=== PATIENT | male | born 1945 | race Caucasian/White ===

== ENCOUNTER 2019-01-21 09:28 | Day surgery (SDC) | payer MEDICARE, OTHER ==
[2019-01-20 08:43] VITALS: BMI 32.1
--- NOTE | 2019-01-21 19:40 | OP ---
DATE OF PROCEDURE: 01/21/2019 PARCEL WRAPPER SURGEON: None. PROCEDURES PERFORMED: 1. Esophagogastroduodenoscopy with biopsies. 2. Colonoscopy, diagnostic. INDICATIONS: 1. Melena. 2. Acute blood loss anemia. 3. Hematemesis, single episode this morning. 4. The patient has a left lower extremity DVT and was recently started on Eliquis. His aspirin has been held, but Eliquis continued per the recommendations of his chief data officer. 5. The patient reports having had a normal colonoscopy 3 years ago. MEDICATIONS: See Anesthesia record. FINDINGS: After discussion of the risks, benefits, and alternatives of the procedure, informed consent was obtained and witnessed. Pre-endoscopic cardiopulmonary examination was satisfactory. Time-out was performed before sedation was achieved. Sedation was achieved with Anesthesia assistance in the endoscopy unit. A Pentax adult upper endoscope was placed into the oropharynx and passed through the cricopharyngeus under direct visualization. The esophageal mucosa appeared normal throughout with a normal-appearing Z-line. However, just beyond the Z-line at the GE junction, there was a mass lesion. This measures about 2 to 3 cm in diameter. It was friable, and there was some mild active oozing of blood from some mild ulcerated areas on this mass. There was no significant old blood or active bleeding in the stomach however. I obtained a couple of biopsies from this mass lesion. Increased oozing was minimal. The remainder of the gastric mucosa appeared normal. The endoscope was passed through the pylorus and into the first and second portions of the duodenum, which appeared normal. The upper endoscope was completely withdrawn, and the patient was repositioned. Digital rectal exam was performed, which was unremarkable. A Pentax adult colonoscope was inserted into the anus and passed forward to the cecum in the usual fashion. The cecal base was identified by the appendiceal orifice. It appears the patient has had an ileocecal anastomosis. The anastomotic area looks healthy without any friability. The endoscope was passed into the terminal ileum, which was examined to a distance of 5 cm and also appeared normal. The colonoscope was completely withdrawn in a gradual and circumferential manner with careful examination of the entire colonic mucosa. The quality of the prep was good. There was no evidence of any old blood or active bleeding in the colon. There were 2 small 5-mm sessile polyps visualized in the colon, one was at 70-cm from the anal verge and the other was at 25-cm from the anal verge. Due to the patient's being on Eliquis as well as significant upper endoscopy findings, I did not attempt polypectomy on these small polyps today. There was diverticulosis in the left side of the colon. Retroflexion of the rectum demonstrates no additional abnormalities. The colonoscope was completely withdrawn, and the patient was allowed to recover. The patient tolerated the procedure well. There were no immediate postprocedure complications. IMPRESSION: 1. GE junction mass with mild active oozing, measuring 2 to 3 cm in diameter. Biopsied for histology. 2. Otherwise normal esophagogastroduodenoscopy. 3. Small sessile colon polyps at 70-cm and 25-cm, not removed. 4. Left-sided colonic diverticulosis. 5. Healthy ileocolonic anastomosis at 90 cm. 6. Otherwise, normal colonoscopy. RECOMMENDATIONS: 1. Follow up pathology on the GE junction mass biopsies. 2. Continue with oral proton pump inhibitor twice daily. 3. We will arrange for a CT of the chest, abdomen, and pelvis with contrast for staging of likely malignancy. 4. Recheck CBC next week. 5. If the GE junction mass biopsies confirm malignancy, the patient will need referral to surgery as well as Oncology. Job ID: [id number]
== END 2019-01-21 13:05 | disposition home or self-care (01) ==
LOC: SDC 09:28
PROVIDERS: ATTEND Internal Medicine
PROC: 0DB48ZX Excision of Esophagogastric Junction, Via Natural or Artificial Opening Endoscopic, Diagnostic (ICD-10-PCS; principal; 2019-01-21)
PROC: 0DJD8ZZ Inspection of Lower Intestinal Tract, Via Natural or Artificial Opening Endoscopic (ICD-10-PCS; 2019-01-21)
DX: K57.31 Diverticulosis of large intestine without perforation or abscess with bleeding (principal); D62 Acute posthemorrhagic anemia; K63.5 Polyp of colon; C16.0 Malignant neoplasm of cardia; K92.0 Hematemesis; K22.8 Other specified diseases of esophagus; M19.90 Unspecified osteoarthritis, unspecified site; N18.9 Chronic kidney disease, unspecified; J98.4 Other disorders of lung; I50.9 Heart failure, unspecified; Z79.01 Long term (current) use of anticoagulants; Z79.82 Long term (current) use of aspirin; Z87.891 Personal history of nicotine dependence; Z88.1 Allergy status to other antibiotic agents; Z88.8 Allergy status to other drugs, medicaments and biological substances; Z95.0 Presence of cardiac pacemaker
CPT/HCPCS: 88305; 88313

== ENCOUNTER 2019-01-25 13:18 | Outpatient (CLI) | payer MEDICARE, OTHER ==
--- NOTE | 2019-01-25 15:25 | CT ---
CT chest noncontrast CT abdomen and pelvis noncontrast HISTORY: Cancer of the gastroesophageal junction. COMPARISON: 12/14/2013. FINDINGS: Lungs are hyperinflated with scattered emphysematous changes. No focal mass. No pleural flu id or pneumothorax. Prominent calcification within the arterial structures, including the coronary arteries. Renal insufficiency precluded IV contrast administration. This limits evaluation of the soft tissues. No bulky mediastinal adenopathy is apparent. Oral contrast was administered. No evidence of bowel obstruction. Focal area of soft tissue lesion at the GE junction is 3.6 x 3.3 cm diameters on the axial images and likely accounts for the historically stated neoplasm. Hyperdense stones within the dependent portion of the gallbladder lumen. Prominent lobulation of urin casimiro bladder that contains gas and small amount of gas within the left renal collecting system are stable. Right kidney is surgically absent. Postoperative changes of the pelvis. IMPRESSION: No evidence of metastatic disease. Soft tissue density mass at the GE junction consistent with the support restated neoplasm. Renal insufficiency precluded IV contrast administration, limiting evaluation of the soft tissues. Status post right nephrectomy. Postoperative changes of the pelvis appear stable. Cholelithiasis. Emphysema. Atherosclerosis.
== END 2019-01-25 13:19 | disposition home or self-care (01) ==
LOC: BICCT 13:18
PROVIDERS: ATTEND Internal Medicine
DX: C16.0 Malignant neoplasm of cardia (principal); N28.9 Disorder of kidney and ureter, unspecified; Z98.890 Other specified postprocedural states; K80.20 Calculus of gallbladder without cholecystitis without obstruction; I70.90 Unspecified atherosclerosis; J43.9 Emphysema, unspecified
CPT/HCPCS: 71250; 74177

== ENCOUNTER 2019-02-13 18:07 | Inpatient (IN) | payer MEDICARE, OTHER ==
--- NOTE | 2019-02-13 18:52 | RAD ---
ONE VIEW CHEST: 02/13/19 HISTORY: Dyspnea. Difficulty breathing. COMPARISON: None. FINDINGS: Left sided transvenous pacemaker with lead position over the right atrium and right ventricle. There is atherosclerosis of the aorta. Normal cardiac silhouette. The pulmonary vessels and hilum are vane l. Costophrenic angles are clear. Emphysematous changes predominantly in the upper lobes. No pneumoth orax or osseous abnormalities. IMPRESSION: 1. Atherosclerosis. 2. No acute cardiopulmonary process. 3. Emphysema predominantly involving both upper lobes. POS: PPP
[2019-02-13 19:09] LABS: #Eosinphils 0.1 thou/uL (0.0-0.7); #Lymphocytes 0.6 thou/uL (1.20-3.40); #Monocytes 0.6 thou/uL (0.11-0.59); #Neutrophils 10.3 thou/uL (1.40-6.50); %Basophils 0.1 % (0.0-1.0); %Lymphocytes 4.9 % (21.0-51.0); %Monocytes 5.4 % (0.0-10.0); %Neutrophils 88.6 % (42.0-75.0); Hemoglobin 6.5 g/dL (14.0-18.0); Mean Corpuscular HGB CONC 33.2 g/dL (32.0-36.0); Mean Corpuscular Hemoglobin 33.8 pg (27.0-31.0); Mean Platelet Volume 7.9 fL (7.4-10.4); Platelet Count 204 thou/uL (130-400); RBC Distribution Width 15.9 % (11.5-14.5); Red Blood Cell (RBC) Count 1.93 mill/uL (4.70-6.10); White Blood Cell (WBC) Count 11.6 thou/uL (4.8-10.8)
[2019-02-13 19:29] LABS: ALT (SGPT) 28 U/L (8-55); AST (SGOT) 19 U/L (5-34); Albumin 3.2 g/dL (3.4-4.8); Alkaline Phosphatase 52 U/L (40-150); Anion Gap 13 mmol/L (10-20); BUN (Urea Nitrogen) 73 mg/dL (8.4-25.7); Bilirubin, Total 0.4 mg/dL (0.2-1.2); CK (CPK) 11 U/L (30-200); Calc. Creatinine Clearance 0 mL/min (70-130); Calcium 8.4 mg/dL (7.8-10.44); Carbon Dioxide 17 mmol/L (23-31); Chloride 117 mmol/L (98-107); Estimated GFR-MDRD 22; Globulin 2.6 g/dL (2.4-3.5); Glucose 138 mg/dL (83-110); Lipase 64 U/L (8-78); Protein, Total 5.8 g/dL (5.8-8.1); Sodium 143 mmol/L (136-145)
[2019-02-13 20:35] LABS: Bilirubin Negative (Negative); Blood, Urine Negative (Negative); Clarity CLOUDY (Clear); Glucose, Urine (Dipstick) Negative (Negative); Leukocyte Negative (Negative); Nitrite Negative (Negative); Protein, Urine (Dipstick) Trace mg/dL (Neg-Trace); Urobilinogen 0.2 mg/dL (0.2-1.0)
[2019-02-13 20:48] LABS: INR-International Normal Ratio 1.6; PTT 28.9 SEC (22.9-36.1)
[2019-02-13 20:49] LABS: D-Dimer Test 0.34 *mcg/mL (0.27-0.43)
[2019-02-13] MEDS ORDERED: Pantoprazole 40 MG VIAL ONE (20:53)
[2019-02-13] MEDS ORDERED: Pantoprazole 80 MG, Admixture Fee 1 EACH in Sodium Chloride 0.9% 100 ML IVPB SCH ×2 (21:00→21:15)
[2019-02-13] MEDS ORDERED: Diabetic Tussin 200 MG/10 ML UDCUP PO PRN (21:11)
[2019-02-13] MEDS ORDERED: Benzonatate 100 MG CAP PO PRN (21:11)
[2019-02-13] MEDS ORDERED: Loratadine 10 MG TAB PO PRN (21:11)
[2019-02-13] MEDS ORDERED: cloNIDine 0.1 MG TAB PO PRN (21:11)
[2019-02-13] MEDS ORDERED: hydrALAZINE 20 MG/ML VIAL SLOW IVP PRN (21:11)
[2019-02-13] MEDS ORDERED: Sodium Chloride 0.65% Nasal 44 ML BOT EA NARE PRN (21:11)
[2019-02-13] MEDS ORDERED: Ondansetron PF 4 MG/2 ML Vial IVP PRN (21:11)
[2019-02-13] MEDS ORDERED: Artificial Tear Sol 15 ML BOT EA EYE PRN (21:11)
[2019-02-13] MEDS ORDERED: Furosemide 20 MG/2 ML VIAL SLOW IVP SCH (21:45)
--- NOTE | 2019-02-13 22:49 | HP ---
CHIEF COMPLAINT: Shortness of breath and generalized weakness. PRIMARY CARE PHYSICIAN: Ellis Espinal MD PRIMARY SALES TEAM RECRUITER: Lopez Scott MD. PRIMARY PAN GREASER: Dr. Brody. HISTORY OF PRESENTING ILLNESS: Mr. De La Rosa is a pleasant 73-year-old male with past medical history of chronic kidney disease due to right nephrectomy and history of bladder cancer, status post neobladder formation; history of chronic systolic congestive heart failure with EF of 30%, status post pacemaker defibrillator and recent diagnosis of DVT, on chronic anticoagulation with Eliquis, who presented to the emergency room with the above-mentioned complaint. History is mainly obtained by the patient himself and the electronic medical records have been reviewed. Mr. 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 He has been seen by Dr. Hankins and started on radiation treatment over at [facility] in [place]. He is scheduled to start chemotherapy day after tomorrow by Dr. Pandya. He was having melena and was referred to [facility] and underwent EGD and colonoscopy on 01/21/2019. This is how his GE junction tumor was diagnosed. It was found out that the oozing at the tumor mass was not amenable to cauterization. Of important to note is that the patient was recently diagnosed with DVT about 3 weeks ago and was started on Eliquis. After he was treated for melena after he his EGD, it was decided that he will continue his Eliquis given high risk of DVT and PE and he was taken off his aspirin by his primary cosmetologist apprentice, Dr. Scott. He was admitted to [facility] earlier this week for radiation treatment. He continues to have melena and required transfusion 1 unit packed RBC x2 over at [facility]. He was discharged and continued on Eliquis. Now, he comes back to the ER because he is having severe generalized weakness and started to develop shortness of breath. He continues to have melena and describes it as a mucousy tardy-looking fluid without any stools. He denies any blood in his urine. He denies any chest pain, orthopnea, or PND. He has chronic swelling of his legs, which is not any worse than before. In the ER room, he was found to have a hemoglobin of 6.5, which was 11.8 in our system on 01/14/2019. His coagulation panel was rather unimpressive and within normal limits. Cardiac enzymes and urinalysis were unremarkable. Stool testing was done in the ER which was positive for fecal occult blood. Two units of packed RBC was ordered as well as Protonix drip. He is otherwise hemodynamically stable and is being admitted to Oncology floor for acute drop in hemoglobin and resultant shortness of breath due to severe anemia. PAST MEDICAL HISTORY: 1. History of bladder cancer, status post bladder resection and ileal conduit. 2. History of chronic kidney disease due to right nephrectomy. 3. History of dilated cardiomyopathy with EF of 30%, status post pacemaker and defibrillator placement. 4. Acute DVT, started on Eliquis about 3 weeks ago. 5. Chronic lung disease. 6. Chronic systolic congestive heart failure. 7. Osteoarthritis. PAST SURGICAL HISTORY: 1. Defibrillator placement insertion in 2007. 2. Right nephrectomy. 3. Right-sided stoma. 4. Bladder removal. 5. Hernia repair of abdominal wall. 6. Prostatectomy. 7. Colonoscopy in 2015 and 2019 with EGD in 2019, three weeks ago. SOCIAL HISTORY: No history of drug, tobacco, or alcohol abuse. He is and retired. FAMILY HISTORY: No significant family history of any GI illness, like colon cancer, Crohn's disease, ulcerative colitis, or IBD. No history of coronary artery disease runs in his family. ALLERGIES: INCLUDE BACTRIM, CODEINE, ERYTHROMYCIN, LATEX, LEVOFLOXACIN, NEOMYCIN, NEOSPORIN, PENICILLIN, PFIZERPEN, PHENERGAN, AND SULFONAMIDE. CURRENT HOME MEDICATION: As listed in the ER records, 1. Carvedilol 6.25 mg p.o. b.i.d. 2. Eliquis 5 mg p.o. b.i.d. 3. Folic acid 400 mcg daily. 4. Lasix 20 mg two tabs in the morning. 5. Potassium chloride 10 mEq daily. 6. Advair Diskus once daily. 7. Lovaza 1 g two tablets once a day. 8. Zyrtec p.r.n. 9. Amiodarone 200 mg daily. 10. Multivitamin daily. 11. Aspirin was taken off recently. 12. Protonix 40 mg daily. 13. Simvastatin 20 mg daily. These medications further need to be confirmed. CODE STATUS: Full code, discussed with the patient. REVIEW OF SYSTEMS: A 14-point review of system is done. It is negative, except for those mentioned in the history and physical. PHYSICAL EXAMINATION: VITAL SIGNS: Upon presentation, blood pressure 125/59, pulse of 77, respirations 20, temperature 97.8, and saturating 98% on room air. GENERAL EXAMINATION: No acute distress. Awake, alert, and oriented x3 and nontoxic appearing. HEENT: Mucous membrane is slightly pale, otherwise moist. Conjunctivae; pallor is noticed without any scleral icterus. Head is normocephalic and atraumatic. Pupils are equal and reactive to light and accommodation. Extraocular movement intact. NECK: Supple without any lymphadenopathy, JVD, or bruit. CHEST: Clear to auscultation without any wheezing, rales, or rhonchi. Rate rhythm is regular without any murmurs, rubs, or gallops. ABDOMEN: Soft, nontender, and nondistended with positive bowel sounds. EXTREMITIES: Free of any cyanosis or clubbing. He has +2 pitting edema in his right lower extremity and +1 pitting edema on left lower extremity. GENITOURINARY: He has a urinary diversion to his right lower abdomen. NEUROLOGICAL EXAMINATION: Nonfocal. SKIN: Free of any rashes or bruises. Feels warm and dry to touch. LABORATORY DATA: His CBC shows WBCs 11.6 with 88% neutrophils, hemoglobin 6.5, and platelet count of 204. PT, PTT, INR, and D-dimer are within normal limits. Serum chemistry showed chloride 117, bicarb 17, BUN 73, creatinine 2.87, and blood sugar 138. Troponin is less than 0.010. Lipase normal. Urinalysis unremarkable. Chest x-ray by my review has no evidence of pleural effusion, edema, or infiltrate. IMPRESSION AND PLAN: 1. Acute blood loss anemia. The patient will be transfused 2 units of packed RBC with one dose of Lasix in between. We will check H and H after the 2 units transfusion and again every 6 hours or so. We will keep him n.p.o. after midnight and consult Gastroenterology in the morning. Patient may need further endoscopy though he tells me that the first time it was found out that his oozing tumor was not amenable to cauterization. He will be started on proton pump drip for now. He is otherwise hemodynamically stable. We will admit him to Oncology floor. We will hold his Eliquis for now. I had a long discussion with him with regard to that and he is agreeable for it for now. 2. Dyspnea. This is secondary to acute blood loss anemia. The patient does have history of chronic systolic congestive heart failure, but does not appear to be in any fluid overload for now. Cardiac enzymes were also within normal limits. Acute coronary syndrome is not suspected. He has no signs or symptoms to suggest a pulmonary embolism either. We will give him Lasix in between the blood transfusion and avoid any further fluid resuscitation. 3. Leukocytosis, unclear etiology, most likely reactive. Patient was recently treated over at [facility] for urinary tract infection as well. 4. History of cardiac arrhythmia. I am not sure what kind of arrhythmia it was, but he reports ablation x2 and is on amiodarone. We will continue his amiodarone for now to prevent arrhythmias due to ongoing illness. Hold his Eliquis for now. 5. Recent deep venous thrombosis. Patient is presenting with acute gastrointestinal bleed and the risk of bleeding is higher at this time than the risk of clotting. I have discussed this with the patient and we will hold the dose of the Eliquis tonight. He did take the dose this morning. I did bring up the discussion of IVC filter taking him off the Eliquis, but the patient is very reluctant to even discuss it. He would rather discuss it with his cosmetologist apprentice. I have encouraged him to do same sooner than later. Further anticoagulation as per GI recommendations. We will provide him with SCDs for now and early ambulation. 6. Gastroesophageal adenocarcinoma. The patient had a CT scan of the chest, abdomen, and pelvis on 01/25/2019, which did not show any metastasis. He will be continued on radiation therapy as per his radiation oncologist, Dr. Hankins and chemotherapy as per his oncologist, Dr. Pandya. We will consult Oncology if he stays here until Friday since he is supposed to be starting his chemotherapy on Friday. 7. History of chronic kidney disease. He is status post right-sided nephrectomy, likely due to bladder cancer as well as prostatectomy. We will avoid any nephrotoxic medications. He is currently at his baseline creatinine. We will check in the morning as well. We will request Dr. Brody to follow along if his creatinine worsens. 8. History of dilated cardiomyopathy with ejection fraction of 30%. We will restart his home medications as soon as possible, including carvedilol and Lasix. Continue amiodarone for now. 9. Dyslipidemia. Continue statin and Lovaza once he is cleared to take oral medications by Gastroenterology. 10. History of bladder cancer, status post right nephrectomy and prostatectomy with ileal conduit. Currently, his urinalysis does not show any evidence of infection. Stoma care will be provided. 11. History of chronic lung disease. Unsure what kind of lung disease he has, chronic obstructive pulmonary disease versus asthma versus reactive airways disease. Currently, he is asymptomatic and stable. We will use nebulizers p.r.n. while he is in the hospital. 12. Deep venous thrombosis and gastrointestinal prophylaxis. As above, proton pump inhibitor drip and SCDs. Avoid any pharmacological deep venous thrombosis prophylaxis given active gastrointestinal bleed. DISPOSITION: Mr. De La Rosa is currently being admitted to the hospital with acute GI bleed and acute blood loss anemia leading to dyspnea. Estimated length of stay at this time is at least 2 to 3 midnights. Further management will depend upon his clinical course. Job ID: [id number]
[2019-02-14 00:15] VITALS: BMI 30.4
[2019-02-14 05:19] LABS: #Eosinphils 0.1 thou/uL (0.0-0.7); #Lymphocytes 0.6 thou/uL (1.20-3.40); #Monocytes 0.4 thou/uL (0.11-0.59); #Neutrophils 5.3 thou/uL (1.40-6.50); %Basophils 0.3 % (0.0-1.0); %Eosinophils 1.4 % (0.0-10.0); %Lymphocytes 8.9 % (21.0-51.0); %Monocytes 6.1 % (0.0-10.0); %Neutrophils 83.2 % (42.0-75.0); Mean Corpuscular HGB CONC 33.7 g/dL (32.0-36.0); Mean Corpuscular Hemoglobin 32.5 pg (27.0-31.0); Mean Corpuscular Volume 96.6 fL (78.0-98.0); Mean Platelet Volume 8.7 fL (7.4-10.4); Platelet Count 116 thou/uL (130-400); RBC Distribution Width 16.8 % (11.5-14.5); Red Blood Cell (RBC) Count 3.06 mill/uL (4.70-6.10); White Blood Cell (WBC) Count 6.3 thou/uL (4.8-10.8)
[2019-02-14 05:49] LABS: Anion Gap 13 mmol/L (10-20); BUN (Urea Nitrogen) 72 mg/dL (8.4-25.7); Calc. Creatinine Clearance 31 mL/min (70-130); Calcium 7.9 mg/dL (7.8-10.44); Carbon Dioxide 18 mmol/L (23-31); Chloride 119 mmol/L (98-107); Estimated GFR-MDRD 23; Glucose 103 mg/dL (83-110); Potassium 3.6 mmol/L (3.5-5.1); Sodium 146 mmol/L (136-145)
[2019-02-14] MEDS: Amiodarone 200 MG TAB PO SCH (09:56)
[2019-02-14] MEDS ORDERED: Carvedilol 6.25 MG TAB PO SCH (10:30)
[2019-02-14] MEDS ORDERED: Calcitriol 0.25 MCG CAP PO SCH (10:45)
--- NOTE | 2019-02-14 10:50 | PDOC.PN ---
- Subjective Encounter Start Date: 02/14/19 (f/u GI bleed) Encounter Start Time: 10:48 Subjective: Pt without complaints today, denies any shortness of breath. -: denies any n/v. Reports dark tarry stools - Objective Vital Signs & Weight: Vital Signs (12 hours) Temp Pulse Resp BP Pulse Ox 02/14/19 08:00 98 02/14/19 07:40 97.7 F 70 18 147/65 H 98 02/14/19 05:04 98.5 F 70 16 127/59 L 02/14/19 00:33 97.6 F 80 16 134/60 97 Weight Weight 206 lb 9 oz I&O: 02/13/19 02/14/19 02/15/19 06:59 06:59 06:59 Intake Total 1150 Output Total 1200 625 Balance -50 -625 Result Diagrams: 02/14/19 05:06 02/14/19 05:06 Phys Exam - Physical Examination Constitutional: NAD Respiratory: no wheezing, no rales, no rhonchi, clear to auscultation bilateral Cardiovascular: RRR, no significant murmur Gastrointestinal: soft, non-tender, no distention, positive bowel sounds RLE edema - pt reports chronic Neurological: non-focal, moves all 4 limbs Psychiatric: normal affect Dx/Plan (1) GI bleed Code(s): K92.2 - GASTROINTESTINAL HEMORRHAGE, UNSPECIFIED Status: Acute (2) Adenocarcinoma Code(s): C80.1 - MALIGNANT (PRIMARY) NEOPLASM, UNSPECIFIED Status: Acute (3) DVT (deep venous thrombosis) Code(s): I82.409 - ACUTE EMBOLISM AND THOMBOS UNSP DEEP VN UNSP LOWER EXTREMITY Status: Acute (4) Systolic heart failure Code(s): I50.20 - UNSPECIFIED SYSTOLIC (CONGESTIVE) HEART FAILURE Status: Chronic Qualifiers: Heart failure chronicity: chronic Qualified Code(s): I50.22 - Chronic systolic (congestive) heart failure (5) Chronic kidney disease Code(s): N18.9 - CHRONIC KIDNEY DISEASE, UNSPECIFIED Status: Chronic Qualifiers: Chronic kidney disease stage: stage 3 (moderate) Qualified Code(s): N18.3 - Chronic kidney disease, stage 3 (moderate) (6) Chronic lung disease Code(s): J98.4 - OTHER DISORDERS OF LUNG Status: Chronic - Plan * Pt with complicated picture of adenocarcinoma that is bleeding and not amenable to cautery, on eliquis for DVT * Appreciate GI consult - endoscopy is not warranted. Need to address eliquis with regards to dosing and when to re-initiate * Consult Neprhology for CKD - review meds/monitor * Consult Oncology for adenocarcinoma, bleeding and Eliquis * Recheck CBC in AM along with BMP * resume many home meds - reconcilled * pt recently had UTI and hospitalization - Estefani/ANAHI contacted the med and pt was discharged with augmentin 875/125 - will continue this here. * * RLE edema chronic * * Pt not a candidate for scd's due to known clot. Full anticoagulation on hold. * gi prophy - received IV protonix, will continue oral protonix bid * * pt at high risk in current condition * reviewed plan of care with patient/, no questions or further needs at end of eval
[2019-02-14] MEDS ORDERED: Amoxicillin/Potassium Clav 875 MG TAB PO SCH (11:00)
[2019-02-14] MEDS ORDERED: Furosemide 40 MG TAB PO SCH (11:30)
--- NOTE | 2019-02-14 12:20 | CON ---
DATE OF CONSULTATION: 02/14/2019 CHIEF COMPLAINT: Weakness and black stools. HISTORY OF PRESENT ILLNESS: Mr. De La Rosa is a 73-year-old man with recently diagnosed esophageal cancer, who started radiation therapy last week. He was just admitted to the [facility] on 02/04/2019 with GI bleed. 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 He was diagnosed with a left leg deep vein thrombosis back around December 27. He was originally started on Coumadin and has since been changed to Eliquis after his recent admission on February 04. Ultimately, even though he has had intermittent black stools, it was felt that he needed to continue anticoagulation and start treatments for his distal esophageal cancer. He received radiation on and Friday of last week. On Friday, he developed multiple black sticky stools 4 to 6 times through the course of the day. On Friday, yesterday he had around 4 black stools. He became progressively weaker such that he had to walk with a walker. He has had no nausea or vomiting. He has had some vague abdominal discomfort that improves with eating ice cream, but no true significant pain or heartburn or dysphagia. His weight has been stable overall over the last 6 months. He did put on some fluid, but was diuresed at the previous hospitalization. He is scheduled to receive his first chemotherapy and again radiation tomorrow. He has been on Eliquis for the DVT. He received 2 units of transfusion last week per his report. 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 Bladder cancer, status post surgical resection. Myocardial infarction with PTCA back in the ; cardiac ablation. AICD and pacemaker placement. COPD, hypertension, hyperlipidemia, DVT diagnosed in December of 2018. He had also had a DVT several years ago. He has chronic renal insufficiency. He has a single kidney and prior bladder surgery. PAST SURGICAL HISTORY: Cystectomy with ileal pouch nephrectomy on the right. Pilonidal cyst. AICD with pacemaker ablation. FAMILY HISTORY: His father had bladder cancer. SOCIAL HISTORY: No alcohol, tobacco, or drugs. He is a former smoker. ALLERGIES: SULFA, PHENERGAN, ERYTHROMYCIN, LEVOFLOXACIN, NEOSPORIN, PENICILLIN. MEDICATIONS: Prior to admission, 1. Augmentin. 2. Nasacort. 3. Simvastatin. 4. Vitamin C. 5. Vitamin B6. 6. Pantoprazole 40 mg twice daily. 7. Potassium. 8. [place]-3. 9. Multiple vitamins. 10. Furosemide. 11. Advair. 12. Vitamin B12. 13. Zyrtec. 14. Carvedilol. 15. Calcitriol. 16. Digestive probiotic. 17. Amiodarone. 18. Eliquis 5 mg twice daily. REVIEW OF SYSTEMS: Negative x10 systems reviewed, except as stated in the history of present illness. PHYSICAL EXAMINATION: VITAL SIGNS: Temperature 97.7, pulse 70, blood pressure 147/65. GENERAL: He is in no acute distress. He is alert and oriented x3. HEENT: Eyes have no scleral icterus. Oropharynx is clear without lesions. No cervical or supraclavicular lymphadenopathy. LUNGS: Clear to auscultation bilaterally. HEART: Regular rate and rhythm without murmur. ABDOMEN: Soft, nontender, and nondistended. Bowel sounds are present. EXTREMITIES: No lower extremity edema. NEUROLOGIC: Cranial nerves are grossly intact. LABORATORY DATA: White blood cell count is 6.3, hemoglobin is 10.5 today after 2 units of transfusion. Hemoglobin on presentation to the ER yesterday was 6.5. Platelets 116. INR 1.6. Creatinine 2.78, bilirubin 0.4, AST 19, ALT 28, alkaline phosphatase 52, albumin 3.2, lipase 64. IMPRESSION: 1. Acute on chronic gastrointestinal bleeding, most likely from the adenocarcinoma at the gastroesophageal junction. He is status post radiation for his first two treatments last week. He has been passing intermittent black stools over the last 3 weeks; however, he had increased black stool output over the last couple of days and developed symptomatic anemia with that. Endoscopy is unlikely to be helpful at this time and the primary issue now will be considering adjustment of the anticoagulation and continuation of acid suppression and transfusing as needed. 2. 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 3. Deep vein thrombosis diagnosed in December of 2018. He has been on Eliquis 5 mg twice daily. Given his multiple comorbidities and chronic renal insufficiency with a baseline creatinine of 2.78 and a solitary kidney. He might be able to be adequately managed with a lower dose of the Eliquis. He maybe toxic with the Eliquis given the elevated INR on presentation; however, we cannot really measure this. The options at this point include continuing the Eliquis at 5 mg twice daily with transfusion as needed versus trying to reduce the dose of the Eliquis to 2.5 mg twice daily based on his renal function and bleeding. Third option would be IVC filter. Ultimately, I will defer recommendations regarding dosing of the Eliquis to Dr. Pandya and Dr. Scott. 4. Chronic renal insufficiency. RECOMMENDATIONS: 1. Hold Eliquis for now. Transfuse as necessary. His hemoglobin might not have been truly as low was reflected on the initial blood draw given that after 2 units, his hemoglobin has improved to 10. 2. Follow up with Dr. Pandya tomorrow. Decision regarding anticoagulation as stated above. 3. Proton pump inhibitor twice daily. 4. I will advance his diet given that I do not plan endoscopic intervention at this time. Job ID: [id number]
--- NOTE | 2019-02-14 12:39 | CON ---
DATE OF CONSULTATION: HISTORY OF PRESENT ILLNESS: Mr. De La Rosa is a 73-year-old white male, who was admitted for generalized malaise. He was noted to be symptomatically anemic. Of interest, this patient was recently admitted at the [facility]. He was followed up by the Renal Service at that time. Renal function has been stable. We are being consulted for further management of his chronic renal failure. Please note, this patient had a recent diagnosis of gastric carcinoma. He has already received [address] Hankins as an outpatient. This was given after his discharge. He received this and Friday. The patient is feeling better. He was given 2 units of packed RBC. In addition, the patient's Eliquis has been placed on hold. This was given for his DVT. At that time, it was felt DVT was not ready to get an IVC filter placed. REVIEW OF SYSTEMS: Positive for generalized malaise. No abdominal pain. No shortness of breath. No nausea. No vomiting. No diarrhea. No constipation. No productive cough. Denies any overt hematochezia or melena. No appetite. Energy level is fair. MEDICATIONS: The patient is currently on the following medication, 1. Amiodarone 200 mg tablet daily. 2. Augmentin 875 mg p.o. b.i.d. 3. Atorvastatin 10 mg tablet at bedtime. 4. Calcitriol 0.25 mcg daily. 5. Eliquis on hold. 6. Carvedilol 6.25 mg p.o. b.i.d. 7. Clonidine 0.1 mg q.4 p.r.n. 8. Furosemide 40 mg daily. 9. Mometasone oral inhaler as directed. 10. KCl 20 mEq q.a.m. 11. Furosemide 40 mg tablet once a day. PAST MEDICAL HISTORY: 1. Recent diagnosis of DVT. 2. Recent diagnosis of gastric carcinoma. 3. Chronic renal failure. 4. History of cardiomyopathy, EF of 30%. 5. Chronic lung disease. 6. Status post CHF. 7. DJD. 8. Bladder cancer in remission. PAST SURGICAL HISTORY: Status post bladder resection with ileal conduit, status post cystoscopy, status post right nephrectomy, status post prostatectomy status post colonoscopy, status post upper GI endoscopy, status post hernia repair of abdominal wall, status post cystectomy, status post AICD placement. SOCIAL HISTORY: The patient is . Lives around the [place] area. No IV drug abuse. No alcohol. No smoking. Status post blood transfusion. FAMILY HISTORY: No family history of ESRD. ALLERGIES: INCLUDES THE FOLLOWING BACTRIM, CODEINE, ERYTHROMYCIN, LEVAQUIN, NEOMYCIN, PENICILLIN. FAMILY HISTORY: No family history of ESRD. TRAUMA: None. IMMUNIZATION: Up-to-date. HOSPITALIZATION: Please see past medical history. PHYSICAL EXAMINATION: VITAL SIGNS: Blood pressure is 147/65, heart rate 72, respiratory rate 18, temperature 97.7, and pulse ox 98%. GENERAL: Awake, alert, comfortable, not in distress. SKIN: Adequate turgor. HEENT: Pinkish conjunctivae. Anicteric sclerae. NECK: No neck mass. No carotid bruits. No JVD. CHEST: No deformities. LUNGS: Decreased breath sounds. HEART: Normal sinus rhythm. No murmur. No gallops. No rubs. ABDOMEN: Globular, soft, nontender. No masses. EXTREMITIES: Trace edema. NEUROLOGICAL: Awake, oriented to 3 spheres. Moving all extremities. No tremors/asterixis. No ataxia. LABORATORY DATA: Laboratories of 02/14/2019, white count 6.2, hemoglobin 10. Sodium 146, potassium 3.6, chloride 119, carbon dioxide 18, BUN 72, creatinine 2.7, glucose 103, calcium 7.9. February 13, 2019, creatinine 2.87, BUN is 83. IMAGING STUDIES: Chest x-ray of February 13, 2019, shows no acute cardiopulmonary process. Emphysema in both lungs. ASSESSMENT AND PLAN: 1. Chronic renal failure, relatively stable renal function. If renal function will further worsen or not improve significantly in the next 24 to 48 hours, consider holding off the Lasix and potassium supplementation with this patient. Continue to optimize hemodynamics. 2. Anemia-the patient was symptomatic and received 2 units of packed RBC. He is feeling much better. His hemoglobin has much improved. 3. Gastric carcinoma-currently on radiation therapy. Eventually, the patient will need to have chemotherapy. This will depend on his renal dysfunction. Overall, agree with current management. We will recheck basic metabolic profile and CBC in a.m. Addendum: We will adjust Augmentin based on the renal function. Job ID: [id number]
[2019-02-14] MEDS: Carvedilol 6.25 MG TAB PO SCH (18:06)
--- NOTE | 2019-02-14 18:35 | CON ---
DATE OF CONSULTATION: REASON FOR CONSULTATION: EG junction adenocarcinoma. HISTORY OF PRESENT ILLNESS: Mr. De La Rosa is a pleasant 73-year-old gentleman with a past medical history of transitional cell carcinoma of the bladder, who was diagnosed with EG junction adenocarcinoma on January 21, 2019. He has a T3 N0 M0 cancer. He was started on radiation with Dr. Hankins this past . On Friday, he began to felt poorly. By Friday, he was short of breath, had abdominal cramping and dark tarry stool. He presented to the emergency room for evaluation. He was noted to have a hemoglobin of 6.5. He had a positive guaiac stool. He was admitted for GI bleed, transfused 2 units of packed RBCs with excellent response. We were asked to see the patient regarding his treatment. PAST MEDICAL HISTORY: 1. Newly diagnosed adenocarcinoma of the GE junction. 2. 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 3. Coronary artery disease. 4. Lower extremity DVT. PAST SURGICAL HISTORY: 1. Cystoprostatectomy. 2. Nephrostomy. 3. Right nephrectomy. 4. Pacemaker placement. 5. Rectal fistula repair. 6. Cardiac ablation. 7. Recent EGD. ALLERGIES: TO ERYTHROMYCIN, LEVAQUIN, NEOSPORIN, PENICILLIN, PHENERGAN, AND SULFA. HOME MEDICATIONS: Amiodarone, Eliquis, vitamin C, calcitriol, Coreg, vitamin B12, Advair, folic acid, furosemide, multivitamin, Lovaza, Protonix, potassium, vitamin B6, simvastatin. FAMILY HISTORY: Father had bladder cancer. SOCIAL HISTORY: , lives with his spouse. Former smoker, discontinued in 1992. No alcohol or illicit drug use. REVIEW OF SYSTEMS: A 10-point review of systems is negative except for noted in HPI. PHYSICAL EXAMINATION: VITAL SIGNS: Temperature is 97.7, pulse is 70, respiratory rate 18, BP is 147/65. He is 98% on room air. GENERAL: Well-developed, well-nourished male, in no acute distress. HEENT: Normocephalic, atraumatic. Pupils are equal and reactive to light. NECK: Supple. CV: Regular rate and rhythm. LUNGS: Clear. ABDOMEN: Soft and nontender. Bowel sounds are positive. EXTREMITIES: No clubbing, cyanosis, or edema. SKIN: No rash. HEMATOLOGIC: No petechiae or purpura. NEUROLOGIC: Nonfocal. PSYCH: Alert and oriented. PERTINENT LABS AND X-RAYS: Current WBCs are 6.3, hemoglobin 10, hematocrit 29.5, platelet count 116,000, 83% neutrophils, 9% lymphocytes. PT is 19, INR is 1.6, and PTT is 28.9. Sodium 146, potassium 3.6, chloride 119, CO2 is 18, BUN is 72, creatinine 2.78, calcium is 7.9, total bilirubin is 0.4, AST is 19, ALT is 28, alkaline phosphatase is 52. Creatine kinase is 11. Troponin is negative. Serum total protein 5.8, albumin 3.2, globulin 2.6, lipase 64. Chest x-ray showed no acute findings. ASSESSMENT: 1. Newly diagnosed gastroesophageal junction adenocarcinoma. 2. Gastrointestinal bleed. 3. Recent deep venous thrombosis, started on Eliquis. DISCUSSION: The patient's GI bleed is likely from his esophageal-gastro tumor. He has completed 2 doses of radiation and is due for chemotherapy this Friday. He has been transfused with good response and feels well with no shortness of breath or weakness. I am sure his Eliquis is contributing to his bleeding. He will discuss with Cardiology whether he can reduce the dose from 5 mg to 2.5 mg. It is currently being held. We will recheck a CBC in the morning and if it remains stable, he can be discharged home to follow up with Dr. Hankins for radiation tomorrow. We will likely postpone his scheduled chemotherapy from tomorrow until Friday or Friday of this week. I will coordinate that in the morning. Thank you for the consult. Job ID: [id number]
[2019-02-14] MEDS: Mometasone/Formoterol 120 PUFF INHALER INH SCH (20:01)
[2019-02-14] MEDS: Amoxicillin/Potassium Clav 875 MG TAB PO SCH (20:48)
[2019-02-14] MEDS: Atorvastatin Calcium 10 MG TAB PO SCH (20:48)
[2019-02-14] MEDS: Calcitriol 0.25 MCG CAP PO SCH (20:51)
[2019-02-15] MEDS: Mometasone/Formoterol 120 PUFF INHALER INH SCH ×2 (06:27→20:15)
[2019-02-15 06:39] LABS: Anion Gap 13 mmol/L (10-20); BUN (Urea Nitrogen) 64 mg/dL (8.4-25.7); Calc. Creatinine Clearance 32 mL/min (70-130); Calcium 7.8 mg/dL (7.8-10.44); Carbon Dioxide 17 mmol/L (23-31); Chloride 117 mmol/L (98-107); Estimated GFR-MDRD 23; Glucose 101 mg/dL (83-110); Hemoglobin 6.8 g/dL (14.0-18.0); Mean Corpuscular HGB CONC 33.3 g/dL (32.0-36.0); Mean Corpuscular Hemoglobin 32.3 pg (27.0-31.0); Mean Corpuscular Volume 96.9 fL (78.0-98.0); Mean Platelet Volume 8.1 fL (7.4-10.4); Platelet Count 139 thou/uL (130-400); Potassium 3.2 mmol/L (3.5-5.1); RBC Distribution Width 17.5 % (11.5-14.5); Sodium 144 mmol/L (136-145); White Blood Cell (WBC) Count 7.7 thou/uL (4.8-10.8)
[2019-02-15 06:40] LABS: #Eosinphils 0.1 thou/uL (0.0-0.7); #Lymphocytes 0.6 thou/uL (1.20-3.40); #Monocytes 0.4 thou/uL (0.11-0.59); #Neutrophils 6.6 thou/uL (1.40-6.50); %Eosinophils 1.7 % (0.0-10.0); %Lymphocytes 7.5 % (21.0-51.0); %Monocytes 5.3 % (0.0-10.0); %Neutrophils 85.5 % (42.0-75.0)
--- NOTE | 2019-02-15 07:43 | PDOC.PN ---
- Subjective Encounter Start Date: 02/15/19 (f/u anemia) Encounter Start Time: 07:40 Subjective: Pt denies any complaints this morning. Denies any pain. Is due -: for radiation treatment today. - Objective Vital Signs & Weight: Vital Signs (12 hours) Temp Pulse Resp BP Pulse Ox 02/15/19 00:00 97.7 F 78 18 127/72 96 02/14/19 20:01 72 18 95 02/14/19 20:00 98 Weight Weight 206 lb 9 oz I&O: 02/14/19 02/15/19 02/16/19 06:59 06:59 06:59 Intake Total 1150 1100 Output Total 1200 2125 Balance -50 -1025 Result Diagrams: 02/15/19 06:05 02/15/19 06:05 Phys Exam - Physical Examination Constitutional: NAD Respiratory: no wheezing, no rales, no rhonchi, clear to auscultation bilateral Cardiovascular: RRR, no significant murmur Gastrointestinal: soft, non-tender, no distention, positive bowel sounds RLE edema unchanged - 1+ Neurological: non-focal Psychiatric: normal affect Dx/Plan (1) GI bleed Code(s): K92.2 - GASTROINTESTINAL HEMORRHAGE, UNSPECIFIED Status: Acute (2) Adenocarcinoma Code(s): C80.1 - MALIGNANT (PRIMARY) NEOPLASM, UNSPECIFIED Status: Acute (3) DVT (deep venous thrombosis) Code(s): I82.409 - ACUTE EMBOLISM AND THOMBOS UNSP DEEP VN UNSP LOWER EXTREMITY Status: Acute (4) Systolic heart failure Code(s): I50.20 - UNSPECIFIED SYSTOLIC (CONGESTIVE) HEART FAILURE Status: Chronic Qualifiers: Heart failure chronicity: chronic Qualified Code(s): I50.22 - Chronic systolic (congestive) heart failure (5) Chronic kidney disease Code(s): N18.9 - CHRONIC KIDNEY DISEASE, UNSPECIFIED Status: Chronic Qualifiers: Chronic kidney disease stage: stage 3 (moderate) Qualified Code(s): N18.3 - Chronic kidney disease, stage 3 (moderate) (6) Chronic lung disease Code(s): J98.4 - OTHER DISORDERS OF LUNG Status: Chronic - Plan * * Pt with complicated picture of adenocarcinoma that is bleeding and not amenable to cautery, on eliquis for DVT * Appreciate GI consult - endoscopy is not warranted. Need to address eliquis with regards to dosing and when to re-initiate * Appreciate Neprhology for CKD - monitor renal function * Appreciate Oncology recommendations - I'm uncertain if patient is a candidate for radiation today given the drop * Hb dropped to 6.8 this morning - transfuse 2 units of PRBC, 20 mg IV lasix after each unit * replace potassium - increase to 40 mEq BID for now given 2 doses of IV lasix today * * pt recently had UTI/bacteremia and hospitalization - Estefani/ANAHI contacted the med and pt was discharged with augmentin 875/125 - will continue this here - will need to determine duration of antibiotics through patient's pharmacy. [facility] in [place] * * RLE edema chronic * * Pt not a candidate for scd's due to known clot. Full anticoagulation on hold. * gi prophy - oral protonix bid * * pt at high risk in current condition * reviewed plan of care with patient/, no questions or further needs at end of eval.
[2019-02-15] MEDS ORDERED: Furosemide 20 MG/2 ML VIAL IVP SCH ×2 (07:45)
[2019-02-15] MEDS ORDERED: Potassium Chloride 20 MEQ TAB PO SCH (08:00)
[2019-02-15] MEDS: Amoxicillin/Potassium Clav 875 MG TAB PO SCH ×2 (08:49→20:10)
[2019-02-15] MEDS: Amiodarone 200 MG TAB PO SCH (08:49)
[2019-02-15] MEDS: Potassium Chloride 20 MEQ TAB PO SCH ×2 (08:49→17:51)
[2019-02-15] MEDS: Carvedilol 6.25 MG TAB PO SCH ×2 (08:50→17:51)
[2019-02-15] MEDS: Fluticasone Propionate Nasal Spray 16 gm Bottle NASAL SCH (08:51)
[2019-02-15] MEDS: Loratadine 10 MG TAB PO SCH (08:51)
[2019-02-15] MEDS ORDERED: Furosemide 40 MG TAB PO SCH (09:00)
[2019-02-15] MEDS ORDERED: POTASSIUM CHLORIDE PO SCH (09:00)
--- NOTE | 2019-02-15 10:06 | PRG ---
DATE OF SERVICE: 02/15/2019 SUBJECTIVE: Mr. De La Rosa is a 73-year-old white male, who was admitted for generalized malaise. He was noted to be symptomatic. He was admitted for symptomatic anemia. We are consulted for his chronic renal failure. Creatinine is stable at the most recent value of 2.75. When he came in, it was at 2.87. No other complaints. He is currently undergoing radiation therapy for his recent diagnosis of gastric carcinoma. No complaints of chest pain or shortness of breath. OBJECTIVE: VITAL SIGNS: Blood pressure 129/58, heart rate 72, respiratory rate 18, temperature 98.1, and pulse ox 95%. GENERAL: The patient is awake, supine, and comfortable, not in distress. SKIN: Adequate turgor. HEENT: Pale conjunctivae. Anicteric sclerae. NECK: No neck mass. No carotid bruits. No JVD. CHEST: No deformities. LUNGS: Clear breath sounds. No wheezing. No crackles. HEART: Normal sinus rhythm. No murmurs. No gallops. No rubs. ABDOMEN: Globular and soft. EXTREMITIES: No edema. MEDICATIONS: Medications of February 15, 2019, was reviewed. LABORATORY DATA: Laboratories of February 15, 2019; sodium 144, potassium 3.2, chloride 107, carbon dioxide 17, BUN 64, creatinine 2.75, glucose 101, and calcium 7.8. Hemoglobin 6.8. ASSESSMENT AND PLAN: 1. Anemia - we will transfuse 2 units of packed red blood cells after radiation therapy. 2. Gastric carcinoma - the patient is undergoing radiation therapy. 3. Acute kidney injury/chronic renal failure. Stable renal function. Creatinine of 2.7 is near baseline. No indication for any dialytic intervention. Continue to optimize hemodynamics. Agree with p.r.n. blood transfusion. 4. We will recheck basic metabolic and CBC in a.m. Job ID: [id number]
[2019-02-15] MEDS ORDERED: Dexamethasone 10 MG/ML VIAL SLOW IVP SCH (14:00)
[2019-02-15] MEDS ORDERED: PACLitaxel 100 MG in Sodium Chloride 0.9% 250 ML 250 ML IVPB SCH (14:00)
[2019-02-15] MEDS ORDERED: Ondansetron PF 4 MG/2 ML Vial IVP SCH (14:00)
[2019-02-15] MEDS ORDERED: SODIUM CHLORIDE 0.9% IVPB SCH (14:15)
[2019-02-15] MEDS ORDERED: CARBOPLATIN IVPB SCH (14:15)
[2019-02-15] MEDS: Acetaminophen 325 MG TAB PO PRN (15:57)
[2019-02-15] MEDS ORDERED: Ondansetron HCl/PF 10 MG in Sodium Chloride 0.9% 50 ML IVPB SCH (17:30)
[2019-02-15] MEDS ORDERED: Dexamethasone 10 MG in Sodium Chloride 0.9% 50 ML IVPB SCH (17:30)
--- NOTE | 2019-02-15 17:53 | PRG ---
DATE OF SERVICE: 02/15/2019 SUBJECTIVE: Mr. De La Rosa has not had any bowel movement so far today, though he feels he will probably have one in the next couple of hours. He has remained hemodynamically stable. His blood count did decline again from 10 to 6.8 yesterday and he is receiving two more units of RBC transfusion. He underwent another round of radiation today and is going to be getting his 1st round of chemotherapy this evening. OBJECTIVE: VITAL SIGNS: Temperature 97.9, blood pressure 132/59, pulse 72, 97% oxygen saturation on room air. GENERAL: No acute distress. HEART: Regular rate and rhythm. LUNGS: Clear to auscultation bilaterally. ABDOMEN: Soft and nontender to palpation. EXTREMITIES: No peripheral edema. LABORATORY STUDIES: Hemoglobin 6.8, WBC 7.7, platelets 139. INR 1.6. Sodium 144, potassium 3.2, BUN 64, creatinine 2.75 all stable. ASSESSMENT AND PLAN: 1. Adenocarcinoma of the gastroesophageal junction, recently diagnosed, now starting on radiation and chemotherapy. 2. Acute on chronic gastrointestinal bleeding, from the adenocarcinoma of the gastroesophageal junction. 3. Deep vein thrombosis diagnosed in December 2018, on chronic Eliquis. 4. Chronic renal insufficiency with solitary kidney. No evidence of overt bleeding today, though note the repeat significant hemoglobin decline. I agree with transfusion today. I discussed with the patient that unfortunately he is going to be at risk for continued or recurrent bleeding from this GE junction adenocarcinoma during treatment. There is really nothing we can do about this endoscopically. He should stay on a twice daily PPI. Otherwise, I agree with Dr. Durbin's recommendation to consider reduced dose of Eliquis such as 2.5 mg twice daily, particularly given his poor renal function. I would defer that decision to Dr. Pandya and Dr. Scott however. No further recommendations from a GI perspective. Continue with regular diet. Please call anytime with questions or concerns. Job ID: [id number]
[2019-02-15] MEDS: Calcitriol 0.25 MCG CAP PO SCH (20:10)
[2019-02-15] MEDS: Atorvastatin Calcium 10 MG TAB PO SCH (20:10)
[2019-02-16 04:48] LABS: #Lymphocytes 0.3 thou/uL (1.20-3.40); #Monocytes 0.1 thou/uL (0.11-0.59); #Neutrophils 8.7 thou/uL (1.40-6.50); %Eosinophils 0.3 % (0.0-10.0); %Lymphocytes 3.8 % (21.0-51.0); %Monocytes 0.9 % (0.0-10.0); Hemoglobin 8.7 g/dL (14.0-18.0); Mean Corpuscular HGB CONC 33.2 g/dL (32.0-36.0); Mean Corpuscular Volume 96.4 fL (78.0-98.0); Mean Platelet Volume 8.7 fL (7.4-10.4); Platelet Count 146 thou/uL (130-400); RBC Distribution Width 16.6 % (11.5-14.5); Red Blood Cell (RBC) Count 2.72 mill/uL (4.70-6.10); White Blood Cell (WBC) Count 9.1 thou/uL (4.8-10.8)
[2019-02-16 05:05] LABS: Anion Gap 12 mmol/L (10-20); BUN (Urea Nitrogen) 54 mg/dL (8.4-25.7); Calc. Creatinine Clearance 35 mL/min (70-130); Calcium 8.2 mg/dL (7.8-10.44); Carbon Dioxide 19 mmol/L (23-31); Chloride 117 mmol/L (98-107); Estimated GFR-MDRD 25; Glucose 166 mg/dL (83-110); Potassium 4.4 mmol/L (3.5-5.1); Sodium 144 mmol/L (136-145)
[2019-02-16] MEDS: Mometasone/Formoterol 120 PUFF INHALER INH SCH ×2 (06:23→18:55)
[2019-02-16] MEDS: Loratadine 10 MG TAB PO SCH (08:30)
[2019-02-16] MEDS: Amiodarone 200 MG TAB PO SCH (08:30)
[2019-02-16] MEDS: Potassium Chloride 20 MEQ TAB PO SCH (08:30)
[2019-02-16] MEDS: Carvedilol 6.25 MG TAB PO SCH ×2 (08:30→16:58)
[2019-02-16] MEDS: Amoxicillin/Potassium Clav 875 MG TAB PO SCH ×2 (08:30→21:00)
[2019-02-16] MEDS: Fluticasone Propionate Nasal Spray 16 gm Bottle NASAL SCH (08:31)
--- NOTE | 2019-02-16 09:34 | PRG ---
DATE OF SERVICE: 02/16/2019 SERVICE: Renal Medicine. SUBJECTIVE: Mr. De La Rosa is a 73-year-old white male with known history of acute kidney injury on top of his chronic renal failure. He had a superimposed hemodynamically-mediated renal dysfunction. Hemodynamics is being optimized. Renal function is stabilizing. He also had recent diagnosis of gastric carcinoma. He has received radiation therapy as well as chemotherapy. He also received 2 units of packed RBC yesterday. He is feeling better this morning. He denies any chest pain or shortness of breath. OBJECTIVE: VITAL SIGNS: Blood pressure is 119/59, heart rate 70, respiratory rate 16, temperature 97.6, and pulse ox 93%. GENERAL: Noted to be awake, supine, comfortable, not in distress. SKIN: Adequate turgor. HEENT: Slightly pale conjunctivae. Anicteric sclerae. NECK: No neck mass. No carotid bruits. No JVD. CHEST: No deformities. LUNGS: Clear breath sounds. HEART: Normal sinus rhythm. No murmur. No gallops. No rubs. ABDOMEN: Globular, soft, and nontender. No masses. EXTREMITIES: No edema. No deformities. MEDICATIONS: Medications of February 16, 2019, was reviewed. LABORATORY DATA: Laboratories of February 16, 2019; white count 9.1, hemoglobin 8.7, and hematocrit 26.2. Sodium 144, potassium 4.4, chloride 117, carbon dioxide 19, BUN 54, creatinine 2.52, GFR 25 mL/minute, glucose 166, and calcium 8.2. ASSESSMENT AND PLAN: 1. Acute kidney injury on top of his chronic renal failure, superimposed prerenal azotemia, improving with optimization of his hemodynamics. The patient has received a blood transfusion. Continue current management. There is no indication for any dialytic intervention. 2. Gastric carcinoma - the patient undergoing radiation therapy. Oncology is following. 3. The patient has also received Taxol yesterday. 4. Anemia. Continue supportive care, p.r.n. blood transfusion. Recheck basic metabolic panel and CBC in a.m. Job ID: [id number]
--- NOTE | 2019-02-16 12:48 | PDOC.PN ---
- Subjective Encounter Start Date: 02/16/19 (f/u GI bleed) Encounter Start Time: 12:46 Subjective: Pt without complaints today, is s/p radiation. Stools remain dark -: and once daily. Denies any pain. - Objective Vital Signs & Weight: Vital Signs (12 hours) Temp Pulse Resp BP BP Pulse Ox 02/16/19 08:30 133/62 02/16/19 08:00 97.4 F L 72 18 133/62 99 02/16/19 04:38 97.6 F 70 16 119/59 L 93 L Weight Weight 206 lb 5.643 oz I&O: 02/15/19 02/16/19 02/17/19 06:59 06:59 06:59 Intake Total 1100 1550 1300 Output Total 2125 1500 1300 Balance -1025 50 0 Result Diagrams: 02/16/19 04:18 02/16/19 04:18 Phys Exam - Physical Examination Constitutional: NAD Respiratory: no wheezing, no rales, no rhonchi, clear to auscultation bilateral Cardiovascular: RRR, no significant murmur Gastrointestinal: soft, non-tender, no distention, positive bowel sounds unchanged - 1+ edema RLE Neurological: non-focal Psychiatric: normal affect Dx/Plan (1) GI bleed Code(s): K92.2 - GASTROINTESTINAL HEMORRHAGE, UNSPECIFIED Status: Acute (2) Adenocarcinoma Code(s): C80.1 - MALIGNANT (PRIMARY) NEOPLASM, UNSPECIFIED Status: Acute (3) DVT (deep venous thrombosis) Code(s): I82.409 - ACUTE EMBOLISM AND THOMBOS UNSP DEEP VN UNSP LOWER EXTREMITY Status: Acute (4) Systolic heart failure Code(s): I50.20 - UNSPECIFIED SYSTOLIC (CONGESTIVE) HEART FAILURE Status: Chronic Qualifiers: Heart failure chronicity: chronic Qualified Code(s): I50.22 - Chronic systolic (congestive) heart failure (5) Chronic kidney disease Code(s): N18.9 - CHRONIC KIDNEY DISEASE, UNSPECIFIED Status: Chronic Qualifiers: Chronic kidney disease stage: stage 3 (moderate) Qualified Code(s): N18.3 - Chronic kidney disease, stage 3 (moderate) (6) Chronic lung disease Code(s): J98.4 - OTHER DISORDERS OF LUNG Status: Chronic - Plan * * Pt with complicated picture of adenocarcinoma that is bleeding and not amenable to cautery, on eliquis for DVT prior to admission * Appreciate GI consult - endoscopy is not warranted. Need to address eliquis with regards to dosing and when to re-initiate * Appreciate Neprhology for CKD - monitor renal function * Appreciate Oncology recommendations - pt has received radiation yesterday/ today and chemo initiated yesterday * Hb up to 8.7 this morning - hold further transfusion * * Resume home lasix alternating 20 mg and 40 mg daily. d/c bid potassium - resume tomorrow based on potassium level. Today it is 4.4 * * pt recently had UTI/bacteremia and hospitalization - Estefani/RN contacted the med and pt was discharged with augmentin 875/125 -to continue through February 21 * * RLE edema chronic * * Pt not a candidate for scd's due to known clot. Full anticoagulation on hold. * gi prophy - oral protonix bid * * pt at high risk in current condition * reviewed plan of care with patient/, no questions or further needs at end of eval * discharge planning - clearance from Nephrology and Oncology
[2019-02-16] MEDS ORDERED: Furosemide 20 MG TAB PO SCH (13:00)
--- NOTE | 2019-02-16 14:08 | PRG ---
DATE OF SERVICE: 02/16/2019 SUBJECTIVE: Mr. De La Rosa had a single dark bowel movement yesterday, none so far today. He has remained hemodynamically stable. He got started on chemotherapy yesterday. Hemoglobin came up to 8.7 with 2 units RBC transfusion yesterday. He is otherwise feeling pretty good. No abdominal pain or nausea. He ate a good lunch. PHYSICAL EXAMINATION: VITAL SIGNS: Temperature 97.4, blood pressure 133/62, pulse 72, and 99% oxygen saturation on room air. GENERAL: No acute distress. HEART: Regular rate and rhythm. LUNGS: Clear to auscultation bilaterally. ABDOMEN: Soft, nontender to palpation. EXTREMITIES: No peripheral edema. LABORATORY DATA: Hemoglobin 8.7, WBC 9.1, and platelets 146. Sodium 144, potassium 4.4, BUN 54, and creatinine 2.52. ASSESSMENT/PLAN: 1. 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 2. Acute on chronic gastrointestinal bleeding from the adenocarcinoma of the gastroesophageal junction. 3. Deep venous thrombosis diagnosed in December 2018, on Eliquis. 4. Chronic renal insufficiency with solitary kidney. Hemoglobin came up nicely with transfusion yesterday. Agree with plan to trend H and H tomorrow. If stable, no contraindication to hospital discharge from a GI perspective. I again discussed with the patient that he is going to be at risk for recurrent bleeding from this GE junction adenocarcinoma during treatment, and there is really nothing we can do about this endoscopically. He should stay on twice daily PPI. If feasible from a cardiovascular perspective, consider reducing his dose of Eliquis perhaps to 2.5 mg twice daily, though I would still defer that decision to Dr. Scott and Dr. Pandya. No further recommendations from a GI perspective. Please call anytime with questions or concerns. Job ID: [id number]
[2019-02-16] MEDS: Atorvastatin Calcium 10 MG TAB PO SCH (21:01)
[2019-02-16] MEDS: Calcitriol 0.25 MCG CAP PO SCH (21:01)
[2019-02-16] MEDS: Acetaminophen 325 MG TAB PO PRN (22:47)
[2019-02-17 04:15] LABS: #Lymphocytes 0.2 thou/uL (1.20-3.40); #Monocytes 0.2 thou/uL (0.11-0.59); #Neutrophils 8.3 thou/uL (1.40-6.50); %Eosinophils 0.1 % (0.0-10.0); %Monocytes 2.7 % (0.0-10.0); %Neutrophils 95.2 % (42.0-75.0); Hemoglobin 8.3 g/dL (14.0-18.0); Mean Corpuscular HGB CONC 32.9 g/dL (32.0-36.0); Mean Corpuscular Hemoglobin 32.2 pg (27.0-31.0); Mean Corpuscular Volume 97.8 fL (78.0-98.0); Mean Platelet Volume 8.7 fL (7.4-10.4); Platelet Count 144 thou/uL (130-400); RBC Distribution Width 17.3 % (11.5-14.5); Red Blood Cell (RBC) Count 2.59 mill/uL (4.70-6.10); White Blood Cell (WBC) Count 8.7 thou/uL (4.8-10.8)
[2019-02-17 04:37] LABS: Anion Gap 12 mmol/L (10-20); BUN (Urea Nitrogen) 53 mg/dL (8.4-25.7); Calc. Creatinine Clearance 36 mL/min (70-130); Calcium 7.9 mg/dL (7.8-10.44); Carbon Dioxide 17 mmol/L (23-31); Chloride 116 mmol/L (98-107); Estimated GFR-MDRD 27; Glucose 127 mg/dL (83-110); Potassium 4.3 mmol/L (3.5-5.1); Sodium 141 mmol/L (136-145)
[2019-02-17 07:12] VITALS: TEMP 97.7
[2019-02-17] MEDS: Mometasone/Formoterol 120 PUFF INHALER INH SCH (08:18)
[2019-02-17] MEDS: Amoxicillin/Potassium Clav 875 MG TAB PO SCH (08:30)
[2019-02-17] MEDS: Carvedilol 6.25 MG TAB PO SCH (08:30)
[2019-02-17] MEDS: Amiodarone 200 MG TAB PO SCH (08:30)
[2019-02-17] MEDS: Loratadine 10 MG TAB PO SCH (08:31)
[2019-02-17 08:32] VITALS: BP 133/62
[2019-02-17] MEDS: Fluticasone Propionate Nasal Spray 16 gm Bottle NASAL SCH (08:39)
--- NOTE | 2019-02-17 08:56 | PRG ---
DATE OF SERVICE: SUBJECTIVE: Mr. De La Rosa is a 73-year-old white male, who was seen by the Renal Service for his acute kidney injury on top of his chronic renal failure. He had a superimposed hemodynamically-mediated renal dysfunction. He was initially admitted due to symptomatic anemia. He also had recent diagnosis of gastric carcinoma. He is undergoing chemotherapy as well as radiation. His renal function is much improved. He is feeling better. He has received 2 units of packed RBC. He voices no new complaints. OBJECTIVE: VITAL SIGNS: Blood pressure is noted at 133/63, heart rate 72, respiratory rate 18, temperature 97.7, and pulse ox 94%. GENERAL: Noted to be awake, alert, comfortable, not in distress. SKIN: Adequate turgor. HEENT: He has pinkish conjunctivae. Anicteric sclerae. NECK: No neck mass. No carotid bruits. No JVD. CHEST: No deformities. LUNGS: Clear breath sounds. No wheezing. No crackles. HEART: Normal sinus rhythm. No murmur. No gallops or rubs. ABDOMEN: Globular, soft, and nontender. No masses. EXTREMITIES: No edema. No deformities. MEDICATIONS: Medications of February 15, 2019, were reviewed. LABORATORY DATA: Laboratories of February 17, 2019, white count 8.7, hemoglobin 8.3. Sodium 141, potassium 4.3, chloride 106, carbon dioxide 17, BUN 53, creatinine 2.4, GFR 27 mL/min, and calcium 7.9. ASSESSMENT AND PLAN: 1. Acute kidney injury on top of his chronic renal failure, superimposed prerenal azotemia, much improved with volume repletion and optimization of his hemodynamics. He has received a total of 4 units of packed RBC during this hospitalization. 2. Gastric carcinoma, on chemotherapy and radiation therapy. 3. Symptomatic anemia, on p.r.n. blood transfusion. 4. Agree with plan discharge. We will follow this patient up at the [facility]. Job ID: [id number]
[2019-02-17] MEDS ORDERED: Furosemide 40 MG TAB PO SCH (09:00)
--- NOTE | 2019-02-17 11:56 | DIS ---
DATE OF ADMISSION: 02/14/2019 DATE OF DISCHARGE: 02/17/2019 CONSULTANTS: 1. Nephrology, Dr. Brody. 2. GI, Dr. Patricia. 3. Oncology, Dr. Pandya. 4. Nurse Practitioner, Migdalia Betts. PROCEDURES PERFORMED: 1. Radiation therapy. 2. Chemotherapy initiated on February 16. 3. Transfusion of a total of 4 units of packed red blood. MEDICATIONS: Reconciled at discharge. Discontinued medications: Eliquis is discontinued for now, to be discussed with both Dr. Pandya and Dr. Scott in the outpatient setting. Medications to continue; 1. Amiodarone 200 mg daily. 2. Augmentin 1 tablet each day twice daily. This will be through the second dose on February 21. 3. Vitamin C 500 mg daily. 4. Probiotic daily. 5. Calcitriol 0.25 mcg in the evening. 6. Carvedilol 6.25 mg b.i.d. 7. Cetirizine 10 mg daily. 8. Vitamin B12 of 250 mcg daily. 9. Advair 1 inhalation daily. 10. Folic acid 0.4 mg daily. 11. Furosemide 40 mg. The patient alternates 40 and 20 mg daily. 12. Multivitamin daily. 13. Lovaza one capsule daily of the 1 g. 14. Pantoprazole 40 mg b.i.d. 15. Potassium chloride 10 mEq 2 tablets daily. 16. Simvastatin 20 mg at bedtime. 17. Nasacort 1 spray each nostril daily. 18. Vitamin B6 two tablets daily. FINAL DIAGNOSES: 1. Acute symptomatic anemia secondary to acute blood loss from a bleeding gastroesophageal junction tumor. 2. Secondary to a gastroesophageal junction adenocarcinoma, now status post one round of chemotherapy and radiation therapy. 3. Left lower extremity deep venous thrombosis, was on full-dose anticoagulation , which is now on hold. 4. Chronic kidney disease, stage 4. SECONDARY DIAGNOSES: 1. Recent urinary tract infection and reported bacteremia. 2. Chronic systolic congestive heart failure. 3. Osteoarthritis. 4. Chronic lung disease. 5. History of dilated cardiomyopathy with ejection fraction of 30%. 6. History of bladder cancer. HISTORY OF PRESENT ILLNESS: Mr. De La Rosa is a 73-year-old male with the above medical problems, who was having melena and referred to the outpatient clinic for further evaluation. He was diagnosed with a GE junctional tumor and found to be oozing mass that was not amenable to cauterization. He was initiated on radiation therapy, continued to have melena, was transfused over at [facility] and discharged. He returns to the emergency room with a complaint of severe generalized weakness and shortness of breath with persistent melena. He was found to have a hemoglobin on admission of 6.5 and was admitted for transfusion and further evaluation. HOSPITAL COURSE: 1. Anemia. The patient has been transfused a total of 4 units of packed red blood cells and his hemoglobin has increased to 8.3 on day of discharge, it was 8.7 yesterday. He continues to have melena, but states that it has slowed down. His Eliquis has been held from the time of admission and will continue to be held until followup with both Dr. Pandya in the outpatient setting and Dr. Scott his supervisor hydrochloric area. 2. Chronic kidney disease. This has been stable and slightly improved during this admission. His creatinine has ranged from 2.4 to 2.87, and is 2.[address] on [address] of discharge[address] Dr. Brody has been following here. The patient has been diuresed with IV Lasix and tolerated that well with blood transfusions. Otherwise, he has been kept on his usual oral Lasix dose. 3. History of bacteremia and urinary tract infection. The patient is kept on Augmentin that he was discharged from the outside hospital with a stop date of February 21. 4. GE junction adenocarcinoma. The patient was started on chemotherapy by Oncology here, and has participated and has received radiation therapy. He will follow up with a blood count in 2 days at the [facility] as well as with an appointment with Dr. Pandya on Friday and continue radiation therapy as scheduled. The patient is overall feeling well and does meet criteria for discharge to home. PHYSICAL EXAMINATION: VITAL SIGNS: Blood pressure 133/63, temperature 97.7, pulse 72, respirations 18 , sats 94% on room air. GENERAL: Awake, alert, responsive, in no apparent distress. Able to speak in full sentences. LUNGS: Clear to auscultation bilateral. No audible wheezing, rhonchi, or rales. HEART: Normal S1 and S2. Regular rate and rhythm. No significant murmur. ABDOMEN: Soft with present bowel sounds. EXTREMITIES: He has had chronic right lower extremity edema unchanged and no edema of the left lower extremity. SANDRA FINDING AND TEST RESULTS: CBC today ; WBC 8.7, hemoglobin 6.3, hematocrit 25.3, and platelets 144. On admission, hemoglobin was 6.5, following 2 units of blood, it was up to 10, the following day, it was down to 6.8. Yesterday after an additional 2 units, his hemoglobin was 8.7 and today it is at 8.3. INR 1.6 on admission. D-dimer 0.34. Renal panel today; sodium 141, potassium 4.3, chloride 116, bicarbonate 17, BUN 53, creatinine 2.4, and glucose 127 with a calcium of 7.9. T-bili 0.4, AST 19, ALT 28, alkaline phosphatase 52, total protein 5.8, and albumin 3.2. Urinalysis was normal. Stool occult blood was positive. Chest x-ray on 02/13 shows atherosclerosis, no acute cardiopulmonary process, emphysema predominantly involving both upper lobes. DIET: Fiber restricted. ACTIVITY: As tolerated. FOLLOWUP: 1. Follow up at the Cancer Center in 2 days for repeat blood count, and on February [address] Pandya at 1:15 p.m. 2. Follow up with Dr. Hankins as scheduled for radiation therapy. 3. Follow up with Dr. Scott to further discuss the Eliquis and dosing. 4. Follow up with Dr. Brody for ongoing monitoring of the kidneys. CODE STATUS: Full. DISCHARGE DISPOSITION: To home. Reviewed with the patient this hospitalization, the importance of followup and to seek care precautions. No questions or further needs at the end of evaluation. TIME SPENT: Total time coordinating discharge is 35 minutes. Job ID: [id number] MTDD
[2019-02-18] MEDS ORDERED: Furosemide 20 MG TAB PO SCH (09:00)
== END 2019-02-17 10:30 | disposition home or self-care (01) | DRG 375 ==
LOC: ERS 18:07 → ONC 02-14
PROVIDERS: ADMIT Family Medicine; ATTEND Family Medicine
PROC: 3E03305 Introduction of Other Antineoplastic into Peripheral Vein, Percutaneous Approach (ICD-10-PCS; principal; 2019-02-14)
PROC: 30233N1 Transfusion of Nonautologous Red Blood Cells into Peripheral Vein, Percutaneous Approach (ICD-10-PCS; 2019-02-14)
DX: C78.89 Secondary malignant neoplasm of other digestive organs (principal); I13.0 Hypertensive heart and chronic kidney disease with heart failure and stage 1 through stage 4 chronic kidney disease, or unspecified chronic kidney disease; I50.22 Chronic systolic (congestive) heart failure; D62 Acute posthemorrhagic anemia; I42.0 Dilated cardiomyopathy; K92.2 Gastrointestinal hemorrhage, unspecified; N17.9 Acute kidney failure, unspecified; N18.4 Chronic kidney disease, stage 4 (severe); D72.829 Elevated white blood cell count, unspecified; D63.0 Anemia in neoplastic disease; M19.90 Unspecified osteoarthritis, unspecified site; J98.4 Other disorders of lung; Z95.0 Presence of cardiac pacemaker; Z86.718 Personal history of other venous thrombosis and embolism; Z79.01 Long term (current) use of anticoagulants; Z85.51 Personal history of malignant neoplasm of bladder; Z88.0 Allergy status to penicillin; Z88.1 Allergy status to other antibiotic agents; Z88.2 Allergy status to sulfonamides; Z91.040 Latex allergy status; Z79.82 Long term (current) use of aspirin; Z79.899 Other long term (current) drug therapy; Z95.810 Presence of automatic (implantable) cardiac defibrillator
CPT/HCPCS: 36415; 36430; 71045; 77336; 77385; 77386; 77417; 80048; 80053; 81003; 82274; 82550; 83690; 84484; 85025; 85379; 85610; 85730; 86850; 86900; 86901; 93005; 94760; 96365; 96376; C9113; J1100; J1940; J2405; J3490; J7050; J9045; J9267; P9016

== ENCOUNTER 2019-02-26 10:35 | Outpatient (CLI) | payer MEDICARE, OTHER ==
[2019-02-26 13:17] LABS: #Eosinphils 0.1 thou/uL (0.0-0.7); #Lymphocytes 0.1 thou/uL (1.20-3.40); #Monocytes 0.1 thou/uL (0.11-0.59); #Neutrophils 2.5 thou/uL (1.40-6.50); %Basophils 0.5 % (0.0-1.0); %Eosinophils 3.8 % (0.0-10.0); %Lymphocytes 3.3 % (21.0-51.0); %Monocytes 3.4 % (0.0-10.0); %Neutrophils 88.9 % (42.0-75.0); Hemoglobin 8.9 g/dL (14.0-18.0); Mean Corpuscular HGB CONC 32.1 g/dL (32.0-36.0); Mean Corpuscular Hemoglobin 32.2 pg (27.0-31.0); Mean Platelet Volume 8.3 fL (7.4-10.4); Platelet Count 121 thou/uL (130-400); RBC Distribution Width 16.9 % (11.5-14.5); Red Blood Cell (RBC) Count 2.76 mill/uL (4.70-6.10); White Blood Cell (WBC) Count 2.8 thou/uL (4.8-10.8)
[2019-02-26 13:33] LABS: Anion Gap 12 mmol/L (10-20); BUN (Urea Nitrogen) 34 mg/dL (8.4-25.7); Calc. Creatinine Clearance 0 mL/min (70-130); Calcium 8.4 mg/dL (7.8-10.44); Carbon Dioxide 18 mmol/L (23-31); Chloride 119 mmol/L (98-107); Estimated GFR-MDRD 25; Glucose 136 mg/dL (83-110); Potassium 4.4 mmol/L (3.5-5.1); Sodium 145 mmol/L (136-145)
--- NOTE | 2019-03-01 16:57 | EKG ---
Test Reason : Blood Pressure : / mmHG Vent. Rate : 070 BPM Atrial Rate : 070 BPM P-R Int : 220 ms QRS Dur : 158 ms QT Int : 440 ms P-R-T Axes : 000 016 -33 degrees QTc Int : 475 ms Electronic atrial pacemaker Left bundle branch block Abnormal ECG Confirmed by GEORGE LLOYD ([id number]) on 03/01/2019 4:57:04 PM Referred By: STEMI Confirmed By:GEORGE LLOYD
== END 2019-02-26 10:36 | disposition home or self-care (01) ==
LOC: LABBT 10:35
PROVIDERS: ATTEND Specialist
DX: Z01.818 Encounter for other preprocedural examination (principal); C15.9 Malignant neoplasm of esophagus, unspecified
CPT/HCPCS: 80048; 85025; 93005; 93010

== ENCOUNTER 2019-03-01 08:17 | Day surgery (SDC) | payer MEDICARE, OTHER ==
[2019-02-26 12:22] VITALS: BMI 31.6
[2019-03-01] MEDS ORDERED: Ketorolac Tromethamine 30 MG/ML VIAL ONE (09:02)
[2019-03-01] MEDS ORDERED: Bupivacaine/Epinephrine 0.25% 30 ML VIAL ONE (10:24)
[2019-03-01] MEDS ORDERED: Lidocaine 1% (PF) 30 ML VIAL ONE (10:24)
[2019-03-01] MEDS ORDERED: Fentanyl 100 MCG/2 ML VIAL ONE (10:45)
[2019-03-01] MEDS ORDERED: Midazolam HCl 2 mg/2 ml Vial ONE (10:45)
--- NOTE | 2019-03-01 13:14 | RAD ---
CHEST 1 VIEW: HISTORY: MediPort placement. COMPARISON: A 02/13/2019 study. FINDINGS: Heart size is enlarged with a pacemaker. Severe emphysematous lung changes are seen. Right-sided Me diPort catheter has been placed. I do not see any definite signs of a pneumothorax. IMPRESSION: No evidence of pneumothorax post pacemaker placement. POS: [facility]
[2019-03-01] MEDS ORDERED: PROPOFOL 200 MG/20 ML VIAL ONE (16:13)
[2019-03-01] MEDS ORDERED: PHENYLEPHRINE-NS 100 MCG/ML 10 ML SYRINGE ONE (16:13)
--- NOTE | 2019-03-02 01:23 | OP ---
DATE OF PROCEDURE: 03/01/2019 PREOPERATIVE DIAGNOSIS: Distal esophageal cancer. POSTOPERATIVE DIAGNOSIS: Distal esophageal cancer. OPERATION PERFORMED: Placement of right subclavian standard-sized power compatible MediPort. ANESTHESIA: Total intravenous anesthesia with local using 0.25% Marcaine with epinephrine. INDICATIONS FOR PROCEDURE: The patient is a 73-year-old white male. He presents with a recent diagnosis of distal esophageal cancer. He has had a previous right chest wall MediPort from a previous malignancy. He also has a defibrillator placed in his left upper chest. He is taken to the operating room at this time for placement of a new MediPort for chemotherapy administration. Plan is for him to receive chemotherapy later today. DESCRIPTION OF OPERATION: Informed consent was obtained. The patient was taken to the operating room where total intravenous anesthesia was obtained with the patient in supine position. Right periclavicular area was prepped with ChloraPrep and draped in sterile fashion. Local anesthetic was infiltrated and a large-gauge needle was passed under the clavicle in the subclavian vein. Guidewire was passed through the needle and fluoroscopically confirmed to enter the superior vena cava. Additional local anesthetic was infiltrated and transverse incision was created based on needle insertion site. A subcutaneous pocket was dissected inferiorly. Introducer dilator was passed over the guidewire under fluoroscopic guidance. The guidewire and dilator were removed, and the catheter was passed through the introducer. The tip of the catheter was positioned at the atriocaval junction and the catheter was trimmed to the appropriate length and secured to the locking hub of the MediPort. The port was then placed in the subcutaneous pocket where it was secured to the pectoral fascia with 2 interrupted sutures of 3-0 Prolene. The incision was then closed in layers with 3-0 and 4-0 Monocryl. Additional local anesthetic was infiltrated. The port was cannulated with a Taveras needle and it aspirated blood freely and was flushed with heparinized saline. Dermabond was placed externally on the skin incision. There were no complications. Blood loss was negligible. The patient tolerated the procedure well and was taken to recovery room in stable condition. FINDINGS: I chose a standard-size power compatible MediPort and placed this uneventfully in the right subclavian location. There was some minor scar tissue in the subcutaneous tissue that was of no problem during the procedure. Upon completion of the procedure, the port was accessed and flushed, and the access needle was left in place. It was covered with a sterile occlusive dressing. The patient tolerated the procedure well and was to go to the Cancer Center to receive chemotherapy following his recuperation. Job ID: [id number]
== END 2019-03-01 13:22 | disposition home or self-care (01) ==
LOC: SDC 08:17
PROVIDERS: ATTEND Specialist
PROC: 05H533Z Insertion of Infusion Device into Right Subclavian Vein, Percutaneous Approach (ICD-10-PCS; principal; 2019-03-01)
DX: C15.5 Malignant neoplasm of lower third of esophagus (principal); I25.10 Atherosclerotic heart disease of native coronary artery without angina pectoris; D64.9 Anemia, unspecified; Z87.891 Personal history of nicotine dependence; Z91.048 Other nonmedicinal substance allergy status; Z88.1 Allergy status to other antibiotic agents; Z91.040 Latex allergy status; Z88.2 Allergy status to sulfonamides; Z88.0 Allergy status to penicillin; Z88.8 Allergy status to other drugs, medicaments and biological substances; Z79.82 Long term (current) use of aspirin; Z79.01 Long term (current) use of anticoagulants; Z79.51 Long term (current) use of inhaled steroids; Z79.899 Other long term (current) drug therapy
CPT/HCPCS: 71045; 77386; C1788; J0131; J0690; J1642; J1885; J2001; J2250; J2704; J3010

== ENCOUNTER 2019-03-08 16:28 | Day surgery (SDC) | payer MEDICARE, OTHER ==
[2019-03-08] MEDS ORDERED: Acetaminophen 500 MG TAB PO SCH (16:45)
[2019-03-08] MEDS ORDERED: diphenhydrAMINE 25 MG CAP PO SCH (17:00)
[2019-03-08] MEDS ORDERED: Simvastatin 20 MG TAB PO SCH (21:00)
[2019-03-08] MEDS ORDERED: Calcitriol 0.25 MCG CAP PO SCH (21:00)
[2019-03-08] MEDS: Carvedilol 6.25 MG TAB PO SCH (21:28)
[2019-03-09 00:59] LABS: Hemoglobin 8.4 g/dL (14.0-18.0); Mean Corpuscular HGB CONC 32.9 g/dL (32.0-36.0); Mean Corpuscular Hemoglobin 31.6 pg (27.0-31.0); Mean Corpuscular Volume 96.1 fL (78.0-98.0); RBC Distribution Width 16.9 % (11.5-14.5); Red Blood Cell (RBC) Count 2.64 mill/uL (4.70-6.10); White Blood Cell (WBC) Count 1.8 thou/uL (4.8-10.8)
[2019-03-09 01:13] LABS: #Lymphocytes 0.1 thou/uL (1.20-3.40); #Monocytes 0.1 thou/uL (0.11-0.59); #Neutrophils 1.7 thou/uL (1.40-6.50); %Eosinophils 0.2 % (0.0-10.0); %Lymphocytes 7.3 % (21.0-51.0); %Monocytes 2.9 % (0.0-10.0); %Neutrophils 89.6 % (42.0-75.0); Mean Platelet Volume 9.1 fL (7.4-10.4); Platelet Count 54 thou/uL (130-400); Platelet Morphology Comment Appears Decreased
[2019-03-09] MEDS ORDERED: Mometasone/Formoterol 120 PUFF INHALER INH SCH (07:00)
[2019-03-09] MEDS ORDERED: Potassium Chloride 10 MEQ TAB PO SCH ×2 (08:00→09:00)
[2019-03-09 08:23] VITALS: BP 117/57; TEMP 97.9
[2019-03-09] MEDS: Carvedilol 6.25 MG TAB PO SCH (08:26)
[2019-03-09] MEDS ORDERED: Amiodarone 200 MG TAB PO SCH (09:00)
[2019-03-09] MEDS ORDERED: Multivit, Therapeutic 1 TAB PO SCH (09:00)
[2019-03-09] MEDS ORDERED: Ascorbic Acid 500 mg Chewable Tablet PO SCH (09:00)
[2019-03-09] MEDS ORDERED: Furosemide 40 MG TAB PO SCH (09:00)
== END 2019-03-09 10:17 | disposition home or self-care (01) ==
LOC: ONC/OP 16:28 → ONC 16:29 → ONC/OP 03-09 10:17
PROVIDERS: ATTEND Internal Medicine Hematology & Oncology
PROC: 30233N1 Transfusion of Nonautologous Red Blood Cells into Peripheral Vein, Percutaneous Approach (ICD-10-PCS; principal; 2019-03-08)
DX: D64.9 Anemia, unspecified (principal); D69.6 Thrombocytopenia, unspecified; Z91.048 Other nonmedicinal substance allergy status; Z88.1 Allergy status to other antibiotic agents; Z88.0 Allergy status to penicillin; Z88.5 Allergy status to narcotic agent; Z88.2 Allergy status to sulfonamides; Z91.040 Latex allergy status; Z88.8 Allergy status to other drugs, medicaments and biological substances
CPT/HCPCS: 36430; 86850; 86900; 86901; P9016; Q0163

== ENCOUNTER 2019-03-13 02:01 | Inpatient (IN) | payer MEDICARE, OTHER ==
[2019-03-13] MEDS ORDERED: Piperacillin/Tazobactam 3.375 GM in Sodium Chloride 0.9% 100 ML IVPB SCH (06:00)
[2019-03-13] MEDS ORDERED: Ondansetron ODT 4 MG TAB SL PRN (06:10)
[2019-03-13] MEDS ORDERED: Ondansetron PF 4 MG/2 ML Vial IVP PRN ×2 (06:10→09:36)
[2019-03-13 08:21] VITALS: BMI 29.2
[2019-03-13] MEDS ORDERED: Ondansetron ODT 4 MG TAB PO PRN (09:36)
[2019-03-13] MEDS ORDERED: cloNIDine 0.1 MG TAB PO PRN (09:36)
[2019-03-13] MEDS ORDERED: hydrALAZINE 20 MG/ML VIAL SLOW IVP PRN (09:36)
[2019-03-13 10:05] LABS: #Lymphocytes 0.1 thou/uL (1.20-3.40); #Monocytes 0.1 thou/uL (0.11-0.59); #Neutrophils 0.9 thou/uL (1.40-6.50); %Eosinophils 0.8 % (0.0-10.0); %Lymphocytes 6.8 % (21.0-51.0); %Neutrophils 85.3 % (42.0-75.0); Hemoglobin 8.2 g/dL (14.0-18.0); Mean Corpuscular HGB CONC 35.1 g/dL (32.0-36.0); Mean Corpuscular Hemoglobin 33.5 pg (27.0-31.0); Mean Corpuscular Volume 95.5 fL (78.0-98.0); Mean Platelet Volume 9.2 fL (7.4-10.4); Platelet Count 38 thou/uL (130-400); RBC Distribution Width 17.1 % (11.5-14.5); Red Blood Cell (RBC) Count 2.44 mill/uL (4.70-6.10)
[2019-03-13 10:20] LABS: Anion Gap 12 mmol/L (10-20); BUN (Urea Nitrogen) 34 mg/dL (8.4-25.7); Calc. Creatinine Clearance 31 mL/min (70-130); Calcium 8.7 mg/dL (7.8-10.44); Carbon Dioxide 20 mmol/L (23-31); Chloride 112 mmol/L (98-107); Estimated GFR-MDRD 24; Glucose 113 mg/dL (83-110); Potassium 4.9 mmol/L (3.5-5.1); Sodium 139 mmol/L (136-145)
--- NOTE | 2019-03-13 11:19 | HP ---
PRIMARY CARE PHYSICIAN: Ellis Espinal MD. ONCOLOGIST: Marcelino Pandya MD UROLOGIST: Glen Garcia MD. CHIEF COMPLAINT: Fever last night. HISTORY OF PRESENT ILLNESS: Mr. De La Rosa is a 73-year-old gentleman, who has a history of bladder cancer and he is status post bladder resection with an ileal conduit. He also has a history of chronic systolic heart failure. He was in his usual state of health until yesterday when he started having some fever. He also says he has been coughing and spitting up some green yellow mucus. He attributes this, however, to some dysphagia that he has when he has as a result of his radiation treatment. He is undergoing chemotherapy and radiation for the bladder cancer and his last chemotherapy was last Friday. Last radiation treatment was yesterday. He says after having the temperature, he came to the ER and was found to be pancytopenic and also had urine suggestive of urinary tract infection and he is being admitted. He has an ileal conduit and has to do self-catheterization. He says that he did see Dr. Garcia a couple of days ago. At that time, the urine appeared somewhat cloudy and he admits that it was sent off for culture. The patient also notes some dysphagia, he attributes to his cancer, and says that he has lost 10 to 14 pounds. He denies any coughing up any blood or hematemesis, and denies any blood in the stool and other than the urine being cloudy the other day, the urine color has been overall essentially clear. No blood in it. REVIEW OF SYSTEMS: CONSTITUTIONAL: He has subjective fever, but no chills. No night sweats. He has had about 10 to 15-pound weight loss. HEENT: No headaches. No dizziness. No visual changes. No sore throat. No rhinorrhea. No neck pain. No adenopathy. CARDIOVASCULAR: He denies any chest pain. No shortness of breath. No PND. No orthopnea. GASTROINTESTINAL: No abdominal pain. No nausea. No vomiting. No change in bowels. GENITOURINARY: As the history of present illness. MUSCULOSKELETAL: He admits to chronic swelling in the right leg, he says ever since he has had his surgery for his bladder. No calf tenderness. No joint problems. NEUROLOGIC: There has been no focal weakness. No numbness. No seizures. PSYCHIATRIC: No symptoms of anxiety or depression. SKIN AND INTEGUMENT: No skin changes. No rash. PAST MEDICAL HISTORY: Significant for bladder cancer, chronic systolic heart failure, osteoarthritis, chronic lung disease, chronic kidney disease stage 4, and history of DVT of the left leg, but he is no longer on Eliquis due to GI bleed. PAST SURGICAL HISTORY: He has had a defibrillator placed. He is status post bladder resection and ileal conduit, right nephrectomy, right-sided stoma, bladder removal. ALLERGIES: BACTRIM, CODEINE, ERYTHROMYCIN, LATEX, LEVAQUIN, AND NEOMYCIN. FAMILY HISTORY: Significant for brother and father, who had coronary artery disease, but no history of GI malignancy. SOCIAL HISTORY: He is a full code. He is . 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 He is a former smoker, he quit in 1992. Denies any alcohol use. MEDICATIONS: Include, 1. Amiodarone 200 mg daily. 2. Vitamin C 500 mg daily. 3. Calcitriol 0.25 mcg daily. 4. Carvedilol 6.25 mg twice daily. 5. Zyrtec 10 mg daily. 6. Lasix 40 mg daily. 7. Potassium chloride 20 mEq daily. 8. Simvastatin 20 mg at bedtime. PHYSICAL EXAMINATION: GENERAL: He is alert and oriented. He appears to be in no acute distress. VITAL SIGNS: Blood pressure is 114/60, heart rate is 71, respiratory rate of 18, temperature is 98.6, and O2 saturation is 94% on room air. HEENT: Pupils are equal, round, and reactive to light. Extraocular muscles are intact. Sclerae anicteric. Throat, there is no erythema, no exudates. NECK: No adenopathy. No bruits. LUNGS: Clear to auscultation. There is no wheezing, no rales, no rhonchi. CARDIOVASCULAR: He has a normal S1 and S2. There is no S3 or S4. No murmurs, clicks, or rubs. ABDOMEN: Obese. It is soft. It is nontender and nondistended. Positive for bowel sounds. No rebound. No guarding. No organomegaly. EXTREMITIES: There is no calf tenderness. No joint effusions. NEUROLOGIC: Muscle strength is 5/5 in both his upper and lower extremities. SKIN AND INTEGUMENT: No significant skin changes. No rash. The right lower extremity does have 2+ pitting edema. LABORATORY RESULTS: Done yesterday, the white blood cell count is 1.1, hemoglobin is 8.6, hematocrit is 24.9, and platelet count is 47. INR is 1.1. Sodium is 139, potassium is 5.3, chloride is 112, CO2 is 16, BUN of 35, creatinine 2.65, glucose is 116. Urinalysis showed it is cloudy, yellow, positive nitrites, and leukocyte esterase is greater than 50. ASSESSMENT: This is a 73-year-old gentleman, who presents to the emergency room with a urinary tract infection, who is also pancytopenic and febrile. This is in the setting of previous bladder surgery and instrumentation. 1. Neutropenic fever due to a complicated urinary tract infection. We will continue Zosyn for a gram-negative coverage as this is the most likely type of organism present. Await urine culture results. We will hold off on any IV fluids given his history of congestive heart failure and consult his urologist for further recommendations. 2. Neutropenia in the setting of pancytopenia, likely due to chemotherapy. Dr. Loyola has been consulted. We will see if he is a candidate for any bone marrow stimulation for his white blood cell count. 3. Chronic systolic heart failure. We will continue his usual home medications, and clinically, he appears to be compensated. 4. He will be placed on deep vein thrombosis and gastrointestinal prophylaxis. Job ID: [id number]
--- NOTE | 2019-03-13 11:29 | CON ---
DATE OF CONSULTATION: REASON FOR CONSULTATION: Febrile neutropenia. HISTORY OF PRESENT ILLNESS: A 73-year-old male with EG junction adenocarcinoma, currently on chemotherapy and radiation started February 15, and last radiation done yesterday and last chemotherapy on Friday, 03/08, with carboplatin and Taxol, and white blood cell count at that point was 2.8 and is currently 1.1. The patient was evaluated by Dr. Hankins on and was found to have cloudy urine, so he went over to Dr. Garcia's office and had a urinalysis done, which was not conclusive for UTI and so was sent for culture. Last night, the patient was noted to have a fever of 101.4 at home, and so he went to the [facility] for evaluation. At the [facility], his white blood cells were 1.1, platelets 47, and he was mildly hyperkalemic with a potassium of 5.3, and so he was transferred to [facility] for admission. The patient has been started on Zosyn and since fever last night, has been afebrile, though he did receive 2 Tylenol's at that time. Chest x-ray reportedly showed no pneumonia at the [facility]. The patient denies any nausea, vomiting, diarrhea, or chills. REVIEW OF SYSTEMS: Ten-point review of systems negative, except as per HPI. PAST MEDICAL HISTORY: Bladder cancer, esophageal cancer, atrial fibrillation, pacemaker placed in 2007. PAST SURGICAL HISTORY: Cystoprostatectomy in 1999, nephrostomy tube in 2000, right nephrectomy in 2003, pacemaker/defibrillator in 2007, cardiac ablation in 2011 and 2012. SOCIAL HISTORY: Former smoker and a social alcohol drinker, and currently retired, not working. ALLERGIES: ERYTHROMYCIN, LEVAQUIN, NEOSPORIN, PENICILLINS, PHENERGAN, AND SULFA ANTIBIOTICS. CURRENT MEDICATIONS: Reviewed by me. PHYSICAL EXAMINATION: VITAL SIGNS: Temperature 98.6, pulse 71, respirations 18, saturating 94% on room air, blood pressure 114/60. GENERAL: The patient is lying in bed, in no acute distress. HEENT: Normocephalic and atraumatic. NECK: Supple. LUNGS: Clear to auscultation without wheezes, rales, or rhonchi. CARDIOVASCULAR: Regular rhythm. Regular S1, S2. No murmurs, rubs, or gallops are noted. ABDOMEN: Soft, nondistended, and nontender. There is no suprapubic tenderness. The patient does have an artificial bladder. EXTREMITIES: There is no edema. SKIN: No rashes or ecchymoses. NEUROLOGIC: Cranial nerves 2 through 12 are grossly intact and otherwise nonfocal. PSYCHIATRIC: The patient is awake, alert, and oriented x3. LABORATORY DATA: White blood cells are 1.8 on March 09, currently 1.1 at the [facility]. Hemoglobin was 8.4 on March 09 and platelets 54. At the [facility], his platelet count was 47. Urinalysis culture is currently pending. 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 The patient's last chemotherapy dose was on Friday and last radiation on Friday. The patient's current white blood cell count is 1.1, and had fever up to 101.4 last night. No further febrile episodes. We will continue Zosyn at this time and follow up urine cultures. Would not start Neupogen at this time as he is on radiation and this combination can cause profound thrombocytopenia. The patient is currently stable, and hopefully, his white blood cells will trend up over the next 48 hours if he remains afebrile and go home on oral antibiotics at that time. Job ID: [id number]
[2019-03-13] MEDS ORDERED: Amiodarone 200 MG TAB PO SCH (12:45)
[2019-03-13] MEDS ORDERED: Carvedilol 6.25 MG TAB PO SCH (12:45)
--- NOTE | 2019-03-13 13:57 | CON ---
DATE OF CONSULTATION: 03/13/2019 CHIEF COMPLAINT: Fever, lethargy, and weakness. REASON FOR CONSULTATION: Urinary tract infection, complicated. HISTORY OF PRESENT ILLNESS: Mr. De La Rosa is a 73-year-old man with a significant prior urologic history of advanced bladder cancer requiring cystoprostatectomy with [place] pouch urinary diversion. He has also had a right nephrectomy. Recently, he noted cloudy urine and increased mucus in his urine. He does self catheterization 4 to 6 times per day. A urine culture was sent by Dr. Garcia, who is his current urologist. Urine culture has grown Klebsiella. He presented to the [facility] complaining of fever, weakness, and lethargy. He is noted to be neutropenic as he is currently receiving chemotherapy for a gastric cancer. He was transferred to [facility] in [place] for further treatment. His urologic history is significant for advanced bladder cancer, status post cystoprostatectomy in January 2000. He received chemotherapy, but then noticed to have a recurrence and received chemotherapy again a year later. Again, recurrence was noted and eventually required right nephrectomy in 2003. More recently, he has been diagnosed with a gastric tumor. This diagnosis was made when he was undergoing workup for anemia and endoscopy demonstrated a gastric tumor. He is currently receiving chemo and radiation therapy for his gastric tumor. He has chronic renal insufficiency and current renal function is baseline. PAST MEDICAL HISTORY: Congestive heart failure, atrial fibrillation, gastric cancer recently diagnosed, hyperlipidemia, hypertension, and bladder cancer. PAST SURGICAL HISTORY: Cystoprostatectomy with [place] pouch urinary diversion in 01/2000, right nephrectomy in 2003, cardiac ablation, and pacemaker placement. SOCIAL HISTORY: Lives with his . He is a nonsmoker. Denies alcohol use. HOME MEDICATIONS: Please see chart, but chronic medications at home include; 1. Carvedilol. 2. Lasix. 3. Advair Diskus. 4. Amiodarone. 5. Pantoprazole. 6. Simvastatin. ALLERGIES: HE HAS A LONG LIST OF ALLERGIES TO ERYTHROMYCIN, BACTRIM, LEVAQUIN, NEOMYCIN, PENICILLIN, POLYMYXIN B, SULFA, TRIMETHOPRIM, AND CODEINE. REVIEW OF SYSTEMS: GENERAL: He feels fatigued and somewhat weak. HEENT: Denies any nasal bleeding. CARDIOVASCULAR: Denies chest pain or palpitations. RESPIRATORY: Denies shortness of breath or wheezing. GASTROINTESTINAL: Recently diagnosed gastric tumor. GENITOURINARY: Please see history of present illness. NEUROLOGIC: No symptoms of stroke. PHYSICAL EXAMINATION: HEENT: Normocephalic and atraumatic. NECK: Supple without masses. CHEST: Clear to auscultation. CARDIOVASCULAR: Regular rhythm. ABDOMEN: Soft and nontender. No palpable masses. Liver and spleen, not palpable. No abdominal tenderness noted. No peritoneal signs. Catheterizable stoma site appears normal. EXTREMITIES: No edema. LABORATORY DATA: White count 1, hemoglobin 8.2, and hematocrit 23.3. Chemistry, creatinine 2.67. Microbiology, urine culture on 03/11/2019, Klebsiella, sensitive to all antibiotics tested. IMPRESSION: Mr. Evert De La Rosa is a patient followed by Dr. Glen Garcia with a significant prior urologic history of advanced bladder cancer requiring cystoprostatectomy with [place] pouch urinary diversion and then, right nephrectomy several years later. He has been stable in that regard and does quite well other than occasional urinary tract infections. He has recently been diagnosed with gastric cancer and is currently receiving chemo and radiation therapy for that. He has been diagnosed with urinary tract infection, he is neutropenic. UROLOGIC RECOMMENDATIONS: 1. Continue intermittent catheterization. This should be performed by the patient or his if possible, if they are not available for some reason, then nursing staff has been instructed. 2. Antibiotic therapy to be based on culture. He is currently receiving Zosyn. 3. Kidney function is stable and at baseline. 4. The patient and/or may irrigate pouch as needed. Please provide supplies requested by them. 5. No further urologic intervention required at this time. Job ID: [id number]
[2019-03-13] MEDS: Piperacillin/Tazobactam 2.25 GM in Sodium Chloride 0.9% 100 ML IVPB SCH ×2 (14:34→21:51)
[2019-03-13] MEDS: Heparin 5,000 UNITS/ML VIAL SC SCH ×2 (14:38→22:03)
[2019-03-13] MEDS ORDERED: Calcitriol 0.25 MCG CAP PO SCH (21:00)
[2019-03-14] MEDS: Piperacillin/Tazobactam 2.25 GM in Sodium Chloride 0.9% 100 ML IVPB SCH ×3 (05:49→21:19)
[2019-03-14 07:13] LABS: #Lymphocytes 0.1 thou/uL (1.20-3.40); #Monocytes 0.1 thou/uL (0.11-0.59); #Neutrophils 0.9 thou/uL (1.40-6.50); %Basophils 0.2 % (0.0-1.0); %Eosinophils 1.2 % (0.0-10.0); %Lymphocytes 7.9 % (21.0-51.0); %Monocytes 10.4 % (0.0-10.0); %Neutrophils 80.2 % (42.0-75.0); Hemoglobin 7.9 g/dL (14.0-18.0); Mean Corpuscular HGB CONC 35.6 g/dL (32.0-36.0); Mean Corpuscular Hemoglobin 34.4 pg (27.0-31.0); Mean Corpuscular Volume 96.5 fL (78.0-98.0); Mean Platelet Volume 9.4 fL (7.4-10.4); Platelet Count 43 thou/uL (130-400); RBC Distribution Width 17.1 % (11.5-14.5); White Blood Cell (WBC) Count 1.1 thou/uL (4.8-10.8)
[2019-03-14 07:24] LABS: Anion Gap 10 mmol/L (10-20); BUN (Urea Nitrogen) 33 mg/dL (8.4-25.7); Calc. Creatinine Clearance 35 mL/min (70-130); Calcium 8.3 mg/dL (7.8-10.44); Carbon Dioxide 18 mmol/L (23-31); Chloride 116 mmol/L (98-107); Estimated GFR-MDRD 27; Glucose 96 mg/dL (83-110); Potassium 4.1 mmol/L (3.5-5.1); Sodium 140 mmol/L (136-145)
[2019-03-14] MEDS ORDERED: Oxymetazoline HCl 0.05% ( 15 ML ) NASAL PRN (09:45)
--- NOTE | 2019-03-14 09:47 | PDOC.HOSPP ---
- Subjective Subjective: Mr. De La Rosa was seen today in follow-up of Neutropenic fever. He is concerned about a little nose bleed he had, and otherwise he is about at his baseline. - Objective Vital Signs & Weight: Vital Signs (12 hours) Temp Pulse Resp BP Pulse Ox 03/14/19 07:49 98.2 F 75 16 119/63 94 L 03/14/19 04:09 98.3 F 83 18 105/62 96 03/14/19 00:11 98.1 F 78 18 102/62 94 L Weight Weight 198 lb I&O: 03/13/19 03/14/19 03/15/19 06:59 06:59 06:59 Intake Total 500 Output Total 1301 Balance -801 Result Diagrams: 03/14/19 06:32 03/14/19 06:32 ROS - Review of Systems All systems: All other ROS were reviewed and found negative. - Medication Medications: Active Medications Generic Name Dose Route Start Last Admin Trade Name Freq PRN Reason Stop Dose Admin Calcitriol 0.25 mcg 03/13/19 21:00 03/13/19 21:51 Rocaltrol PO 0.25 mcg HS ANGÉLICA Administration Piperacillin Sod/Tazobactam 100 mls @ 200 mls/hr 03/13/19 14:00 03/14/19 05: 49 Sod 2.25 gm/ Sodium Chloride IVPB 100 mls Q8HR ANGÉLICA Administration Pantoprazole Sodium 40 mg 03/14/19 09:00 03/14/19 09:18 Protonix PO 40 mg DAILY ANGÉLICA Administration - Exam Eye: PERRL Heart: RRR, no murmur, no gallops, no rubs Respiratory: CTAB, no wheezes, no rales, no ronchi, normal chest expansion Gastrointestinal: soft, non-tender, non-distended, normal bowel sounds Extremities: 2+ LE edema (+ edema of the right lower extremity, no erythema, no calf tenderness) Neurological: CN's grossly intact, normal sensation to touch, no weakness, no focal deficits, no new deficit Hosp A/P (1) Neutropenic fever Code(s): D70.9 - NEUTROPENIA, UNSPECIFIED; R50.81 - FEVER PRESENTING WITH CONDITIONS CLASSIFIED ELSEWHERE Status: Acute (2) Complicated UTI (urinary tract infection) Code(s): N39.0 - URINARY TRACT INFECTION, SITE NOT SPECIFIED Status: Acute (3) Bladder cancer Status: Chronic (4) Chronic systolic heart failure Code(s): I50.22 - CHRONIC SYSTOLIC (CONGESTIVE) HEART FAILURE Status: Chronic (5) Chronic kidney disease, stage 4 (severe) Code(s): N18.4 - CHRONIC KIDNEY DISEASE, STAGE 4 (SEVERE) Status: Chronic - Plan * Neutropenic fever due to complicated UTI- urine culture from the 25th is growing Klebsiella as well as Pseudomonas. Both are sensitive to Zosyn as well as Cipro. Will continue Zosyn for now ( due to the Pseudomonas) * His WBC count is about the same, awaiting recovery * Pancytopenia- likely due to Chemotherapy * Chronic systolic heart failure- compensated * CKD- stage 4 stable * Mild epistaxis- likely related to the thrombocytopenia, and nasal congestion - will add Ismael
[2019-03-14] MEDS ORDERED: Carvedilol 6.25 MG TAB PO SCH (11:00)
[2019-03-14] MEDS ORDERED: Amiodarone 200 MG TAB PO SCH (11:00)
[2019-03-14] MEDS ORDERED: Ascorbic Acid 500 mg Chewable Tablet PO SCH (11:00)
[2019-03-14] MEDS: Carvedilol 6.25 MG TAB PO SCH (21:19)
[2019-03-14] MEDS: Calcitriol 0.25 MCG CAP PO SCH (21:19)
[2019-03-14] MEDS: Atorvastatin Calcium 10 MG TAB PO SCH (21:20)
[2019-03-14] MEDS: Acetaminophen 325 MG TAB PO PRN (22:43)
[2019-03-15] MEDS: Piperacillin/Tazobactam 2.25 GM in Sodium Chloride 0.9% 100 ML IVPB SCH ×3 (05:51→21:00)
--- NOTE | 2019-03-15 07:57 | PDOC.HOSPP ---
- Subjective Subjective: Mr. De La Rosa was seen today in follow-up of Neutropenic fever. He does not have any complaints today. He denies any epistaxis. - Objective Vital Signs & Weight: Vital Signs (12 hours) Temp Pulse Resp BP BP Pulse Ox 03/15/19 04:00 98.1 F 71 16 108/54 L 95 03/15/19 00:00 98.6 F 80 16 104/53 L 97 03/14/19 21:19 119/56 L 03/14/19 20:05 97.8 F 72 18 119/56 L 99 Weight Weight 198 lb I&O: 03/14/19 03/15/19 03/16/19 06:59 06:59 06:59 Intake Total 500 Output Total 1301 Balance -801 Result Diagrams: 03/14/19 06:32 03/14/19 06:32 ROS - Review of Systems All systems: All other ROS were reviewed and found negative. - Medication Medications: Active Medications Generic Name Dose Route Start Last Admin Trade Name Freq PRN Reason Stop Dose Admin Acetaminophen 650 mg 03/13/19 09:36 03/14/19 22:43 Tylenol PO 650 mg Q4H PRN Administration Headache/Fever/Mild Pain (1-3) Atorvastatin Calcium 10 mg 03/14/19 21:00 03/14/19 21:20 Lipitor PO 10 mg HS ANGÉLICA Administration Calcitriol 0.25 mcg 03/14/19 21:00 03/14/19 21:19 Rocaltrol PO 0.25 mcg QPM ANGÉLICA Administration Carvedilol 6.25 mg 03/14/19 21:00 03/14/19 21:19 Coreg PO 6.25 mg BID ANGÉLICA Administration Piperacillin Sod/Tazobactam 100 mls @ 200 mls/hr 03/13/19 14:00 03/15/19 05: 51 Sod 2.25 gm/ Sodium Chloride IVPB 100 mls Q8HR ANGÉLICA Administration Pantoprazole Sodium 40 mg 03/14/19 09:00 03/14/19 09:18 Protonix PO 40 mg DAILY ANGÉLICA Administration - Exam Eye: PERRL, anicteric sclera Heart: RRR, no murmur, no gallops, no rubs Respiratory: CTAB, no wheezes, no rales, no ronchi, normal chest expansion Gastrointestinal: soft, non-tender, non-distended, normal bowel sounds, no palpable masses Extremities: no cyanosis, 2+ LE edema (+ edema in the right lower extremity) Neurological: no new deficit Hosp A/P (1) Neutropenic fever Code(s): D70.9 - NEUTROPENIA, UNSPECIFIED; R50.81 - FEVER PRESENTING WITH CONDITIONS CLASSIFIED ELSEWHERE Status: Acute (2) Complicated UTI (urinary tract infection) Code(s): N39.0 - URINARY TRACT INFECTION, SITE NOT SPECIFIED Status: Acute (3) Bladder cancer Status: Chronic (4) Chronic systolic heart failure Code(s): I50.22 - CHRONIC SYSTOLIC (CONGESTIVE) HEART FAILURE Status: Chronic (5) Chronic kidney disease, stage 4 (severe) Code(s): N18.4 - CHRONIC KIDNEY DISEASE, STAGE 4 (SEVERE) Status: Chronic - Plan * Neutropenic fever due to complicated UTI- will continue Zosyn * CBC is pending * Bladder cancer- patient is scheduled to have radiation today and chemotherapy soon- will defer to Oncology * CKD- stable * Chronic systolic heart failure- compensated
[2019-03-15 08:01] LABS: #Lymphocytes 0.1 thou/uL (1.20-3.40); #Monocytes 0.1 thou/uL (0.11-0.59); %Basophils 0.5 % (0.0-1.0); %Eosinophils 2.3 % (0.0-10.0); %Lymphocytes 9.8 % (21.0-51.0); %Monocytes 11.1 % (0.0-10.0); %Neutrophils 76.3 % (42.0-75.0); Hemoglobin 8.4 g/dL (14.0-18.0); Mean Corpuscular HGB CONC 34.5 g/dL (32.0-36.0); Mean Corpuscular Hemoglobin 32.9 pg (27.0-31.0); Mean Corpuscular Volume 95.4 fL (78.0-98.0); Platelet Count 49 thou/uL (130-400); RBC Distribution Width 17.6 % (11.5-14.5); Red Blood Cell (RBC) Count 2.56 mill/uL (4.70-6.10); White Blood Cell (WBC) Count 1.3 thou/uL (4.8-10.8)
[2019-03-15] MEDS: Ascorbic Acid 500 mg Chewable Tablet PO SCH (08:24)
[2019-03-15] MEDS: Carvedilol 6.25 MG TAB PO SCH ×2 (08:25→21:00)
[2019-03-15] MEDS: Amiodarone 200 MG TAB PO SCH (08:25)
[2019-03-15] MEDS ORDERED: Ascorbic Acid 500 mg Chewable Tablet PO SCH (09:00)
[2019-03-15] MEDS ORDERED: Furosemide 40 MG TAB PO SCH (14:45)
--- NOTE | 2019-03-15 17:26 | PRG ---
DATE OF SERVICE: 03/15/2019 SUBJECTIVE: Evert is a 73-year-old white male, who is a patient of mine, who was seen on March 15, 2019. He was admitted with febrile neutropenic infection and grew out a Klebsiella greater than 100,000 in his urine and Pseudomonas 25,000 to 50,000 in his urine. The Klebsiella was resistant only to nitrofurantoin. The Pseudomonas was checked and was found to be pansensitive, although was not checked against Bactrim. He has been afebrile and feeling well for the last 24 to 36 hours. He has been in and out cathing through his [place] pouch without difficulty, and he and the reports that the mucus amount has been steadily diminishing. He has had stable vital signs and has been afebrile. He is currently still on Zosyn, which does cover both organisms. His white count is 1.3, this morning his hemoglobin is 8.4, his creatinine is 2.4. He does have a history of renal insufficiency and this is about baseline for him. He is not complaining of any flank pain or abdominal pain. He had a little bit of left hip discomfort a day or two ago, but that has resolved. He has poor appetite, but this probably has more to do with his gastric cancer in the chemo and radiation. He is going to be seeing Dr. Pandya later today and I think to make a decision about his next round of chemotherapy. In terms of what antibiotic he can go home on, he could probably go home on something like Omnicef which would most likely cover both of these organisms, to be an oral antibiotic that he could use. His other option would be Cipro, which would also cover both of these. He does have, I guess, an allergy actually to Levaquin which could transfer an allergy as to Cipro, so perhaps the Omnicef would be the better drug for him to go home on. In any event, I will pick him up as he routinely follows up with me in my office. Job ID: [id number]
[2019-03-15] MEDS: Atorvastatin Calcium 10 MG TAB PO SCH (21:00)
[2019-03-15] MEDS: Calcitriol 0.25 MCG CAP PO SCH (21:00)
[2019-03-16] MEDS: Piperacillin/Tazobactam 2.25 GM in Sodium Chloride 0.9% 100 ML IVPB SCH ×2 (05:46→13:23)
[2019-03-16] MEDS: Ascorbic Acid 500 mg Chewable Tablet PO SCH (08:14)
[2019-03-16] MEDS: Carvedilol 6.25 MG TAB PO SCH (08:14)
[2019-03-16] MEDS: Amiodarone 200 MG TAB PO SCH (08:15)
[2019-03-16] MEDS ORDERED: Furosemide 40 MG TAB PO SCH (09:00)
[2019-03-16 10:44] LABS: Anion Gap 13 mmol/L (10-20); BUN (Urea Nitrogen) 24 mg/dL (8.4-25.7); Calc. Creatinine Clearance 36 mL/min (70-130); Calcium 8.3 mg/dL (7.8-10.44); Carbon Dioxide 19 mmol/L (23-31); Chloride 112 mmol/L (98-107); Estimated GFR-MDRD 27; Glucose 135 mg/dL (83-110); Potassium 3.8 mmol/L (3.5-5.1); Sodium 140 mmol/L (136-145)
[2019-03-16 10:55] LABS: Anisocytosis SLIGHT = 6-15 cells (100X) (0-5/hpf); Band 3 % (5-11); Eosinophils 1 % (0-10); Hemoglobin 7.9 g/dL (14.0-18.0); Lymphocytes 8 % (21-51); MDiff Complete? YES; Macrocytosis SLIGHT = 6-15 cells (100X) (0-5/hpf); Mean Corpuscular HGB CONC 34.6 g/dL (32.0-36.0); Mean Corpuscular Hemoglobin 33.8 pg (27.0-31.0); Mean Corpuscular Volume 97.7 fL (78.0-98.0); Mean Platelet Volume 9.1 fL (7.4-10.4); Monocytes 14 % (0-10); Neutrophil 74 % (42-75); Platelet Count 55 thou/uL (130-400); Platelet Morphology Comment Appears Decreased; RBC Distribution Width 17.6 % (11.5-14.5); Red Blood Cell (RBC) Count 2.35 mill/uL (4.70-6.10); White Blood Cell (WBC) Count 1.3 thou/uL (4.8-10.8)
[2019-03-16 13:28] VITALS: BP 130/61; TEMP 98.4
[2019-03-16] MEDS: Acetaminophen 325 MG TAB PO PRN (14:07)
--- NOTE | 2019-03-16 14:50 | PDOC.HOSPP ---
- Subjective Subjective: Mr. De La Rosa was seen today in follow-up of Neutropenic fever. He does not hav e any complaints today. - Objective Vital Signs & Weight: Vital Signs (12 hours) Temp Pulse Resp BP BP Pulse Ox 03/16/19 12:00 98.4 F 71 16 130/61 97 03/16/19 08:15 97.6 F 83 18 132/64 97 03/16/19 08:14 132/64 03/16/19 08:00 97 Weight Admit Weight 198 lb Weight 198 lb I&O: 03/15/19 03/16/19 03/17/19 06:59 06:59 06:59 Intake Total 1210 Output Total 2350 Balance -1140 Result Diagrams: 03/16/19 10:14 03/16/19 10:14 ROS - Review of Systems All systems: All other ROS were reviewed and found negative. - Medication Medications: Active Medications Generic Name Dose Route Start Last Admin Trade Name Freq PRN Reason Stop Dose Admin Acetaminophen 650 mg 03/13/19 09:36 03/16/19 14:07 Tylenol PO 650 mg Q4H PRN Administration Headache/Fever/Mild Pain (1-3) Amiodarone HCl 200 mg 03/15/19 09:00 03/16/19 08:15 Cordarone PO 200 mg DAILY ANGÉLICA Administration Ascorbic Acid 500 mg 03/15/19 09:00 03/16/19 08:14 Vitamin C PO 500 mg DAILY ANGÉLICA Administration Atorvastatin Calcium 10 mg 03/14/19 21:00 03/15/19 21:00 Lipitor PO 10 mg HS ANGÉLICA Administration Calcitriol 0.25 mcg 03/14/19 21:00 03/15/19 21:00 Rocaltrol PO 0.25 mcg QPM ANGÉLICA Administration Carvedilol 6.25 mg 03/14/19 21:00 03/16/19 08:14 Coreg PO 6.25 mg BID ANGÉLICA Administration Furosemide 40 mg 03/16/19 09:00 03/16/19 08:14 Lasix PO 40 mg QAM ANGÉLICA Administration Piperacillin Sod/Tazobactam 100 mls @ 200 mls/hr 03/13/19 14:00 03/16/19 13: 23 Sod 2.25 gm/ Sodium Chloride IVPB 100 mls Q8HR ANGÉLICA Administration Pantoprazole Sodium 40 mg 03/14/19 09:00 03/16/19 08:14 Protonix PO 40 mg DAILY ANGÉLICA Administration - Exam Eye: PERRL, anicteric sclera Heart: RRR, no murmur, no gallops, no rubs, normal peripheral pulses Respiratory: CTAB, no wheezes, no rales, no ronchi, normal chest expansion Gastrointestinal: soft, non-tender, non-distended, normal bowel sounds Extremities: 1+ LE edema (Edema in the right lower extremity,) Hosp A/P (1) Neutropenic fever Code(s): D70.9 - NEUTROPENIA, UNSPECIFIED; R50.81 - FEVER PRESENTING WITH CONDITIONS CLASSIFIED ELSEWHERE Status: Acute (2) Complicated UTI (urinary tract infection) Code(s): N39.0 - URINARY TRACT INFECTION, SITE NOT SPECIFIED Status: Acute (3) Bladder cancer Status: Chronic (4) Chronic systolic heart failure Code(s): I50.22 - CHRONIC SYSTOLIC (CONGESTIVE) HEART FAILURE Status: Chronic (5) Chronic kidney disease, stage 4 (severe) Code(s): N18.4 - CHRONIC KIDNEY DISEASE, STAGE 4 (SEVERE) Status: Chronic - Plan * Neutropenic fever-Improved * He has been cleared for discharge
--- NOTE | 2019-03-16 15:53 | DIS ---
DATE OF ADMISSION: 03/13/2019 DATE OF DISCHARGE: 03/16/2019 PRIMARY CARE PHYSICIAN: Ellis Espinal MD. DISCHARGE DISPOSITION: Home. PRIMARY DISCHARGE DIAGNOSES: 1. Complicated urinary tract infection with neutropenic fever. 2. History of bladder cancer. 3. Chronic systolic heart failure. 4. Osteoarthritis. 5. Chronic kidney disease, stage 4. 6. History of previous deep venous thrombosis. DISCHARGE MEDICATIONS: 1. Keflex 500 mg twice daily. 2. Simvastatin 20 mg at bedtime. 3. Potassium chloride 20 mEq daily. 4. Furosemide 40 mg daily. 5. Zyrtec 10 mg daily. 6. Carvedilol 6.25 mg twice a day. 7. Calcitriol 0.25 mcg p.o. q.p.m. 8. Vitamin C 500 mg daily. 9. Amiodarone 200 mg a day. CODE STATUS: Full code. ALLERGIES: TO ADHESIVE, BACITRACIN, CODEINE, PENICILLIN, SULFA, ERYTHROMYCIN, SULFAMETHIZOLE, PROMETHAZINE, POLYMYXIN B, LATEX, AND PFIZERPEN. HOSPITAL COURSE: Mr. De La Rosa is a pleasant 73-year-old gentleman, who was admitted to the hospital after he suffered a high fever at home. He was evaluated in the ER and found to have a neutropenic fever. He was also found to have a urinary tract infection and the neutropenic fever is thought to be secondary to this. He has a history of having surgery for bladder cancer and has had an [place] pouch and an ileal conduit with chronic in and out catheterizations. This is likely predisposed him to the infection. He was seen by his urologist, Dr. Garcia as well as Oncology during his hospital stay. Once he was clinically improved as well as his white count improving, he was stabilized and able to be discharged home in good condition and to follow up with Dr. Pandya as instructed and also with his primary care doctor, Dr. Espinal, in 1 to 2 weeks. Job ID: [id number]
--- NOTE | 2019-03-17 05:39 | PQF ---
[employer] Crystal [employer] Winform Viewer SUSAN PONCE TONI MD [id number] [facility] B- [id number] CLINICAL DOCUMENTATION CLARIFICATION FORM: POST DISCHARGE Addendum to original discharge summary date: ____ Late entry note date: __ DATE: 03/17/19 ATTN: Marquis Baird Please exercise your independent, professional judgment in responding to the clarification form. Clinical indicators are provided on the bottom of this form for your review Can you please specify if the patient chronic in and out catheterization was the cause of UTI? Please check appropriate box(s): [ X ] UTI is a complication of patient chronic in and out catheterization [ ] UTI is not complication of chronic in and out catheterization [ ] Other diagnosis please specify: [ ] Unable to determine CLINICAL INDICATORS: H and P 03/13 pg.1 - urine suggestive of urinary tract infection and he is being admitted H and P 03/13 pg.1- He has an ileal conduit and has to do self catheterization. H and P 03/13 pg.2- Laboratory: Urinalysis showed it is cloudy, yellow, positive nitrates, and leukocyte esterase is greater than 50. H and P 03/13 pg.2- Neutropenic fever due to a complicated urinary tract infection DS 03/16 pg.1 -2- He has a history of having surgery for bladder cancer and has had an [place] pouch and an ileal conduit with chronic in and out catheterizations. This is likely predisposed him to infection. RISK FACTORS: History of bladder cancer- H and P pg.1 S/p Bladder resection and ileal conduit-H and P pg.1 Chronic kidney disease stage 4- H and P pg.2 Self catheterization-H and P 03/13 pg. TREATMENT: IV Fluids- OCT 22 Piperacillin (Zosyn)3.375gm IV- OCT 22 Urinalysis- H and P pg.1 [employer] Winform Viewer (This form is maintained as a part of the permanent medical record) 2014 [employer]. All Rights Reserved Lonnie [email or web address] [not provided] MTDD
--- NOTE | 2019-03-17 06:07 | PQF ---
[employer] Manager Crystal Reports Winform Viewer SUSAN PONCE TONI MD [id number] [facility] B- [id number] CLINICAL DOCUMENTATION CLARIFICATION FORM: POST DISCHARGE Addendum to original discharge summary date: ____ Late entry note date: __ DATE: 03-16-19 ATTN: Marquis Baird Please exercise your independent, professional judgment in responding to the clarification form. Clinical indicators are provided on the bottom of this form for your review Can you please specify whether Drug induced pancytopenia is ruled in or ruled out during this encounter? Please check appropriate box(s) to clarify if the following diagnosis has been ruled in or ruled out: Pancytopenia due to chemotherapy [ X ] Other diagnosis please specify ____Pancytopenia due to chemotherapy _ [ ] Unable to determine For continuity of documentation, please document condition throughout progress notes and discharge summary. Thank You. CLINICAL INDICATORS: H and P 03/13 pg.1- 73 years old gentleman, who has history of bladder cancer ans he is status post bladder resection with ileal conduit H and P 03/13 pg.1- He is undergoing chemotherapy and radiation for the bladder cancer and his last chemotherapy was last Friday. H and P 03/13 pg.3- Neutropenia in a setting of pancytopenia, likely due to chemotherapy. Consult 03/[address] Loyola- The patient current white blood cells count is 1.1 , and had fever up to 101.4 last night. Hospitalist PN 03/14 pg.3- pancytopenia-likely due to chemotherapy Hospitalist PN 03/14 pg.3- Mild epistaxis-likely related to thrombocytopenia DS 03/16 pg.1- Complicated UTI with neutropenic fever RISK FACTORS: Neutropenic Fever- H and P 03/13 pg.3 Abnormal Blood chemistry- Laboratory 03/13 Bladder cancer-- H and P 03/13 pg.1 Recent Chemotherapy and radiation therapy- H and P pg.1 TREATMENTS: IV Fluids- MAR 03/13 Oncology Consult- 03/13 Dr. Loyola (This form is maintained as a part of the permanent medical record) 2014 [employer]. All Rights Reserved Lonnie [email or web address] [not provided] MTDD
== END 2019-03-16 15:53 | disposition home or self-care (01) | DRG 698 ==
LOC: ERS 02:01 → SURG B 06:14 → ONC 03-14 17:25
PROVIDERS: ADMIT Internal Medicine; ATTEND Internal Medicine
DX: T83.511A Infection and inflammatory reaction due to indwelling urethral catheter, initial encounter (principal); D61.810 Antineoplastic chemotherapy induced pancytopenia; I50.22 Chronic systolic (congestive) heart failure; C78.89 Secondary malignant neoplasm of other digestive organs; N18.4 Chronic kidney disease, stage 4 (severe); I13.0 Hypertensive heart and chronic kidney disease with heart failure and stage 1 through stage 4 chronic kidney disease, or unspecified chronic kidney disease; N39.0 Urinary tract infection, site not specified; Y84.6 Urinary catheterization as the cause of abnormal reaction of the patient, or of later complication, without mention of misadventure at the time of the procedure; R50.81 Fever presenting with conditions classified elsewhere; E03.9 Hypothyroidism, unspecified; C67.9 Malignant neoplasm of bladder, unspecified; I48.91 Unspecified atrial fibrillation; B96.1 Klebsiella pneumoniae [K. pneumoniae] as the cause of diseases classified elsewhere; B96.5 Pseudomonas (aeruginosa) (mallei) (pseudomallei) as the cause of diseases classified elsewhere; Z16.24 Resistance to multiple antibiotics; M19.90 Unspecified osteoarthritis, unspecified site; K21.9 Gastro-esophageal reflux disease without esophagitis; E78.5 Hyperlipidemia, unspecified; J44.9 Chronic obstructive pulmonary disease, unspecified; R04.0 Epistaxis; Z88.1 Allergy status to other antibiotic agents; Z91.040 Latex allergy status; Z87.891 Personal history of nicotine dependence; Z79.899 Other long term (current) drug therapy; Z95.0 Presence of cardiac pacemaker; Z88.2 Allergy status to sulfonamides; T45.1X5A Adverse effect of antineoplastic and immunosuppressive drugs, initial encounter
CPT/HCPCS: 36415; 77336; 77386; 77417; 80048; 85025; 87086; 99284; J1642; J1644; J2543; J3490

== ENCOUNTER 2019-04-26 08:13 | Day surgery (SDC) | payer MEDICARE, OTHER ==
[2019-04-23 10:27] VITALS: BMI 29.8
--- NOTE | 2019-04-26 10:38 | OP ---
DATE OF PROCEDURE: 04/26/2019 REPEAT CHIEF SURGEON: None. PROCEDURE PERFORMED: Esophagogastroduodenoscopy with esophageal dilation over guidewire. INDICATIONS: 1. Adenocarcinoma of the GE junction, currently undergoing radiation and chemotherapy. 2. Dysphagia. MEDICATIONS: See Anesthesia record. FINDINGS: After discussion of the risks, benefits, and alternatives of the procedure, informed consent was obtained and witnessed. Pre-endoscopic cardiopulmonary examination was satisfactory. Time-out was performed before sedation was achieved. Sedation was achieved with Anesthesia assistance in the endoscopy unit. A Pentax adult upper endoscope was placed into the oropharynx and passed through the cricopharyngeus under direct visualization. The proximal and mid esophageal mucosa appeared normal. In the distal esophagus just above the GE junction, there was fibrosis and circumferential scarring consistent with benign stricture. This was likely from recent radiation. Just beyond this area past the GE junction, there was a small mass representing his known adenocarcinoma just beyond the GE junction. This was not ulcerated or bleeding. It was similar in appearance to his prior exam. The endoscope was passed into the stomach. Forward and retroflexed views of the entire gastric mucosa were obtained, which otherwise appeared unremarkable. The endoscope was advanced through the pylorus into the first and second portions of the duodenum, which appeared normal. At this point, a spring tipped Savary guidewire was advanced into the gastric lumen with the tip in the gastric antrum. The endoscope was removed leaving the guidewire in place. I performed serial dilations with Savary dilators over the guidewire first to 15 mm and then the 16 mm with mild and then moderate resistance. At this point, the dilator was completely withdrawn. The endoscope was passed back down to the GE junction. Good mucosal disruption was visualized at the distal esophageal stricture. There was minimal blood loss. The upper endoscope was completely withdrawn and the procedure was completed. The patient tolerated the procedure well. There were no immediate postprocedure complications. IMPRESSION: 1. 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 2. 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 Dilated serially to 15 mm and then 16 mm with good mucosal disruption. RECOMMENDATIONS: 1. The patient can resume his Eliquis tomorrow. 2. Increase Protonix to 40 mg twice daily dosing. 3. Follow up with Dr. Pandya and Dr. Hankins as previously planned. 4. Follow up in GI Clinic in about a month. If dysphagia symptoms are recurrent, esophageal dilation could be repeated. Job ID: [id number]
[2019-04-26] MEDS ORDERED: PROPOFOL 200 MG/20 ML VIAL ONE (14:49)
[2019-04-26] MEDS ORDERED: Lidocaine 1% PF 5 ML VIAL ONE (14:49)
== END 2019-04-26 11:34 | disposition home or self-care (01) ==
LOC: SDC 08:13
PROVIDERS: ATTEND Internal Medicine
PROC: 0D748ZZ Dilation of Esophagogastric Junction, Via Natural or Artificial Opening Endoscopic (ICD-10-PCS; principal; 2019-04-26)
DX: C16.0 Malignant neoplasm of cardia (principal); K22.2 Esophageal obstruction; M19.90 Unspecified osteoarthritis, unspecified site; I25.2 Old myocardial infarction; I50.9 Heart failure, unspecified; N18.9 Chronic kidney disease, unspecified; D50.0 Iron deficiency anemia secondary to blood loss (chronic); Z86.718 Personal history of other venous thrombosis and embolism; Z87.891 Personal history of nicotine dependence; Z79.01 Long term (current) use of anticoagulants; Z79.899 Other long term (current) drug therapy; Z88.0 Allergy status to penicillin; Z88.1 Allergy status to other antibiotic agents; Z88.2 Allergy status to sulfonamides; Z88.5 Allergy status to narcotic agent; Z88.8 Allergy status to other drugs, medicaments and biological substances; Z91.040 Latex allergy status; Z95.810 Presence of automatic (implantable) cardiac defibrillator; Z90.5 Acquired absence of kidney

== ENCOUNTER 2019-05-13 08:31 | Outpatient (CLI) | payer MEDICARE, OTHER ==
--- NOTE | 2019-05-13 15:12 | PET ---
EXAM: PET CT skull to mid thigh COMPARISON: CT chest abdomen pelvis 01/25/2019 HISTORY: Malignant neoplasm of the lower third of the esophagus; history of bladder cancer TECHNIQUE: A PET/CT was performed from the skull to the mid thigh after administration of 12.6 millic uries of F-18 FDG. Evaluation was performed on a [employer] workstation. FINDINGS: NECK: No areas of hypermetabolic activity CHEST: No areas of hypermetabolic activity. No hypermetabolic activity is seen at the gastroesophagea l junction. ABDOMEN/PELVIS: No areas of hypermetabolic activity SKELETON: No areas of hypermetabolic activity CT images used for attenuation correction show emphysematous changes in the lungs. The patient has a pacemaker with its leads in the right atrium and ventricle. The patient has an ileal conduit and hypermetabolic activity along the right pelvic sidewall represents urine within the patient's neoblad tomi. The right kidney has been removed. Atherosclerotic calcifications are seen in the aorta. There is a right-sided Mediport with its tip in the superior vena cava. IMPRESSION: No evidence of residual disease
== END 2019-05-13 08:32 | disposition home or self-care (01) ==
LOC: PET 08:31
PROVIDERS: ATTEND Internal Medicine Hematology & Oncology
DX: C15.5 Malignant neoplasm of lower third of esophagus (principal); C67.9 Malignant neoplasm of bladder, unspecified
CPT/HCPCS: 78815; A9552

== ENCOUNTER 2019-06-16 09:58 | Day surgery (SDC) | payer MEDICARE, OTHER ==
--- NOTE | 2019-06-16 12:56 | OP ---
DATE OF PROCEDURE: 06/16/2019 SERVICE STATION EQUIPMENT MECHANIC SURGEON: None. PROCEDURE PERFORMED: Esophagogastroduodenoscopy with biopsies. INDICATION: History of adenocarcinoma of the GE junction, diagnosed in January 2019 with biopsies. The patient is now status post chemotherapy and radiation. He is status post dilation of a radiation stricture to the distal esophagus on 04/26/2019. Today's exam is for reassessment of his GE junction mass and rebiopsy. MEDICATIONS: See Anesthesia record. FINDINGS: After discussion of the risks, benefits, and alternatives of the procedure, informed consent was obtained and witnessed. Pre-endoscopic cardiopulmonary examination was satisfactory. Time-out was performed before sedation was achieved. Sedation was achieved with Anesthesia assistance in the endoscopy unit. A Pentax adult upper endoscope was placed into the oropharynx and passed through the cricopharyngeus under direct visualization. The proximal and mid esophageal mucosa appeared normal. In the distal esophagus, there is circumferential, but mild radiation fibrosis as seen previously. The endoscope was easily advanced beyond this area to the GE junction. Forward and retroflexed views of the GE junction were obtained. There is a small subcentimeter nodule at the GE junction. This is much decreased in size from his initial evaluation in January, and actually appears far less prominent than it did on repeat examination in April. Multiple biopsies were obtained from this small nodular area for histology. The remainder of the stomach appeared normal. The endoscope was advanced through the pylorus and into the first and second portions of the duodenum, which also appeared normal. The upper endoscope was then completely withdrawn, and the patient allowed to recover. The patient tolerated the procedure well. There were no immediate postprocedure complications. IMPRESSION: 1. Small residual nodule at the GE junction, less than 1 cm in diameter. Biopsied for histology. 2. Mild fibrosis in the distal esophagus. 3. Otherwise normal esophagogastroduodenoscopy. RECOMMENDATIONS: 1. Follow up pathology on the GE junction nodule biopsies. 2. Follow up with Dr. Pandya. 3. Can resume Eliquis tomorrow. 4. Further EGD surveillance per Oncology recommendations. We remain available to assist in any way possible. Job ID: [id number]
== END 2019-06-16 13:20 | disposition home or self-care (01) ==
LOC: SDC 09:58
PROVIDERS: ATTEND Internal Medicine
PROC: 0DB48ZX Excision of Esophagogastric Junction, Via Natural or Artificial Opening Endoscopic, Diagnostic (ICD-10-PCS; principal; 2019-06-16)
DX: C16.0 Malignant neoplasm of cardia (principal); K29.00 Acute gastritis without bleeding; K29.50 Unspecified chronic gastritis without bleeding; K22.8 Other specified diseases of esophagus; E78.5 Hyperlipidemia, unspecified; I10 Essential (primary) hypertension; I25.2 Old myocardial infarction; M19.90 Unspecified osteoarthritis, unspecified site; J44.9 Chronic obstructive pulmonary disease, unspecified; Z79.01 Long term (current) use of anticoagulants; Z79.899 Other long term (current) drug therapy; Z88.0 Allergy status to penicillin; Z88.1 Allergy status to other antibiotic agents; Z88.2 Allergy status to sulfonamides; Z88.5 Allergy status to narcotic agent; Z91.040 Latex allergy status
CPT/HCPCS: 88305; 88312; 88313

== ENCOUNTER 2019-12-24 06:34 | Outpatient (CLI) | payer MEDICARE, OTHER ==
[2019-12-24 18:22] LABS: SARS-CoV-2 MS2 Positive; SARS-CoV-2 N Gene Negative; SARS-CoV-2 S Gene Negative; SARS-CoV-2 orf1ab Negative
== END 2019-12-24 06:35 | disposition home or self-care (01) ==
LOC: LABBT 06:34
PROVIDERS: ATTEND Internal Medicine
DX: Z01.812 Encounter for preprocedural laboratory examination (principal); Z11.59 Encounter for screening for other viral diseases
CPT/HCPCS: 87635; U0003

== ENCOUNTER 2020-01-07 09:31 | Outpatient (CLI) | payer MEDICARE, OTHER ==
--- NOTE | 2020-01-07 12:31 | PET ---
Nuclear medicine FDG PET/CT: (Positron emission tomography and computed tomography) DATE: 01/07/2020 HISTORY: 74-year-old male with esophageal cancer and bladder cancer. C 67.8 and C 15.5 COMPARISON: 05/13/2019 TECHNIQUE: IV injection of F-18 fluorodeoxyglucose (FDG) dose: 12.5 mCi. PET scan and attenuation correction CT performed from skull base to proximal thighs. FINDINGS: SUV (standard uptake values) numbers given are maximum SUVs. QCLR used. Attenuation correction CT images currently demonstrate diffusely high attenuation of the liver parenc hyma, 95 Hounsfield units, higher than that of previous study which showed 73 Hounsfield units. Again noted are the several small partially calcified gallstones on the order of 1 cm and smaller, hester rrounded by hazy high density material which could represent sludge in the lumen of the gallbladder. No pericholecystic edema. Absent right kidney. Surgical clips in the right renal bed. The ileal pouch neobladder within the pel avery cavity has much more fluid and is more distended on the current CT compared to the previous. Very high FDG uptake in the contents of this pouch, 11.0 SUV, is expected for normal urine. Such high uptake causes artifact blooms outside of the pouch into adjacent regions, decreasing the sensitivity for the detection of neoplastic tumor activity within the pelvic cavity. Diverging ostomy is again noted in the right lower quadrant. Again noted are the multiple surgical clips within the pelvic cavity, including along iliac chains. Again noted are the severe bilateral upper lobe centrilobular emphysematous changes. Pulmonary scar i n the left upper lobe is again noted. Again noted are the severe diffuse groundglass densities throughout the mid and lower lung zones bilaterally. These have actually become worse. Again noted is the large hydrocele in the right scrotal sac. At its posterior aspect there is a soft tissue density structure with SUV of 4.3, similar to prior study. This probably represents the displaced right testicle. No hydrocele is identified in the left scrotal sac No suspicious FDG avid lesion is identified in the esophagus,, mediastinum, or maury. At the thoracic inlet, located slightly posterior and lateral to the right lobe of the thyroid gland, posterior to the right internal jugular vein, abutting the right lateral edge of the right common carotid artery, and approximately 2 cm anterolateral to the T1-T2 junction of the upper thoracic spin e, there is a 0.9 x 1.4 cm lymph node. It was previously 0.8 x 0.5 cm, inconspicuous, and previously not FDG avid. Its current SUV is 2.5, borderline elevated. No suspicious hypermetabolic activity in the rest of the neck, chest, or abdomen. IMPRESSION: 1.) Mild interval growth of a lymph node in the right cervicothoracic junction which has become borde rline hypermetabolic. This is somewhat suspicious for metastatic lymph node. Because of its deep location, this is not amenable to percutaneous biopsy. 2) Diffusely high CT attenuation of the liver. One possibility is hemachromatosis. 3.) Cholelithiasis and probable gallbladder sludge. 4.) severe centrilobular emphysema. 5.) Moderate to severe diffuse groundglass densities throughout the mid and lower lung zones bilatera lly, worse than before. Nonspecific. 6) Large right scrotal hydrocele. 7) status post right nephrectomy, cystectomy, will urine and diverging reconstructive surgery with il eal pouch, and status post iliac chain lymph node dissection.
== END 2020-01-07 09:32 | disposition home or self-care (01) ==
LOC: PET 09:31
PROVIDERS: ATTEND Internal Medicine Hematology & Oncology
DX: C15.5 Malignant neoplasm of lower third of esophagus (principal); C67.8 Malignant neoplasm of overlapping sites of bladder; J43.2 Centrilobular emphysema; K80.20 Calculus of gallbladder without cholecystitis without obstruction
CPT/HCPCS: 78815; A9552

== ENCOUNTER 2020-04-26 14:14 | Outpatient (CLI) | payer MEDICARE, OTHER ==
--- NOTE | 2020-04-26 14:45 | ULT ---
EXAM: Right lower extremity venous Doppler US HISTORY: Right lower extremity edema and pain FINDINGS: Grayscale, color-flow, Doppler evaluation, spectral analysis of the right lower extremity venous stru ctures is performed with 2-D imaging. The right common femoral, superficial femoral, popliteal, posterior tibial, proximal greater saphenous and profunda femoral veins are imaged. There is normal luminal compressibility, flow, and augmentation the visualized deep venous structures of the right lower extremity. IMPRESSION: No evidence of a deep vein thrombosis in the right lower extremity.
== END 2020-04-26 14:15 | disposition home or self-care (01) ==
LOC: BICULT 14:14
PROVIDERS: ATTEND Internal Medicine Nephrology
DX: R22.42 Localized swelling, mass and lump, left lower limb (principal); N18.4 Chronic kidney disease, stage 4 (severe)

== ENCOUNTER 2020-05-16 21:22 | Inpatient (IN) | payer MEDICARE, OTHER ==
[2020-05-16 23:56] LABS: SARS-CoV-2 NAA Rapid Test Not Detected (NotDetected)
[2020-05-17] MEDS ORDERED: Acetaminophen 650 MG Suppository PR PRN (00:07)
[2020-05-17] MEDS ORDERED: Acetaminophen 325 MG TAB PO PRN (00:07)
--- NOTE | 2020-05-17 00:36 | PDOC.HHP ---
Hospitalist HPI - History of Present Illness Fever and hypoxia History of Present Illness: Patient states he has had shortness of breath for several months and has not had any worsening in recent days. He is chronically breathless but able to remain somewhat active at home. He states the reason for seeing his primary care physician today was due to a fever he developed this week and recurred again today. While he was in clinic he was noted to be hypoxic in the 60s which prompted his transfer to the ED. He denies any cough or hemoptysis. States he has a history of DVTs for which he is on Eliquis but has never been diagnosed with a PE. Denies any chest pain. He has known GE junction adenocarcinoma and is under the care of Dr. Pandya. He completed chemoradiation therapy in 05/2019 and has been off treatment since then. He apparently has been undergoing serial endoscopies and told he has microscopic disease on biopsies taken from last EGD done in 12/2019. He states there are plans to discuss his case with radiation oncology to see if any further radiation treatments could be done. He had a PET scan done 01/07/2020 that showed mild interval growth of a right cervicothoracic junction lymph node with mild FDG uptake concerning for possible metastasis. Also noted at that time were moderate to severe groundglass densities through out mid and lower lung zones bilaterally, worse than prior imaging. ED COURSE: He had an EKG done in the ED showing a paced rhythm, HR of 72. Patient given aspirin 81 mg in the [facility]. He had a CXR done that showed findings suspicious for pnuemonia, therefore started on IV antibiotics (Vanc + Cefepime). Labs notable for trop of 0.031 and BNP of 2024.7. Rapid testing for COVID negative. PAST MEDICAL HISTORY: 1. CHF. 2. Afib. 3. GERD. 4. Hyperlipidemia. 5. Hypertension. 6. COPD. 7. GEJ adenocarcinoma. 8. Bladder cancer. 9. Anemia, requiring multiple transfusions in the past. PAST SURGICAL HISTORY: 1. Ablation x 2. 2. Pacemaker/defib. 3. Artificial bladder. 4. Bladder and prostate resection. 5. Nephrectomy (Right). 6. EGD 05/2019 showed residual nodule at GEJ, biopsy benign. 7. EGD 12/28/2019, 3 mm nodule at GEJ, biopsied. Fibrosis seen in distal esophagus secondary to radiation treatment. Dilated from 15 mm to 18 mm. SOCIAL HISTORY: Patient denies alcohol use, Patient denies drug use, Patient has no smoking history, Lives at home, with family FAMILY HISTORY: Noncontributory. ALLERGIES: 1. Bacitracin. 2. Bactrim. 3. Codeine. 4. Erythromycin. 5. Latex. 6. Levaquin. 7. Phenergan. 8. Sulfa. 9. Promethazine. 10. Trimethoprim. CURRENT MEDICATIONS: Advair Lovaza 1 g Oral once a day. Potassium chloride 20 mEq Oral once a day. ZyrTEC 10 mg Oral once a day. Centrum Silver Vitamin C 500 mg 1 tab(s) Oral once a day. Amiodarone 200 mg Oral 2 times a day. Protonix 40 mg Oral 2 times a day. Calcitriol 0.25 mcg 1 tab(s) Oral once a day. Simvastatin 20 mg Oral once a day. Aspirin 81 mg Oral once a day. Eliquis 5 mg Oral BID. Isosorbide [id number] mg Oral once a day. Carvedilol 6.25 mg Oral 2 times a day. Furosemide 60 mg Oral once a day. - Exam General Appearance: ill appearing General - other findings: BP: 122/76, Pulse: 68, Resp: 20, Pain: 0, O2 sat: 100 on (2L Oxygen), Eye: PERRL, anicteric sclera ENT: normocephalic atraumatic, no oropharyngeal lesions Neck: supple, symmetric, no lymphadenopathy Heart: RRR Heart - other findings: Port to right upper chest, AICD to left upper chest Respiratory: CTAB, normal chest expansion, tachypneic Respiratory - other findings: crackles at the left lung base, breathing slightly labored when speaking Gastrointestinal: soft, non-tender, no guarding, no rigidity, distended Extremities: 1+ LE edema (left leg) Extremities - other findings: Significant swelling in RLE, chronic but worse from baseline per patient. Skin: no rashes Neurological: cranial nerve grossly intact, normal sensation to touch Musculoskeletal: normal tone, normal strength, no muscle wasting Psychiatric: normal affect, normal behavior, A&O x 3 Hospitalist Results - Labs Lab results: Troponin I 0.018 ng/mL (< 0.028) 05/16/20 21:42 SARS-CoV-2 Rap RNA(RT-PCR) Not Detected (NotDetected) 05/16/20 22:52 Hospitalist H&P A/P - Problem (1) Chronic shortness of breath Code(s): R06.02 - SHORTNESS OF BREATH Status: Acute (2) Hypoxia Code(s): R09.02 - HYPOXEMIA Status: Acute (3) Fever Code(s): R50.9 - FEVER, UNSPECIFIED Status: Acute (4) Pneumonia Code(s): J18.9 - PNEUMONIA, UNSPECIFIED ORGANISM Status: Acute (5) Right leg swelling Code(s): M79.89 - OTHER SPECIFIED SOFT TISSUE DISORDERS Status: Chronic (6) History of deep vein thrombosis Code(s): Z86.718 - PERSONAL HISTORY OF OTHER VENOUS THROMBOSIS AND EMBOLISM Status: Chronic (7) Gastroesophageal cancer Code(s): C16.0 - MALIGNANT NEOPLASM OF CARDIA Status: Chronic (8) Diabetes mellitus Code(s): E11.9 - TYPE 2 DIABETES MELLITUS WITHOUT COMPLICATIONS Status: Chronic Qualifiers: Diabetes mellitus type: type 2 (9) COPD (chronic obstructive pulmonary disease) Status: Chronic (10) Chronic atrial fibrillation Code(s): I48.20 - CHRONIC ATRIAL FIBRILLATION, UNSPECIFIED Status: Chronic (11) AICD (automatic cardioverter/defibrillator) present Code(s): Z95.810 - PRESENCE OF AUTOMATIC (IMPLANTABLE) CARDIAC DEFIBRILLATOR Status: Chronic (12) Hypertension Code(s): I10 - ESSENTIAL (PRIMARY) HYPERTENSION Status: Chronic (13) Bladder cancer Status: Chronic (14) Chronic kidney disease Code(s): N18.9 - CHRONIC KIDNEY DISEASE, UNSPECIFIED Status: Chronic Qualifiers: Chronic kidney disease stage: stage 3 (moderate) Qualified Code(s): N18.3 - Chronic kidney disease, stage 3 (moderate) (15) Chronic systolic heart failure Code(s): I50.22 - CHRONIC SYSTOLIC (CONGESTIVE) HEART FAILURE Status: Chronic (16) Hyperlipidemia Code(s): E78.5 - HYPERLIPIDEMIA, UNSPECIFIED Status: Chronic - Plan Plan: Cardiac monitoring. Continue to trend troponins. Monitor O2 sats. ABG ordered. Given hx of malignancy, hx of DVTs, and increased RLE swelling, obtain d-dimer (has had recent d-dimer that was normal). If elevated will need VQ scan due to CKD. Will give full dose of Lovenox 1 mg/kg and hold Eliquis. Continue IV antibiotics, pharmacy to assist with renal dosing. Blood cultures ordered. Would benefit from repeat CT Chest to confirm pneumonia further evaluate groundglass opacities. COVID testing (rapid testing was negative in ED) Continue precautions. Consider Home O2 eval. Monitor BP and glucose. Continue Lasix. Echo ordered. ISS initiated. Reconcile home medications once verified. Continue PPI. Speech therapy consult to assess for risk of aspiration given need for esophageal dilatation due to xrt induced stricture. PT/OT consult. Surrogate decision maker is his : Karely De La Rosa.
[2020-05-17 02:38] LABS: Actual Bicarbonate (HCO3a) 18.3 mEq/L (22-28); Base Excess (BEa) -5.8 mEq/L (-2.0 to +3.0); CO2 Tension 31.2 mmHg (35.0-45.0); Calcium, Ionized (arterial) 1.16 mmol/L (1.12-1.30); Carboxyhemoglobin (COHb) 0.9 gm% (0.0-3.0); O2 Tension (PaO2), arterial 67.4 mmHg (> 70.0); Potassium - ABG Lab 3.98 mmol/L (3.70-5.30); pH, Arterial 7.39 (7.35-7.45)
[2020-05-17 02:40] LABS: Puncture Site RRA
[2020-05-17 02:47] VITALS: BMI 29.5
[2020-05-17] MEDS ORDERED: Cefepime 2 GM in Sodium Chloride 0.9% 100 ML IVPB SCH (03:00)
[2020-05-17] MEDS ORDERED: Enoxaparin Sodium 100 MG/ML SYRINGE SC SCH ×2 (03:15→21:00)
[2020-05-17] MEDS ORDERED: Vancomycin HCl 1.75 GM in Sodium Chloride 0.9% 500 ML IVPB SCH (03:30)
[2020-05-17 04:29] LABS: #Eosinphils 0.2 thou/uL (0.0-0.7); #Lymphocytes 0.2 thou/uL (1.20-3.40); #Monocytes 0.6 thou/uL (0.11-0.59); #Neutrophils 6.5 thou/uL (1.40-6.50); %Basophils 0.6 % (0.0-1.0); %Eosinophils 2.7 % (0.0-10.0); %Monocytes 7.3 % (0.0-10.0); %Neutrophils 86.4 % (42.0-75.0); Hemoglobin 9.8 g/dL (14.0-18.0); Mean Corpuscular HGB CONC 32.1 g/dL (32.0-36.0); Mean Corpuscular Hemoglobin 35.2 pg (27.0-31.0); Platelet Count 184 thou/uL (130-400); RBC Distribution Width 16.8 % (11.5-14.5); White Blood Cell (WBC) Count 7.6 thou/uL (4.8-10.8)
[2020-05-17 04:46] LABS: Anion Gap 16 mmol/L (10-20); BUN (Urea Nitrogen) 39 mg/dL (8.4-25.7); Calc. Creatinine Clearance 36 mL/min (70-130); Calcium 8.3 mg/dL (7.8-10.44); Carbon Dioxide 19 mmol/L (23-31); Chloride 110 mmol/L (98-107); Estimated GFR-MDRD 28; Glucose 96 mg/dL (83-110); Potassium 4.2 mmol/L (3.5-5.1); Sodium 141 mmol/L (136-145)
[2020-05-17 04:52] LABS: Troponin I 0.035 ng/mL (< 0.028)
[2020-05-17] MEDS: Mometasone 200 MCG/Formoterol 5 MCG 120 PUFF INHALER INH SCH (07:13)
--- NOTE | 2020-05-17 08:09 | ULT ---
PRELIMINARY REPORT/[facility]/EMERGENCY AFTER HOURS PROCEDURE: This report was discussed with Fang Davis RN by Thuy Madera on May 17, 2020 02:21:00 CDT. Ishmael jeff electronically signed by Thuy Madera on May 17, 2020 2:22:11 AM CDT EXAM: US Duplex bilateral Lower Extremity Veins. CLINICAL HISTORY: BLE pitting edema, HX: LLE DVT, pt. on blood thinner TECHNIQUE: Real-time ultrasound scan of the veins of the bilateral lower extremity with color Doppler flow, spectral waveform analysis and compression. COMPARISON: None provided. FINDINGS: DEEP VEINS: On the RIGHT: The common femoral, femoral, and popliteal veins are echolucent and ortiz sible. These vessels demonstrate respiratory variation and augmentation. There is normal color Dopple r flow throughout. The visualized calf veins are also patent. On the LEFT: The proximal, mid and distal femoral veins are echolucent and compressible. These vessel s demonstrate respiratory variation and augmentation. There is normal color Doppler flow throughout. The visualized calf veins are also patent. Thin linear thrombus appears to be present at the junctio n of the common femoral vein and greater saphenous vein as well as the distal portion of the poplitea l vein, with persisting flow. SUPERFICIAL VEINS: The visualized greater saphenous vein is patent. SOFT TISSUES: No popliteal fossa cyst or other abnormalities. IMPRESSION: No evidence for DVT on the RIGHT. Nonocclusive thrombus is noted in the LEFT common femo ral vein and LEFT popliteal vein regions. ELECTRONICALLY SIGNED BY: Giles Lang MD May 17, 2020 2:18:07 AM CDT FINAL REPORT EMERGENCY AFTER HOURS STUDY ULTRASOUND WITH DOPPLER DUPLEX VENOUS LOWER EXTREMITIES BILATERAL: HISTORY: A 74-year-old male with bilateral lower extremity edema, history of prior DVT. TECHNIQUE: Color flow Doppler, spectral waveform analysis of pulsed Doppler, and santos-scale imaging with ortiz roman and augmentation, were used to evaluate the bilateral common femoral, femoral, popliteal, commodity manager ior tibial, and superficial femoral, veins; and the proximal portions of the profunda femoral and gre ater saphenous, veins. FINDINGS: There is no DVT in the right lower extremity. There is nonocclusive DVT at the junction between the left greater saphenous vein and the common femo ral vein, and also at the distal portion of the left popliteal vein. There is also edema in the soft tissues of the bilateral lower extremities. Agree with preliminary report by [facility]. IMPRESSION: 1. Nonocclusive partial thrombus in portions of the left lower extremity veins. 2. Soft tissue edema in bilateral lower extremities. JN R POS: OFF
[2020-05-17] MEDS: Carvedilol 6.25 MG TAB PO SCH ×2 (08:31→22:14)
[2020-05-17] MEDS: Folic Acid 1 MG TAB PO SCH (08:32)
[2020-05-17] MEDS: Aspirin 81 mg Enteric Coated Tablet PO SCH (08:32)
[2020-05-17] MEDS: pyridOXINE 50 MG (B6) TAB PO SCH (08:32)
[2020-05-17] MEDS: Loratadine 10 MG TAB PO SCH (08:32)
[2020-05-17] MEDS: Ascorbic Acid 500 mg Chewable Tablet PO SCH (08:33)
[2020-05-17] MEDS: Amiodarone 200 MG TAB PO SCH ×2 (08:33→22:14)
[2020-05-17] MEDS: Cyanocobalamin (Vitamin B-12) 1,000 MCG TAB PO SCH (08:34)
[2020-05-17] MEDS ORDERED: Furosemide 40 MG TAB PO SCH (09:00)
[2020-05-17] MEDS ORDERED: Famotidine 20 MG TAB PO SCH (09:00)
--- NOTE | 2020-05-17 18:39 | PDOC.HOSPP ---
- Subjective Subjective: Patient was seen examined at bedside. Patient complained of some cough, nonproductive. No fever. - Objective Vital Signs & Weight: Vital Signs (12 hours) Temp Pulse Pulse Pulse Resp BP BP 05/17/20 17:00 99.1 F 70 16 05/17/20 14:01 69 72 114/59 L 05/17/20 13:59 69 72 114/59 L 05/17/20 12:01 97.7 F 72 15 05/17/20 08:31 119/58 L 05/17/20 08:04 98.8 F 90 14 05/17/20 07:29 98.7 F 73 16 05/17/20 07:13 74 16 BP BP BP Pulse Ox Pulse Ox Pulse Ox 05/17/20 17:00 92 L 05/17/20 14:01 123/63 91 L 92 L 05/17/20 13:59 123/63 91 L 92 L 05/17/20 12:01 132/63 91 L 05/17/20 08:31 05/17/20 08:04 124/56 L 98 05/17/20 07:29 119/58 L 92 L 05/17/20 07:13 Weight Weight 200 lb 1 oz I&O: 05/16/20 05/17/20 05/18/20 06:59 06:59 06:59 Intake Total 680 Balance 680 Result Diagrams: 05/17/20 04:09 05/17/20 04:09 Radiology Reviewed by me: Yes EKG Reviewed by me: Yes Hospitalist ROS - Medication Medications: Active Medications Generic Name Dose Route Start Last Admin Trade Name Freq PRN Reason Stop Dose Admin Amiodarone HCl 200 mg 05/17/20 09:00 05/17/20 08:33 Amiodarone 200 Mg Tab PO 200 mg BID ANGÉLICA Administration Ascorbic Acid 500 mg 05/17/20 09:00 05/17/20 08:33 Ascorbic Acid 500 Mg Chewable Tablet PO 500 mg DAILY ANGÉLICA Administration Aspirin 81 mg 05/17/20 09:00 05/17/20 08:32 Aspirin 81 Mg Enteric Coated Tablet PO 81 mg DAILY ANGÉLICA Administration Carvedilol 6.25 mg 05/17/20 09:00 05/17/20 08:31 Carvedilol 6.25 Mg Tab PO 6.25 mg BID ANGÉLICA Administration Cyanocobalamin 500 mcg 05/17/20 09:00 05/17/20 08:34 Cyanocobalamin (Vitamin B-12) 1,000 Mcg Tab PO 500 mcg DAILY ANGÉLICA Administration Folic Acid 1 mg 05/17/20 09:00 05/17/20 08:32 Folic Acid 1 Mg Tab PO 1 mg DAILY ANGÉLICA Administration Loratadine 10 mg 05/17/20 09:00 05/17/20 08:32 Loratadine 10 Mg Tab PO 10 mg DAILY ANGÉLICA Administration Mometasone Furoate/Formoterol Fumar 2 puff 05/17/20 07:00 05/17/20 07:13 Mometasone 200 Mcg/Formoterol 5 Mcg 120 Puff Inhaler INH 2 puff DAILY-RT ANGÉLICA Administration Pantoprazole Sodium 40 mg 05/17/20 09:00 05/17/20 08:31 Pantoprazole 40 Mg Tab PO 40 mg BID ANGÉLICA Administration Pyridoxine HCl 100 mg 05/17/20 09:00 05/17/20 08:32 Pyridoxine 50 Mg (B6) Tab PO 100 mg DAILY ANGÉLICA Administration - Exam General Appearance: NAD, awake alert Eye: PERRL, anicteric sclera ENT: normocephalic atraumatic Neck: supple Heart: RRR, no murmur Respiratory: rhonchi Gastrointestinal: soft Extremities: no cyanosis, no clubbing, no edema Skin: normal turgor Neurological: cranial nerve grossly intact Musculoskeletal: normal tone Psychiatric: normal affect Hosp A/P - Plan This is a pleasant 74 years old gentleman with multiple comorbidities including chronic systolic heart failure, A. fib, GERD, dyslipidemia, hypertension, COPD, GE junction adenocarcinoma, history of bladder cancer, history of DVT on Eliquis, who presented to his PCP office with worsening dyspnea. Patient was subsequently sent to the ED after he was noted hypoxic, with his O2 sat in the 60s. Pneumonia --We will continue cefepime, and vancomycin for healthcare associated pneumonia. --Continue breathing treatment --check CT chest without contrast to further eval his lung bansal Dyspnea --Likely multifactorial including CHF exacerbation, pneumonia --Continue breathing treatment and abx, diuretics. Pt is already on Eliquis for DVT, I dont we need V/Q as it is not very high yield given his underlying conditions; beside it won't likely change the mgt since he is fully antico agulated Acute on chronic systolic heart failure with EF of 10-20% --will start IV Lasix, monitor I&O, daily weight --Follow up Echo Hx DVT --cont Eliquis Chronic Afib - rate controlled --cont Eliquis/BB DM 2 --cont ISS CKD 3 --followed by Dr. Brody
[2020-05-17] MEDS ORDERED: Furosemide 40 MG/4 ML VIAL SLOW IVP SCH (18:45)
[2020-05-17] MEDS ORDERED: Apixaban 5 MG TAB PO SCH (21:00)
--- NOTE | 2020-05-17 21:03 | CT ---
CT CHEST WITHOUT CONTRAST: 05/17/20 HISTORY: Pneumonia, COPD, shortness of breath, esophageal cancer, bladder cancer. FINDINGS: Absence of IV contrast reduces the sensitivity of the exam particularly for evaluation of mediastinal hilar and vascular structures. There has been interval development of an irregular mass-like density in the left upper lobe measuring 8.5 cm in the CC dimension which is new since the PET scan of . There has been interval increase in size of the prevascular mediastinal lymph nodes measuring up to 10 mm in short axis diameter. A 13 mm subcarinal lymph node is also seen. Changes of centrilobula r emphysema are again noted. There is a small right and moderate left pleural effusion with adjacent atelectatic changes. No pneumothoraces are seen. No pericardial effusion is identified. There are vascular calcifications without evidence of aneurysmal dilatation of the thoracic aorta. Up per abdominal tomograms demonstrate cholelithiasis and increased attenuation of the liver, which was also noted on the previous study which could be seen in hemochromatosis. There are degenerative changes in the spine. There are changes of right sided nephrectomy and left re nal cyst. IMPRESSION: 1. New left upper lobe lung mass suspicious for malignancy. 2. Bilateral pleural effusions, left larger than right. 3. Mediastinal lymphadenopathy. POS: OFF
[2020-05-17] MEDS: Apixaban 5 MG TAB PO SCH (22:14)
[2020-05-17] MEDS: Atorvastatin Calcium 10 MG TAB PO SCH (22:14)
[2020-05-17] MEDS: Calcitriol 0.25 MCG CAP PO SCH (22:14)
[2020-05-18] MEDS ORDERED: Vancomycin 1 GM in Premix Bag 1 BAG IVPB SCH (03:00)
[2020-05-18] MEDS: Cefepime 2 GM in Sodium Chloride 0.9% 100 ML IVPB SCH (03:28)
[2020-05-18 04:31] LABS: #Basophils 0.1 thou/uL (0.0-0.2); #Eosinphils 0.1 thou/uL (0.0-0.7); #Lymphocytes 0.3 thou/uL (1.20-3.40); #Monocytes 0.6 thou/uL (0.11-0.59); #Neutrophils 5.9 thou/uL (1.40-6.50); %Basophils 1.1 % (0.0-1.0); %Eosinophils 1.9 % (0.0-10.0); %Monocytes 7.9 % (0.0-10.0); %Neutrophils 85.1 % (42.0-75.0); Hemoglobin 9.1 g/dL (14.0-18.0); Mean Corpuscular HGB CONC 31.5 g/dL (32.0-36.0); Mean Corpuscular Hemoglobin 34.6 pg (27.0-31.0); Platelet Count 186 thou/uL (130-400); Red Blood Cell (RBC) Count 2.62 mill/uL (4.70-6.10); White Blood Cell (WBC) Count 6.9 thou/uL (4.8-10.8)
[2020-05-18 04:50] LABS: Hemoglobin 9.2 g/dL (14.0-18.0); Platelet Count 183 thou/uL (130-400)
[2020-05-18 04:53] LABS: Anion Gap 13 mmol/L (10-20); BUN (Urea Nitrogen) 36 mg/dL (8.4-25.7); Calc. Creatinine Clearance 35 mL/min (70-130); Calcium 8.1 mg/dL (7.8-10.44); Carbon Dioxide 21 mmol/L (23-31); Chloride 110 mmol/L (98-107); Estimated GFR-MDRD 28; Glucose 107 mg/dL (83-110); Magnesium 1.9 mg/dL (1.6-2.6); Potassium 3.8 mmol/L (3.5-5.1); Sodium 140 mmol/L (136-145)
[2020-05-18] MEDS: Mometasone 200 MCG/Formoterol 5 MCG 120 PUFF INHALER INH SCH (07:03)
[2020-05-18] MEDS: Budesonide 0.5 MG/2 ML NEB NEB SCH ×2 (07:04→18:43)
[2020-05-18] MEDS ORDERED: Furosemide 40 MG/4 ML VIAL SLOW IVP SCH (09:00)
--- NOTE | 2020-05-18 09:18 | PDOC.HOSPP ---
- Subjective Subjective: Pt reports his SOB is about the same or slightly better since he was placed on IV diuresis. CT chest results came back and reviewed Renal function stable, followed by Dr. Brody Cardiology Dr. Scott, does not come to this hospital Oncology Dr. Pandya, complete chemotherapy last apr-may last years, but didn't complete, pt states his body didn't tolerate it. BNP elevated. no white count no fever noted - Objective Vital Signs & Weight: Vital Signs (12 hours) Temp Pulse Resp BP BP Pulse Ox 05/18/20 07:40 98.9 F 73 17 111/53 L 93 L 05/18/20 07:04 80 14 05/18/20 03:36 98.5 F 73 18 91/52 L 95/53 L 92 L 05/18/20 02:17 16 05/17/20 21:53 71 20 88 L Weight Weight 198 lb 3 oz I&O: 05/17/20 05/18/20 05/19/20 06:59 06:59 06:59 Intake Total 1660 Output Total 1650 Balance 10 Result Diagrams: 05/18/20 03:57 05/18/20 03:57 Radiology Reviewed by me: Yes EKG Reviewed by me: Yes Hospitalist ROS - Medication Medications: Active Medications Generic Name Dose Route Start Last Admin Trade Name Freq PRN Reason Stop Dose Admin Albuterol/Ipratropium 3 ml 05/17/20 22:30 05/18/20 07:04 Ipratropium/Albuterol Sulfate 3 Ml Neb NEB 3 ml [id number] ANGÉLICA Administration Amiodarone HCl 200 mg 05/17/20 09:00 05/17/20 22:14 Amiodarone 200 Mg Tab PO 200 mg BID ANGÉLICA Administration Apixaban 5 mg 05/17/20 21:00 05/17/20 22:14 Apixaban 5 Mg Tab PO 5 mg BID ANGÉLICA Administration Ascorbic Acid 500 mg 05/17/20 09:00 05/17/20 08:33 Ascorbic Acid 500 Mg Chewable Tablet PO 500 mg DAILY ANGÉLICA Administration Aspirin 81 mg 05/17/20 09:00 05/17/20 08:32 Aspirin 81 Mg Enteric Coated Tablet PO 81 mg DAILY ANGÉLICA Administration Atorvastatin Calcium 10 mg 05/17/20 21:00 05/17/20 22:14 Atorvastatin Calcium 10 Mg Tab PO 10 mg HS ANGÉLICA Administration Budesonide 0.5 mg 05/18/20 06:30 05/18/20 07:04 Budesonide 0.5 Mg/2 Ml Neb NEB 0.5 mg BID-RT ANGÉLICA Administration Calcitriol 0.25 mcg 05/17/20 21:00 05/17/20 22:14 Calcitriol 0.25 Mcg Cap PO 0.25 mcg HS ANGÉLICA Administration Cyanocobalamin 500 mcg 05/17/20 09:00 05/17/20 08:34 Cyanocobalamin (Vitamin B-12) 1,000 Mcg Tab PO 500 mcg DAILY ANGÉLICA Administration Folic Acid 1 mg 05/17/20 09:00 05/17/20 08:32 Folic Acid 1 Mg Tab PO 1 mg DAILY ANGÉLICA Administration Cefepime HCl 2 gm/ Sodium 100 mls @ 200 mls/hr 05/18/20 03:00 05/18/20 03:28 Chloride IVPB 100 mls 0300 ANGÉLICA Administration Loratadine 10 mg 05/17/20 09:00 05/17/20 08:32 Loratadine 10 Mg Tab PO 10 mg DAILY ANGÉLICA Administration Mometasone Furoate/Formoterol Fumar 2 puff 05/17/20 07:00 05/18/20 07:03 Mometasone 200 Mcg/Formoterol 5 Mcg 120 Puff Inhaler INH 2 puff DAILY-RT ANGÉLICA Administration Pantoprazole Sodium 40 mg 05/17/20 09:00 05/17/20 22:14 Pantoprazole 40 Mg Tab PO 40 mg BID ANGÉLICA Administration Pyridoxine HCl 100 mg 05/17/20 09:00 05/17/20 08:32 Pyridoxine 50 Mg (B6) Tab PO 100 mg DAILY ANGÉLICA Administration - Exam General Appearance: NAD ENT: normocephalic atraumatic Neck: supple Heart: RRR Respiratory: rhonchi, wheezes Gastrointestinal: soft, non-tender Extremities: no cyanosis, 1+ LE edema Skin: normal turgor Neurological: cranial nerve grossly intact Musculoskeletal: normal tone Psychiatric: normal affect Hosp A/P - Plan This is a pleasant 74 years old gentleman with multiple comorbidities including chronic systolic heart failure, A. fib, GERD, dyslipidemia, hypertension, COPD, GE junction adenocarcinoma, history of bladder cancer, history of DVT on Eliquis, who presented to his PCP office with worsening dyspnea. Patient was subsequently sent to the ED after he was noted hypoxic, with his O2 sat in the 60s, he was initially admitted for presumed PNA. Acute on chronic systolic heart failure with EF of 10-20% --Cont IV Lasix, monitor I&O, daily weight --Followed by Dr. Scott --Follow renal function closely. Hx nephrectomy with CKD3 Dyspnea - likely multifactorial, lung mass, CHF/pleural effusion --cont IV diuresis. breathing treatment --Pul consult for further eval, possible thoracocentesis to help with his dyspn ea if not improved with diuresis Pneumonia --Initial chest CXR showed possible PNA, but his symptoms and clinical findings suggestive of volume overload --CT chest reviewed. --Will d/c Vanc, cont Cefepime for now for possible post-obstructive PNA, although I doubt as he has no leukocytosis or fever. Check SED/CRP in AM Left Upper Lobe Lung Mass - 8.3 cm, NEW, comparing to last PET scan on 01/04 --concerning for possible malignancy --Pul consult B/L Pleural Effusion - L>R --Pul consult for new lung mass and eval of pleural effusion to see if thoracocentesis (therapeutic/diagnostic) if it is necessary --cont IV diuresis as above. Hx of GE junction Adenocarcinoma --followed by Dr Hill, last chemotherapy in May 2019. Incomplete Rx per pt --Consult Oncology given new Lung mass Hx DVT --cont Eliquis Chronic Afib - rate controlled --cont Eliquis/BB DM 2 --cont ISS CKD 3 with hx of nephrectomy --Cr stable. avoid nephrotoxic agent. --followed by Dr. Brody
[2020-05-18] MEDS: Carvedilol 6.25 MG TAB PO SCH (09:54)
[2020-05-18] MEDS: Cyanocobalamin (Vitamin B-12) 1,000 MCG TAB PO SCH (09:56)
[2020-05-18] MEDS: Apixaban 5 MG TAB PO SCH ×2 (09:56→20:24)
[2020-05-18] MEDS: pyridOXINE 50 MG (B6) TAB PO SCH (09:56)
[2020-05-18] MEDS: Ascorbic Acid 500 mg Chewable Tablet PO SCH (09:56)
[2020-05-18] MEDS: Amiodarone 200 MG TAB PO SCH ×2 (09:56→20:24)
[2020-05-18] MEDS: Folic Acid 1 MG TAB PO SCH (09:57)
[2020-05-18] MEDS: Aspirin 81 mg Enteric Coated Tablet PO SCH (09:57)
[2020-05-18] MEDS: Loratadine 10 MG TAB PO SCH (09:57)
[2020-05-18] MEDS: Furosemide 40 MG/4 ML VIAL SLOW IVP SCH ×2 (09:58→20:24)
[2020-05-18] MEDS: BACILLUS COAGULANS PO SCH ×2 (10:29→10:30)
--- NOTE | 2020-05-18 10:45 | CON ---
DATE OF CONSULTATION: May 18, 2020 SUBJECTIVE: Mr. De La Rosa is a 74-year-old white male, who was initially admitted for fever and hypoxemia. He reported to his PCP and was noted to be hypoxemic at that time. He was sent to the ER for further evaluation. In the ER, he was found on chest x-ray to have a possible pneumonia. He has now been admitted for further management. During the subsequent workup, a CAT scan of the chest was done and it showed a new left upper lobe lung mass suspicious for malignancy. He also underwent a Doppler of his lower extremities. Findings of nonocclusive partial thrombus were noted on the left lower extremities. Please note, I was seen in the Renal Clinic back on April 26 and at that time, he was complaining of some worsening leg edema. He was resumed back on Lasix at 60 mg one tablet once a day. For now, we are now consulting this patient for further management of his chronic renal failure from a presumed hypertensive nephropathy. REVIEW OF SYSTEM: Chronic shortness of breath, chronic leg edema. No nausea. No vomiting. Positive for fever or chills. No syncopal episode. Appetite and energy level are fair. No headache. No diplopia. No dysuria. No urinary frequency. PAST MEDICAL HISTORY: 1. Includes chronic renal failure from a presumed hypertensive nephropathy. 2. Gastric/esophageal carcinoma. 3. History of secondary hyperparathyroidism, history of cardiomyopathy-EF of 25% to 30%, chronic lung disease, status post CHF, DJD, bladder cancer, in remission. PAST SURGICAL HISTORY: Includes the following; status post bladder resection with ileal conduit placement, status post cystoscopy, status post right nephrectomy, status post prostatectomy, status post colonoscopy, status post upper GI endoscopy, status post hernia repair of abdominal wall hernia, status post AICD placement, and status post cardiac cath. SOCIAL HISTORY: The patient , lives in the [place] area. No drug abuse. No alcohol. No smoking. Status post multiple blood transfusion. FAMILY HISTORY: No family history of ESRD. ALLERGIES: BACTRIM, CODEINE, ERYTHROMYCIN, LEVAQUIN, NEOMYCIN, AND PENICILLIN. FAMILY HISTORY: No family history of ESRD. TRAUMA: None. IMMUNIZATIONS: Up-to-date. HOSPITALIZATIONS: Please see past medical history. PHYSICAL EXAMINATION: VITAL SIGNS: Blood pressure is noted at 111/53, heart rate 73, respiratory rate 17, temperature 98.9, and O2 saturation 93%. GENERAL: The patient is awake, alert, and comfortable, not in overt distress. SKIN: Adequate turgor. HEENT: He has slightly pale conjunctivae. Anicteric sclerae. No neck mass. No carotid bruits. No JVD. CHEST: No deformities. LUNGS: Clear breath sounds. HEART: Normal sinus rhythm. No murmur. No gallops. No rubs. ABDOMEN: Globular, soft, and nontender. No masses. Positive for an ileal conduit. EXTREMITIES: Positive for edema. NEUROLOGIC: Awake and oriented to 3 spheres. Moving all extremities. No tremors. No asterixis. No ataxia. MEDICATIONS: Of May 18, 2020; 1. Amiodarone 200 mg p.o. b.i.d. 2. Apixaban 5 mg p.o. b.i.d. 3. Aspirin 81 mg tablet once a day. 4. Atorvastatin 10 mg at bedtime. 5. Budesonide neb treatment p.r.n. 6. Calcitriol 0.25 mcg daily. 7. Carvedilol 6.25 mg p.o. b.i.d. 8. Cefepime 2 g IV daily. 9. Famotidine 20 mg once a day. 10. Furosemide 40 mg IV b.i.d. 11. DuoNeb q.4 hours p.r.n. 12. Imdur 15 mg daily. 13. Advair P.r.n. 14. Protonix 40 mg tablet b.i.d. 15. Thyroxine 100 mg once a day. 16. Vancomycin as directed. LABORATORY DATA: Of May 18, 2020; white count 6.9 and hemoglobin 9.1. Sodium 140, potassium 3.8, chloride 110, carbon dioxide 21, BUN 36, creatinine 2.33, calcium 8.1, and magnesium 1.9. Troponin I 0.035. CT scan of the chest shows findings of the left upper lobe lung mass. ASSESSMENT AND PLAN: 1. Chronic renal failure from hypertensive nephropathy-the patient's renal function is at baseline. Previously, his creatinine has gone up to as high as 2.9. The 2.3 is near baseline. Continue current diuretic regimen. Adjust diuretics depending on how the renal function will be in the next several days. There is no indication for him to undergo any emergent hemodialysis at the present time. 2. New left upper lobe lung mass-this could be representing a metastatic lesion. He does have a history of multiple cancers. Dr. Pandya is following up this patient. 3. Deep venous thrombosis. Currently, on Eliquis. 4. Borderline anemia. We will continue to observe. Hold off Epogen due to recent development of deep vein thrombosis with this patient. 5. Congestive heart failure/cardiomyopathy, currently on furosemide 40 mg IV q.12. continue supportive care. He does have a decreased ejection fraction of about 25% to 30%. 6. Secondary hyperparathyroidism, currently on calcitriol. 7. Overall prognosis remains guarded. Job ID: [id number] [facility]
[2020-05-18] MEDS ORDERED: Bumetanide 1 MG/4 ML VIAL IVP SCH (11:30)
[2020-05-18 11:51] LABS: Actual Bicarbonate (HCO3a) 19.1 mEq/L (22-28); Base Excess (BEa) -4.7 mEq/L (-2.0 to +3.0); CO2 Tension 30.7 mmHg (35.0-45.0); Calcium, Ionized (arterial) 1.14 mmol/L (1.12-1.30); Carboxyhemoglobin (COHb) 1.2 gm% (0.0-3.0); Hemoglobin (Hb) 10.1 g/dL (14.0-18.0); Potassium - ABG Lab 3.63 mmol/L (3.70-5.30); pH, Arterial 7.41 (7.35-7.45)
[2020-05-18 11:53] LABS: ALV-art Gradient 199.425 mmHg (0-20); O2 Tension (PaO2), arterial 47.4 mmHg (> 70.0); Puncture Site RRA
[2020-05-18] MEDS ORDERED: guaiFENesin ER 600 MG TAB PO SCH (12:00)
--- NOTE | 2020-05-18 12:17 | RAD ---
SINGLE VIEW CHEST: Date: 05/18/2020 COMPARISON: 05/16/2020. HISTORY: Respiratory distress. FINDINGS: Single view of the chest shows an enlarged cardiomediastinal silhouette. The MediPort and pacemaker a re unchanged in position. There are small bilateral pleural effusions. Bibasilar atelectasis versus i nfiltrates is seen. There is a mass-like region projecting over the left upper lobe, unchanged. IMPRESSION: Stable exam. POS: [facility]ESA
[2020-05-18] MEDS: Albumin 25% 25 GM/100 ML BOT IVPB SCH (13:14)
[2020-05-18] MEDS ORDERED: guaiFENesin/Codeine Phosphate 200 mg/20 mg 10 ml UD Cup PO PRN (14:42)
[2020-05-18] MEDS: Benzonatate 100 MG CAP PO PRN (14:59)
--- NOTE | 2020-05-18 19:32 | CON ---
DATE OF CONSULTATION: REASON FOR CONSULTATION: Esophageal cancer. HISTORY OF PRESENT ILLNESS: Mr. De La Rosa is a 74-year-old gentleman with past medical history of high-grade transitional-cell carcinoma, DVT, and adenocarcinoma at the EG junction. He presented to the emergency room with shortness of breath, worsening over the last several days. He actually has chronic shortness of breath and has been seen by Dr. Casillas, ENT at [facility], treated with antibiotics. In the emergency room, he underwent a CT of the chest, which showed leoncio 8.5 cm irregular mass in the left upper lobe of the lung. He had prevascular mediastinal lymphadenopathy. He had subcarinal lymphadenopathy. There was small right and moderate left pleural effusion. The patient has a history of transitional-cell carcinoma, cured with surgery in 2001. He was then diagnosed with HER2 negative adenocarcinoma in January 2019. He underwent radio-chemotherapy and had a negative PET and EGD in May 2019, and in December, he had an EGD, which showed possible recurrence of his cancer. However, his PET was negative at that time. He declined endoscopic resection and has been followed by Dr. Pandya and Dr. Herrera. He was seen at bedside in [facility] with his present. He is on high-flow O2. He complains of cough and right lower extremity swelling. Denies any chest pain, hemoptysis, or dysphagia. PAST MEDICAL HISTORY: 1. Transitional-cell carcinoma diagnosed in 1999. 2. Adenocarcinoma of the EG junction. 3. Coronary artery disease. 4. COPD. 5. History of DVT. PAST SURGICAL HISTORY: 1. Cystoprostatectomy. 2. Nephrostomy tube placement. 3. Right nephrectomy. 4. Pacemaker defibrillator. 5. Cardiac ablation procedure. 6. Multiple EGDs and biopsies. ALLERGIES: BACTRIM, CODEINE, ERYTHROMYCIN, LEVOFLOXACIN, AND SULFA. HOME MEDICATIONS: 1. Advair. 2. Amiodarone. 3. Calcitriol. 4. Carvedilol. 5. Eliquis. 6. Flonase. 7. Folic acid. 8. Lasix. 9. Lovaza. 10. Protonix. 11. Potassium chloride. FAMILY HISTORY: Father had bladder cancer. SOCIAL HISTORY: , lives with his spouse. No alcohol, tobacco, or illicit drug use. REVIEW OF SYSTEMS: A 10-point review of systems is negative except for noted in HPI. PHYSICAL EXAMINATION: VITAL SIGNS: Temperature 98.4, pulse is 70, respiratory rate 23, blood pressure is 124/57. He is 94% on high-flow 40% O2. GENERAL: A well-developed, well-nourished male, in no acute distress. HEENT: Normocephalic, atraumatic. Pupils are equal and reactive to light. NECK: Supple. CV: Regular rate and rhythm. LUNGS: Clear. ABDOMEN: Soft and nontender. Bowel sounds are positive. EXTREMITIES: He has 1+ right lower extremity edema. SKIN: No rash. HEMATOLOGICAL: No petechiae or purpura. NEUROLOGICAL: Nonfocal. PERTINENT LABORATORY DATA AND X-RAYS: Current WBCs 6.9, hemoglobin 9.1, hematocrit 28.8, platelet count is 186,000, 85% neutrophils, 4% lymphocytes. Sodium 140, potassium 3.8, chloride 110, CO2 is 21, BUN is 36, creatinine 2.33, calcium is 8.1, magnesium 1.9. Troponin 0.035. BNP is 2305. COVID PCR is negative. Radiology per history of present illness. ASSESSMENT: 1. New left upper lobe mass. 2. History of esophageal adenocarcinoma. DISCUSSION: The patient has been placed on high-flow O2. He is in the intermediate care unit. Pulmonary has been consulted. The patient wishes to pursue diagnosis. Given the unusual presentation of metastatic disease in esophageal adenocarcinoma. Dr. Pandya recommends a biopsy. This will likely need to be CT-guided needle biopsy. We will wait for Dr. Higgins's evaluation prior to ordering. He has been given medicines for his cough. He is on IV antibiotics. We will continue to follow with his hospital course. Thank you for the consult. Job ID: [id number] MTDD
[2020-05-18] MEDS: Calcitriol 0.25 MCG CAP PO SCH (20:24)
[2020-05-18] MEDS: guaiFENesin ER 600 MG TAB PO SCH (20:24)
[2020-05-18] MEDS: Atorvastatin Calcium 10 MG TAB PO SCH (20:24)
[2020-05-18] MEDS ORDERED: methylPREDNISolone Sod Succ/PF 125 MG/2 ML VIAL IVP SCH (21:45)
--- NOTE | 2020-05-19 01:31 | CON ---
DATE OF CONSULTATION: 05/18/2020 HISTORY OF PRESENT ILLNESS: Evert De La Rosa is a very pleasant 74-year-old, followed by Dr. Pandya. He presented with complaints of shortness of breath. He has been diuresed today and says he is feeling better. He is found to have a lung mass, we were consulted. PAST MEDICAL HISTORY: Remarkable for; 1. Esophageal cancer at his GE junction. He received chemoradiation and followup on endoscopy with biopsy showed ongoing cancer from what he tells me. He has declined resection and his doctors have been trying to decide what the next step would be. 2. History of transitional cell carcinoma in year 1999. 3. History of nephrectomy after a severe kidney infection, he tells me. 4. History of coronary artery disease. 5. History of COPD. 6. History of DVT. 7. History of cystoprostatectomy. 8. History of pacemaker defibrillator. 9. History of cardiac ablation. 10. History of congestive heart failure. 11. History of multiple endoscopies. ALLERGIES: HE REPORTS ALLERGIES TO BACTRIM, CODEINE, ERYTHROMYCIN, LEVAQUIN, SULFA. MEDICATIONS: Reviewed. SOCIAL HISTORY: He is currently nonsmoker, nondrinker. FAMILY HISTORY: Positive for cancer. REVIEW OF SYSTEMS: Ten points otherwise negative. PHYSICAL EXAMINATION: GENERAL: He is in no distress. He is talking in complete sentences. Heart rates in the 70s, blood pressure is 111/53, respiratory rates in the 20s, oximetry is 98. HEENT: Pupils are equal. Sclerae are anicteric. NECK: Without lymphadenopathy. LUNGS: Remarkable for crackles at both lung bases. HEART: Regular rhythm. ABDOMEN: Soft and nontender. EXTREMITIES: No clubbing, cyanosis, or edema. LABORATORY DATA: White count 6.9, hemoglobin 9.1, platelets 186. Sodium 140, potassium 3.8, chloride 110, bicarb 20, BUN 36, creatinine 2.33. BNP was 2305. DIAGNOSTIC STUDIES: Chest radiograph suggestive of pulmonary edema with a left upper lobe mass that is medial and apical. IMPRESSION: Lung mass, not a candidate for workup of this at this time given his dyspnea at rest and dyspnea on exertion. Congestive heart failure by history. CT scan on exam. I do not feel at this point in time he has pneumonia. It is not unreasonable to cover with antimicrobial therapy. I will be happy to follow the physicians caring for him. Continue his anticoagulation, amiodarone, aspirin, and lipid modification. He will continue with his nebulizer treatments. He is on broad antimicrobial therapy. I will give him one dose of steroids today, although he does not appear to be bronchospastic. This is a 50 min visit with greater than 50% of the time spent on the unit with coordination of care. Job ID: [id number] MTDD
[2020-05-19] MEDS: Cefepime 2 GM in Sodium Chloride 0.9% 100 ML IVPB SCH (02:50)
[2020-05-19 03:17] LABS: #Lymphocytes 0.1 thou/uL (1.20-3.40); #Monocytes 0.2 thou/uL (0.11-0.59); #Neutrophils 7.3 thou/uL (1.40-6.50); %Eosinophils 0.2 % (0.0-10.0); %Lymphocytes 1.5 % (21.0-51.0); %Monocytes 2.1 % (0.0-10.0); %Neutrophils 96.3 % (42.0-75.0); Hemoglobin 8.8 g/dL (14.0-18.0); Mean Corpuscular HGB CONC 32.6 g/dL (32.0-36.0); Mean Platelet Volume 8.1 fL (7.4-10.4); Platelet Count 158 thou/uL (130-400); RBC Distribution Width 16.8 % (11.5-14.5); Red Blood Cell (RBC) Count 2.53 mill/uL (4.70-6.10); White Blood Cell (WBC) Count 7.6 thou/uL (4.8-10.8)
[2020-05-19 03:32] LABS: Anion Gap 16 mmol/L (10-20); BUN (Urea Nitrogen) 41 mg/dL (8.4-25.7); Calc. Creatinine Clearance 34 mL/min (70-130); Calcium 8.3 mg/dL (7.8-10.44); Carbon Dioxide 19 mmol/L (23-31); Chloride 105 mmol/L (98-107); Estimated GFR-MDRD 26; Glucose 155 mg/dL (83-110); Potassium 3.3 mmol/L (3.5-5.1); Sodium 137 mmol/L (136-145)
[2020-05-19] MEDS: Carvedilol 6.25 MG TAB PO SCH ×2 (03:47→09:06)
[2020-05-19] MEDS: Budesonide 0.5 MG/2 ML NEB NEB SCH ×2 (07:00→18:58)
[2020-05-19] MEDS: Mometasone 200 MCG/Formoterol 5 MCG 120 PUFF INHALER INH SCH (07:00)
--- NOTE | 2020-05-19 07:54 | PRG ---
DATE OF SERVICE: 05/19/2020 SUBJECTIVE: Evert De La Rosa appears much more comfortable. He is in no distress. OBJECTIVE: VITAL SIGNS: Heart rate is in the 70s, respiratory rates in the teens, oximetry is 100% now, and blood pressure 106/54. Intake and outputs, -2755. LUNGS: Clear anteriorly and laterally. HEART: Regular rhythm. ABDOMEN: Soft. LABORATORY DATA: White count 7.6, hemoglobin 8.8, and platelets 158. Sodium 137, potassium 3.3, chloride 105, bicarb 19, BUN 41, and creatinine 2.43. IMPRESSION: 1. Pulmonary edema. 2. History of nephrectomy. 3. Lung mass. 4. Gastroesophageal junction cancer, status post treatment with persistent positive biopsies I am told. 5. Severe systolic cardiomyopathy with an ejection fraction of 15% to 20%. 6. History of pacer/automatic implantable cardioverter-defibrillator. 7. Mild to moderate mitral regurgitation. I am not sure he will ever be a good candidate for treatment of this lung mass. At this point in time, his congestive heart failure is the most pressing issue and the lung mass in theory could be worked up as an outpatient. Job ID: [id number]
[2020-05-19] MEDS ORDERED: Potassium Chloride 20 MEQ TAB PO SCH (08:00)
--- NOTE | 2020-05-19 08:51 | PDOC.HOSPP ---
- Subjective Subjective: Patient was seen examined at bedside. Patient is decompensated yesterday afternoon, he is getting more short of breath and hypoxic. Stat ABG, showed severe hypoxemia, no evidence of CO2 retention. Patient was given an extra dose of 2 mg IV Bumex, and a dose of IV albumin. He was subsequently transferred to [facility] for close monitor. He is currently comfortable on high flow at 40L. He has no fever. He has been diuresed well, with a net negative of 2.7L. His renal function remained stable. I have discussed with Dr. Brody at bedside Patient was also seen by Dr. Higgins yesterday afternoon, he was given a dose of IV steroid, he responded well. Appreciate all the specialist's input. He had no fever, new leukocytosis. His sed rate CRP is elevated. He currently is on empiric antibiotics with cefepime for possible postobstructive pneumonia given his large mass. His sed rate and CRP can also elevated in setting of underlying malignancy. Pt reports he breaths much better today. Nursing staff that he had couple episodes of hypotension, but recovered well. - Objective Vital Signs & Weight: Vital Signs (12 hours) Temp Pulse Resp BP Pulse Ox 05/19/20 07:27 97.6 F 05/19/20 07:00 72 17 100 05/19/20 03:58 97.2 F L 05/19/20 03:47 111/53 L 05/19/20 03:46 96 05/19/20 03:44 96 05/18/20 23:48 98.5 F 05/18/20 22:33 98 Weight Weight 198 lb 2.988 oz Most Recent Monitor Data Heart Rate from ECG 73 NIBP 107/68 NIBP BP-Mean 81 Respiration from ECG 27 SpO2 100 I&O: 05/18/20 05/19/20 05/20/20 06:59 06:59 06:59 Intake Total 1660 120 Output Total 1650 2875 Balance 10 -3158 Result Diagrams: 05/19/20 03:04 05/19/20 03:04 Radiology Reviewed by me: Yes EKG Reviewed by me: Yes Hospitalist ROS - Medication Medications: Active Medications Generic Name Dose Route Start Last Admin Trade Name Freq PRN Reason Stop Dose Admin Albumin Human 25 gm 05/18/20 11:26 05/18/20 13:14 Albumin 25% 25 Gm/100 Ml Bot IVPB 05/19/20 13:00 25 gm 1126 ANGÉLICA Administration Albuterol/Ipratropium 3 ml 05/17/20 22:30 05/19/20 07:00 Ipratropium/Albuterol Sulfate 3 Ml Neb NEB 3 ml [id number] ANGÉLICA Administration Amiodarone HCl 200 mg 05/17/20 09:00 05/18/20 20:24 Amiodarone 200 Mg Tab PO 200 mg BID ANGÉLICA Administration Apixaban 5 mg 05/17/20 21:00 05/18/20 20:24 Apixaban 5 Mg Tab PO 5 mg BID ANGÉLICA Administration Ascorbic Acid 500 mg 05/17/20 09:00 05/18/20 09:56 Ascorbic Acid 500 Mg Chewable Tablet PO 500 mg DAILY ANGÉLICA Administration Aspirin 81 mg 05/17/20 09:00 05/18/20 09:57 Aspirin 81 Mg Enteric Coated Tablet PO 81 mg DAILY ANGÉLICA Administration Atorvastatin Calcium 10 mg 05/17/20 21:00 05/18/20 20:24 Atorvastatin Calcium 10 Mg Tab PO 10 mg HS ANGÉLICA Administration Benzonatate 100 mg 05/18/20 14:41 05/18/20 14:59 Benzonatate 100 Mg Cap PO 100 mg Q4H PRN Administration Cough Budesonide 0.5 mg 05/18/20 06:30 05/19/20 07:00 Budesonide 0.5 Mg/2 Ml Neb NEB 0.5 mg BID-RT ANGÉLICA Administration Calcitriol 0.25 mcg 05/17/20 21:00 05/18/20 20:24 Calcitriol 0.25 Mcg Cap PO 0.25 mcg HS ANGÉLICA Administration Carvedilol 6.25 mg 05/18/20 09:00 05/19/20 03:47 Carvedilol 6.25 Mg Tab PO Not Given BID ANGÉLICA Cyanocobalamin 500 mcg 05/17/20 09:00 05/18/20 09:56 Cyanocobalamin (Vitamin B-12) 1,000 Mcg Tab PO 500 mcg DAILY ANGÉLICA Administration Folic Acid 1 mg 05/17/20 09:00 05/18/20 09:57 Folic Acid 1 Mg Tab PO 1 mg DAILY ANGÉLICA Administration Furosemide 40 mg 05/18/20 09:00 05/18/20 20:24 Furosemide 40 Mg/4 Ml Vial SLOW IVP 40 mg BID ANGÉLICA Administration Guaifenesin 600 mg 05/18/20 21:00 05/18/20 20:24 Guaifenesin Er 600 Mg Tab PO 600 mg Q12HR ANGÉLICA Administration Cefepime HCl 2 gm/ Sodium 100 mls @ 200 mls/hr 05/18/20 03:00 05/19/20 02:50 Chloride IVPB 100 mls 0300 ANGÉLICA Administration Isosorbide Mononitrate 15 mg 05/18/20 09:00 05/18/20 09:53 Isosorbide Mononitrate Er 30 Mg Tab PO 15 mg DAILY ANGÉLICA Administration Loratadine 10 mg 05/17/20 09:00 05/18/20 09:57 Loratadine 10 Mg Tab PO 10 mg DAILY ANGÉLICA Administration Mometasone Furoate/Formoterol Fumar 2 puff 05/17/20 07:00 05/19/20 07:00 Mometasone 200 Mcg/Formoterol 5 Mcg 120 Puff Inhaler INH 2 puff DAILY-RT ANGÉLICA Administration Pantoprazole Sodium 40 mg 05/17/20 09:00 05/18/20 20:24 Pantoprazole 40 Mg Tab PO 40 mg BID ANGÉLICA Administration Pyridoxine HCl 100 mg 05/17/20 09:00 05/18/20 09:56 Pyridoxine 50 Mg (B6) Tab PO 100 mg DAILY ANGÉLICA Administration - Exam General Appearance: NAD, awake alert Eye: PERRL, anicteric sclera ENT: normocephalic atraumatic Neck: supple Heart: RRR Respiratory: rales, rhonchi Gastrointestinal: soft, non-tender Extremities: no cyanosis, 1+ LE edema (Right LE) Skin: normal turgor Neurological: cranial nerve grossly intact Musculoskeletal: normal tone Psychiatric: normal affect, normal behavior, A&O x 3 Hosp A/P - Plan This is a pleasant 74 years old gentleman with multiple comorbidities including chronic systolic heart failure, A. fib, GERD, dyslipidemia, hypertension, COPD, GE junction adenocarcinoma, history of bladder cancer, history of DVT on Eliquis, who presented to his PCP office with worsening dyspnea. Patient was subsequently sent to the ED after he was noted hypoxic, reportedly his O2 sat was in the 60s, he was initially admitted for presumed PNA. Acute hypoxic respiratory failure secondary to multifactorial including CHF exac, pleural effusion, lung mass --Cont HiFlo, wean O2 as maciej. cont IV diuresis and empiric IV abx, nebs treatments as below. COVID PCR negative --Pt was given a dose of IV steroid by Dr. Higgins for possible pneumonitis, seems responded well --Cont mgt as delineated below. Acute on chronic systolic heart failure with EF of 10-20% --Diureses well. Cont IV Lasix, monitor I&O, daily weight. Repleted lytes prn --Followed by Dr. Scott --Follow renal function closely. Hx nephrectomy with CKD3 Dyspnea - likely multifactorial, lung mass, CHF/pleural effusion --cont IV diuresis. breathing treatments --Pul consulted for possible therapeutic thoracocentesis, but he seems responded well with diuresis. Monitor renal function Pneumonia --Initial chest CXR showed possible PNA, but his symptoms and clinical findings suggestive of volume overload --CT chest reviewed. --Vanc was discontinued, cont Cefepime for now for possible post-obstructive PN A, although I doubt as he has no leukocytosis or fever. SED/CRP elevated, but could also due to underlying malignancy Left Upper Lobe Lung Mass - 8.3 cm, NEW, comparing to last PET scan on 01/04 --concerning for possible malignancy --Pul consult. Appreciate input. Possible CT guided biopsy when more euvolemic and improved respiratory status B/L Pleural Effusion - L>R --Pul consult for new lung mass and eval of pleural effusion to see if thoraco centesis (therapeutic/diagnostic) if it is necessary --cont IV diuresis as above. --rpt CXR in AM to assess volume Hx of GE junction Adenocarcinoma and hx of transition cell carcinoma --followed by Dr Hill, last chemotherapy in May 2019. Incomplete Rx per pt --Consult Oncology given new Lung mass, appreciate oncology input Hx DVT --cont Eliquis Chronic Afib - rate controlled --cont Eliquis/BB DM 2 --cont ISS CKD 3 with hx of nephrectomy --Cr stable. avoid nephrotoxic agent. --followed by Dr. Brody
[2020-05-19] MEDS: Amiodarone 200 MG TAB PO SCH ×2 (09:04→21:41)
[2020-05-19] MEDS: Apixaban 5 MG TAB PO SCH ×2 (09:04→21:41)
[2020-05-19] MEDS: Cyanocobalamin (Vitamin B-12) 1,000 MCG TAB PO SCH (09:05)
[2020-05-19] MEDS: Folic Acid 1 MG TAB PO SCH (09:05)
[2020-05-19] MEDS: guaiFENesin ER 600 MG TAB PO SCH ×2 (09:05→21:41)
[2020-05-19] MEDS: Ascorbic Acid 500 mg Chewable Tablet PO SCH (09:05)
[2020-05-19] MEDS: Aspirin 81 mg Enteric Coated Tablet PO SCH (09:06)
[2020-05-19] MEDS: Loratadine 10 MG TAB PO SCH (09:06)
[2020-05-19] MEDS: Furosemide 40 MG/4 ML VIAL SLOW IVP SCH ×2 (09:07→21:41)
--- NOTE | 2020-05-19 09:13 | PRG ---
DATE OF SERVICE: 05/19/2020 SUBJECTIVE: Mr. De La Rosa is a 74-year-old white male, followed up by the Renal Service for his chronic renal failure. We were consulted for management of this chronic renal failure. Renal function is relatively stable. He was initially thought to have pneumonia. However, he was noted to have a new left upper lobe lung mass. In addition, he had some degree of pulmonary edema. He is currently on IV diuretics. He decompensated last night, was given extra dose of diuretics. We are continuing current diuretic regimen. From a renal point of view, he is tolerating this. He has also been evaluated by Oncology. He is feeling better this morning. No new complaints. OBJECTIVE: VITAL SIGNS: Blood pressure is 107/68, heart rate 73, respiratory rate 27, O2 saturation 100%, and temperature 97.6. GENERAL: He is noted to be awake, alert, comfortable, not in overt distress. SKIN: Adequate turgor. HEENT: Pinkish conjunctivae. Anicteric sclerae. NECK: No neck mass. No carotid bruits. No JVD. CHEST: No deformities. LUNGS: Decreased breath sounds. HEART: Normal sinus rhythm. No murmurs, gallops, or rubs. ABDOMEN: Globular, soft, nontender. No masses. EXTREMITIES: Positive for edema, but no deformities. MEDICATIONS: On May 19, 2020, were reviewed. LABORATORY DATA: On May 19, 2020; white count 7.6, hemoglobin 8.8. Sodium 137, potassium 3.3, chloride 105, carbon dioxide 19, BUN 41, creatinine 2.43, GFR 26 mL/minute. C-reactive protein 13.9. BNP is 2305. ASSESSMENT AND PLAN: 1. Congestive heart failure. Currently, on diuretic regimen. Continue said regimen. Current kidney function is relatively stable. 2. Chronic renal failure, slightly fluctuating creatinine. This could be a reflection of the current congestive heart failure as well as diuretic regimen. Continue IV diuretics. No indication for any dialytic intervention. 3. Left lung mass-Oncology is following. This patient may eventually need a biopsy of this lung mass. Overall, prognosis remains guarded. 4. Deep venous thrombosis. Currently, on [employer]. Job ID: [id number]
[2020-05-19] MEDS: pyridOXINE 50 MG (B6) TAB PO SCH (10:14)
[2020-05-19] MEDS: Albumin 25% 25 GM/100 ML BOT IVPB SCH (12:38)
--- NOTE | 2020-05-19 14:05 | PDOC.MOPN ---
Interval History: Patient breathing improved after diuresis. - Vital Signs Vital Signs: Vital Signs (12 hours) Temp Pulse Pulse Pulse Pulse Resp BP 05/19/20 11:52 97.8 F 05/19/20 11:26 71 70 05/19/20 11:05 70 25 H 05/19/20 09:40 75 70 05/19/20 09:06 114/59 L 05/19/20 07:27 97.6 F 05/19/20 07:00 72 17 05/19/20 03:58 97.2 F L 05/19/20 03:47 111/53 L 05/19/20 03:46 05/19/20 03:44 BP BP BP Pulse Ox Pulse Ox Pulse Ox Pulse Ox 05/19/20 11:52 05/19/20 11:26 108/59 L 104/47 L 98 93 L 05/19/20 11:05 98 05/19/20 09:40 111/55 L 116/61 90 L 97 05/19/20 09:06 05/19/20 07:27 05/19/20 07:00 100 05/19/20 03:58 05/19/20 03:47 05/19/20 03:46 96 05/19/20 03:44 96 Weight Weight 198 lb 2.988 oz Most Recent Monitor Data Heart Rate from ECG 74 NIBP 100/53 NIBP BP-Mean 68 Respiration from ECG 21 SpO2 96 - Physical Exam General: Alert, Oriented x3, No acute distress HEENT: Atraumatic, PERRLA, EOMI, Mucous membr. moist/pink Lungs: Other Cardiovascular: Regular rate Abdomen: Normal bowel sounds Extremities: Other Neurological: Normal speech - Labs Result Diagrams: 05/19/20 03:04 05/19/20 03:04 Lab results: Laboratory Results - last 24 hr 05/19/20 03:04: ESR Westergren 63 05/19/20 03:04: C-Reactive Protein 13.90 H 05/19/20 03:04: WBC 7.6, RBC 2.53 L, Hgb 8.8 L, Hct 27.1 L, MCV 107.0 H, MCH 35.0 H, MCHC 32.6, RDW 16.8 H, Plt Count 158, MPV 8.1, Neutrophils % 96.3 H, Lymphocytes % 1.5 L, Monocytes % 2.1, Eosinophils % 0.2, Basophils % 0.0, Neutrophils # 7.3 H, Lymphocytes # 0.1 L, Monocytes # 0.2, Eosinophils # 0.0, Basophils # 0.0 05/19/20 03:04: Sodium 137, Potassium 3.3 L, Chloride 105, Carbon Dioxide 19 L, Anion Gap 16, BUN 41 H, Creatinine 2.43 H, Estimated GFR (MDRD) 26, Glucose 155 H, Calcium 8.3 Status: lab reviewed by me A/P - Problem (1) Pneumonia Current Visit: Yes Code(s): J18.9 - PNEUMONIA, UNSPECIFIED ORGANISM Status: Acute (2) Gastroesophageal cancer Current Visit: Yes Code(s): C16.0 - MALIGNANT NEOPLASM OF CARDIA Status: Chronic (3) Chronic lung disease Current Visit: No Code(s): J98.4 - OTHER DISORDERS OF LUNG Status: Chronic (4) Chronic systolic heart failure Current Visit: No Code(s): I50.22 - CHRONIC SYSTOLIC (CONGESTIVE) HEART FAILURE Status: Chronic - Plan Plan: continue abx, steroids, o2 per pulmonary needs biopsy of lung mass, can be done next week as outpatient will have to be off anticoagulation before biopsy will follow remotely.
[2020-05-19] MEDS: Calcitriol 0.25 MCG CAP PO SCH (21:42)
[2020-05-19] MEDS: Atorvastatin Calcium 10 MG TAB PO SCH (21:42)
[2020-05-20] MEDS: Carvedilol 6.25 MG TAB PO SCH ×3 (01:45→20:50)
[2020-05-20 03:10] LABS: #Lymphocytes 0.2 thou/uL (1.20-3.40); #Monocytes 0.6 thou/uL (0.11-0.59); #Neutrophils 8.9 thou/uL (1.40-6.50); %Eosinophils 0.1 % (0.0-10.0); %Lymphocytes 2.4 % (21.0-51.0); %Neutrophils 91.5 % (42.0-75.0); Hemoglobin 8.4 g/dL (14.0-18.0); Hemoglobin 8.5 g/dL (14.0-18.0); Mean Corpuscular HGB CONC 33.2 g/dL (32.0-36.0); Mean Corpuscular Hemoglobin 35.8 pg (27.0-31.0); Mean Platelet Volume 8.4 fL (7.4-10.4); Platelet Count 145 thou/uL (130-400); Platelet Count 154 thou/uL (130-400); RBC Distribution Width 16.3 % (11.5-14.5); Red Blood Cell (RBC) Count 2.35 mill/uL (4.70-6.10); White Blood Cell (WBC) Count 9.7 thou/uL (4.8-10.8)
[2020-05-20 03:33] LABS: Anion Gap 15 mmol/L (10-20); BUN (Urea Nitrogen) 51 mg/dL (8.4-25.7); Calc. Creatinine Clearance 32 mL/min (70-130); Calcium 8.4 mg/dL (7.8-10.44); Carbon Dioxide 21 mmol/L (23-31); Chloride 107 mmol/L (98-107); Estimated GFR-MDRD 25; Glucose 135 mg/dL (83-110); Magnesium 2.2 mg/dL (1.6-2.6); Potassium 3.4 mmol/L (3.5-5.1); Sodium 140 mmol/L (136-145)
[2020-05-20] MEDS: Cefepime 2 GM in Sodium Chloride 0.9% 100 ML IVPB SCH (04:05)
[2020-05-20] MEDS: Budesonide 0.5 MG/2 ML NEB NEB SCH ×2 (07:04→23:19)
[2020-05-20] MEDS: Mometasone 200 MCG/Formoterol 5 MCG 120 PUFF INHALER INH SCH (07:05)
[2020-05-20] MEDS ORDERED: Clopidogrel Bisulfate 75 MG TAB ONE (08:59)
[2020-05-20] MEDS: Ascorbic Acid 500 mg Chewable Tablet PO SCH (09:09)
[2020-05-20] MEDS: Apixaban 5 MG TAB PO SCH ×2 (09:09→20:50)
[2020-05-20] MEDS: Folic Acid 1 MG TAB PO SCH (09:09)
[2020-05-20] MEDS: Loratadine 10 MG TAB PO SCH (09:09)
[2020-05-20] MEDS: Aspirin 81 mg Enteric Coated Tablet PO SCH (09:09)
[2020-05-20] MEDS: Amiodarone 200 MG TAB PO SCH ×2 (09:09→20:50)
[2020-05-20] MEDS: Cyanocobalamin (Vitamin B-12) 1,000 MCG TAB PO SCH (09:10)
[2020-05-20] MEDS: Furosemide 40 MG/4 ML VIAL SLOW IVP SCH ×2 (09:10→20:50)
[2020-05-20] MEDS: guaiFENesin ER 600 MG TAB PO SCH ×2 (09:10→20:50)
[2020-05-20 11:02] LABS: Anion Gap 14 mmol/L (10-20); BUN (Urea Nitrogen) 52 mg/dL (8.4-25.7); Calc. Creatinine Clearance 32 mL/min (70-130); Calcium 8.4 mg/dL (7.8-10.44); Carbon Dioxide 21 mmol/L (23-31); Chloride 108 mmol/L (98-107); Estimated GFR-MDRD 25; Glucose 143 mg/dL (83-110); Potassium 3.1 mmol/L (3.5-5.1); Sodium 140 mmol/L (136-145)
--- NOTE | 2020-05-20 11:08 | PRG ---
DATE OF SERVICE: 05/20/2020 SUBJECTIVE: Mr. De La Rosa is a 74-year-old white male with chronic renal failure, followed by Renal Service for management of his chronic renal failure. He was recently admitted for shortness of breath. Initially, it was felt he might have pneumonia. He was found to be in CHF. During the initial evaluation, he was also found to have a new left upper lobe lung mass. No new complaints today. He tells me he is breathing better. He is currently on a diuretic regimen. OBJECTIVE: VITAL SIGNS: Blood pressure is 113/56, heart rate 72, respiratory rate 19, O2 saturation 98%. GENERAL: The patient is awake, alert, comfortable, not in distress. SKIN: Adequate turgor. HEENT: He has pinkish conjunctivae. Anicteric sclerae. NECK: No neck mass. No carotid bruits. No JVD. CHEST: No deformities. LUNGS: Decreased breath sounds. HEART: Normal sinus rhythm. No murmur. No gallops. No rubs. ABDOMEN: Globular, soft. Nontender. No masses. EXTREMITIES: No edema. He is positive for urostomy. MEDICATIONS: On May 20, 2020, reviewed. LABORATORY DATA: On May 20, 2020, white count 9.7, hemoglobin 8.4. Sodium 140, potassium 3.4, chloride 107, carbon dioxide 21, BUN 51, creatinine 2.55. BNP is 1830. Chest x-ray is pending. ASSESSMENT AND PLAN: 1. Shortness of breath. The patient is on furosemide 40 mg IV q.12. Shortness of breath is improving. Continue current diuretic regimen for the moment. 2. Chronic renal failure/acute kidney injury - creatinine is slightly high at 2.55 from an initial value of 2.31. There is most likely a prerenal component. We will adjust the diuretics as needed. If needed, we can give an albumin infusion for this patient. 3. New left upper lobe lung mass - for eventual biopsy as an outpatient. Oncology is following. 4. We will recheck CBC and basic metabolic panel in a.m. Job ID: [id number]
[2020-05-20] MEDS: pyridOXINE 50 MG (B6) TAB PO SCH (11:20)
--- NOTE | 2020-05-20 11:29 | PRG ---
DATE OF SERVICE: 05/20/2020 SUBJECTIVE: The patient is doing reasonably well. He has been weaned down to 37% oxygen by high-flow nasal cannula. PHYSICAL EXAMINATION: VITAL SINGS: On exam, temperature 97.4, pulse rate 70, and blood pressure 113/56. HEENT: Unremarkable. NECK: No adenopathy or JVD. CHEST: Fairly clear anteriorly. DIAGNOSTIC DATA: His chest x-ray demonstrates bilateral infiltrates that have improved. LABORATORY DATA: Sodium 140, potassium 3.1, BUN 52, creatinine 2.5, and glucose 143. ASSESSMENT: 1. Pulmonary edema. 2. History of nephrectomy. 3. Left upper lobe lung mass. 4. Gastroesophageal junction cancer. 5. Severe cardiomyopathy. PLAN: 1. Wean oxygen as tolerated. 2. Not a candidate for lung biopsy at this time given underlying comorbidities. Job ID: [id number]
--- NOTE | 2020-05-20 13:09 | RAD ---
PORTABLE CHEST: HISTORY: Respiratory failure. COMPARISON: 05/18/2020 exam. FINDINGS: Heart size is enlarged. Internal defibrillator device is present. Chronic lung changes and parenchy mal changes in both lung bansal are all stable. IMPRESSION: Stable exam. POS: OFF
--- NOTE | 2020-05-20 16:54 | PDOC.HOSPP ---
- Subjective Encounter Date: 05/20/20 Encounter Time: 11:15 Subjective: pt up in bed no complains - Objective Vital Signs & Weight: Vital Signs (12 hours) Temp Pulse Resp BP Pulse Ox 05/20/20 14:35 73 22 H 100 05/20/20 11:27 97.2 F L 05/20/20 10:41 83 18 05/20/20 09:09 113/56 L 05/20/20 07:17 97.4 F L 05/20/20 07:04 81 21 H 96 Weight Weight 193 lb Most Recent Monitor Data Heart Rate from ECG 74 NIBP 121/66 NIBP BP-Mean 84 Respiration from ECG 16 SpO2 90 I&O: 05/19/20 05/20/20 05/21/20 06:59 06:59 06:59 Intake Total 120 100 Output Total 2875 1600 Balance -1085 -1500 Result Diagrams: 05/20/20 03:00 05/20/20 10:29 Hospitalist ROS - Review of Systems Cardiovascular: denies: chest pain, palpitations, orthopnea, paroxysmal noc. dyspnea, edema, light headedness, other Gastrointestinal: denies: nausea, vomiting, abdominal pain, diarrhea, constipation, melena, hematochezia, other Genitourinary: denies: dysuria, frequency, incontinence, hematuria, retention, other - Medication Medications: Active Medications Generic Name Dose Route Start Last Admin Trade Name Freq PRN Reason Stop Dose Admin Albuterol/Ipratropium 3 ml 05/17/20 22:30 05/20/20 14:35 Ipratropium/Albuterol Sulfate 3 Ml Neb NEB 3 ml [id number] ANGÉLICA Administration Amiodarone HCl 200 mg 05/17/20 09:00 05/20/20 09:09 Amiodarone 200 Mg Tab PO 200 mg BID ANGÉLICA Administration Apixaban 5 mg 05/17/20 21:00 05/20/20 09:09 Apixaban 5 Mg Tab PO 5 mg BID ANGÉLICA Administration Ascorbic Acid 500 mg 05/17/20 09:00 05/20/20 09:09 Ascorbic Acid 500 Mg Chewable Tablet PO 500 mg DAILY ANGÉLICA Administration Aspirin 81 mg 05/17/20 09:00 05/20/20 09:09 Aspirin 81 Mg Enteric Coated Tablet PO 81 mg DAILY ANGÉLICA Administration Atorvastatin Calcium 10 mg 05/17/20 21:00 05/19/20 21:42 Atorvastatin Calcium 10 Mg Tab PO 10 mg HS ANGÉLICA Administration Benzonatate 100 mg 05/18/20 14:41 05/18/20 14:59 Benzonatate 100 Mg Cap PO 100 mg Q4H PRN Administration Cough Budesonide 0.5 mg 05/18/20 06:30 05/20/20 07:04 Budesonide 0.5 Mg/2 Ml Neb NEB 0.5 mg BID-RT ANGÉLICA Administration Calcitriol 0.25 mcg 05/17/20 21:00 05/19/20 21:42 Calcitriol 0.25 Mcg Cap PO 0.25 mcg HS ANGÉLICA Administration Carvedilol 6.25 mg 05/18/20 09:00 05/20/20 09:09 Carvedilol 6.25 Mg Tab PO 6.25 mg BID ANGÉLICA Administration Cyanocobalamin 500 mcg 05/17/20 09:00 05/20/20 09:10 Cyanocobalamin (Vitamin B-12) 1,000 Mcg Tab PO 500 mcg DAILY ANGÉLICA Administration Folic Acid 1 mg 05/17/20 09:00 05/20/20 09:09 Folic Acid 1 Mg Tab PO 1 mg DAILY ANGÉLICA Administration Furosemide 40 mg 05/18/20 09:00 05/20/20 09:10 Furosemide 40 Mg/4 Ml Vial SLOW IVP 40 mg BID ANGÉLICA Administration Guaifenesin 600 mg 05/18/20 21:00 05/20/20 09:10 Guaifenesin Er 600 Mg Tab PO 600 mg Q12HR ANGÉLICA Administration Cefepime HCl 2 gm/ Sodium 100 mls @ 200 mls/hr 05/18/20 03:00 05/20/20 04:05 Chloride IVPB 100 mls 0300 ANGÉLICA Administration Isosorbide Mononitrate 15 mg 05/18/20 09:00 05/20/20 09:10 Isosorbide Mononitrate Er 30 Mg Tab PO 15 mg DAILY ANGÉLICA Administration Loratadine 10 mg 05/17/20 09:00 05/20/20 09:09 Loratadine 10 Mg Tab PO 10 mg DAILY ANGÉLICA Administration Mometasone Furoate/Formoterol Fumar 2 puff 05/17/20 07:00 05/20/20 07:05 Mometasone 200 Mcg/Formoterol 5 Mcg 120 Puff Inhaler INH 2 puff DAILY-RT ANGÉLICA Administration Pantoprazole Sodium 40 mg 05/17/20 09:00 05/20/20 09:10 Pantoprazole 40 Mg Tab PO 40 mg BID ANGÉLICA Administration Pyridoxine HCl 100 mg 05/17/20 09:00 05/20/20 11:20 Pyridoxine 50 Mg (B6) Tab PO 100 mg DAILY ANGÉLICA Administration - Exam Heart: negative: RRR, no murmur, no gallops, no rubs, normal peripheral pulses, irregular, diminshed peripheral pulses, murmur present, II/IV, III/IV Respiratory: rales Gastrointestinal: negative: soft, non-tender, non-distended, normal bowel sounds, no palpable masses, no hepatomegaly, no splenomegaly, no bruit, no guarding, no rigidity, tender to palpation, distended, diminished bowl sounds, voluntary guarding Extremities: 1+ LE edema Hosp A/P (1) Acute and chronic respiratory failure with hypoxia Code(s): J96.21 - ACUTE AND CHRONIC RESPIRATORY FAILURE WITH HYPOXIA Status: Acute (2) Acute systolic (congestive) heart failure Code(s): I50.21 - ACUTE SYSTOLIC (CONGESTIVE) HEART FAILURE Status: Acute (3) Fever Code(s): R50.9 - FEVER, UNSPECIFIED Status: Acute (4) Diabetes mellitus Code(s): E11.9 - TYPE 2 DIABETES MELLITUS WITHOUT COMPLICATIONS Status: Chronic Qualifiers: Diabetes mellitus type: type 2 (5) History of deep vein thrombosis Code(s): Z86.718 - PERSONAL HISTORY OF OTHER VENOUS THROMBOSIS AND EMBOLISM Status: Chronic (6) Hyperlipidemia Code(s): E78.5 - HYPERLIPIDEMIA, UNSPECIFIED Status: Chronic (7) Adenocarcinoma Code(s): C80.1 - MALIGNANT (PRIMARY) NEOPLASM, UNSPECIFIED Status: Acute (8) Pneumonia Code(s): J18.9 - PNEUMONIA, UNSPECIFIED ORGANISM Status: Acute - Plan Patient is a 74-year-old male with past medical history of A. fib, hyperlipidemia, hypertension, bladder cancer, GE adenocarcinoma who comes in with complaints of fever and hypoxia. Patient also has a history of DVTs and PEs and is on Eliquis. 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 He apparently underwent endoscopies which indicated residual microscopic disease. Scan was done indicated right cervicothoracic junction lymph node concerning for possible metastasis. Patient underwent a CT chest without contrast which indicated new left upper lobe lung mass suspicious for malignancy mediastinal lymphadenopathy. Patient is currently on antibiotics. 05/20 patient continues to be on high flow on antibiotics. will continue eliquis. pt on iv diuretics.
[2020-05-20] MEDS ORDERED: Electrolyte Replacement Protoc 1 EACH EACH FS SCH (19:45)
[2020-05-20] MEDS ORDERED: Potassium Chloride 20 MEQ TAB PO SCH (20:00)
[2020-05-20] MEDS: Calcitriol 0.25 MCG CAP PO SCH (20:50)
[2020-05-20] MEDS: Atorvastatin Calcium 10 MG TAB PO SCH (20:50)
[2020-05-21 03:45] LABS: #Eosinphils 0.1 thou/uL (0.0-0.7); #Lymphocytes 0.2 thou/uL (1.20-3.40); #Monocytes 0.5 thou/uL (0.11-0.59); #Neutrophils 6.9 thou/uL (1.40-6.50); %Basophils 0.6 % (0.0-1.0); %Eosinophils 1.8 % (0.0-10.0); %Lymphocytes 2.6 % (21.0-51.0); %Monocytes 6.8 % (0.0-10.0); %Neutrophils 88.2 % (42.0-75.0); Hemoglobin 9.8 g/dL (14.0-18.0); Mean Corpuscular HGB CONC 32.6 g/dL (32.0-36.0); Mean Corpuscular Hemoglobin 35.4 pg (27.0-31.0); Mean Platelet Volume 8.3 fL (7.4-10.4); Platelet Count 199 thou/uL (130-400); RBC Distribution Width 16.8 % (11.5-14.5); Red Blood Cell (RBC) Count 2.77 mill/uL (4.70-6.10); White Blood Cell (WBC) Count 7.8 thou/uL (4.8-10.8)
[2020-05-21] MEDS: Cefepime 2 GM in Sodium Chloride 0.9% 100 ML IVPB SCH (04:01)
[2020-05-21 04:12] LABS: Anion Gap 16 mmol/L (10-20); BUN (Urea Nitrogen) 52 mg/dL (8.4-25.7); Calc. Creatinine Clearance 32 mL/min (70-130); Calcium 8.5 mg/dL (7.8-10.44); Carbon Dioxide 21 mmol/L (23-31); Chloride 108 mmol/L (98-107); Estimated GFR-MDRD 25; Glucose 101 mg/dL (83-110); Potassium 3.5 mmol/L (3.5-5.1); Sodium 141 mmol/L (136-145)
[2020-05-21] MEDS: Cyanocobalamin (Vitamin B-12) 1,000 MCG TAB PO SCH (09:27)
[2020-05-21] MEDS: Amiodarone 200 MG TAB PO SCH ×2 (09:28→21:12)
[2020-05-21] MEDS: Saccharomyces boulardii 250 MG CAP PO SCH (09:28)
[2020-05-21] MEDS: Ascorbic Acid 500 mg Chewable Tablet PO SCH (09:28)
[2020-05-21] MEDS: guaiFENesin ER 600 MG TAB PO SCH ×2 (09:29→21:12)
[2020-05-21] MEDS: Carvedilol 6.25 MG TAB PO SCH ×2 (09:29→21:12)
[2020-05-21] MEDS: Aspirin 81 mg Enteric Coated Tablet PO SCH (09:29)
[2020-05-21] MEDS: pyridOXINE 50 MG (B6) TAB PO SCH (09:31)
[2020-05-21] MEDS: Apixaban 5 MG TAB PO SCH ×2 (09:31→21:12)
[2020-05-21] MEDS: Loratadine 10 MG TAB PO SCH (09:31)
[2020-05-21] MEDS: Folic Acid 1 MG TAB PO SCH (09:31)
[2020-05-21] MEDS: Furosemide 40 MG/4 ML VIAL SLOW IVP SCH ×2 (09:32→21:12)
[2020-05-21] MEDS: Benzonatate 100 MG CAP PO PRN (09:46)
[2020-05-21] MEDS: Budesonide 0.5 MG/2 ML NEB NEB SCH ×2 (10:28→18:45)
[2020-05-21] MEDS: Mometasone 200 MCG/Formoterol 5 MCG 120 PUFF INHALER INH SCH (10:28)
--- NOTE | 2020-05-21 11:26 | PRG ---
DATE OF SERVICE: 05/21/20 SUBJECTIVE: Mr. De La Rosa is a 74-year-old white male, who was admitted for shortness of breath. He was found to have CHF and a new left upper lobe lung mass. We are following up this patient for his acute kidney injury on top of his chronic renal failure. Please note, he is currently on diuretic regimen. He seems to be tolerating this. His renal function has been stable for the last three days. He has also been evaluated by Pulmonary Medicine and Hematology. No other complaints today. OBJECTIVE: VITAL SIGNS: Blood pressure is 125/64, heart rate 70, respiratory rate 19, and O2 saturation 99% on 3 L. GENERAL: The patient is awake, alert, comfortable, not in overt distress. SKIN: Adequate turgor. HEENT: He has a slightly pale conjunctivae. Anicteric sclerae. No neck mass. No carotid bruits. No JVD. CHEST: No deformities. LUNGS: Decreased breath sounds. HEART: Normal sinus rhythm. No murmur. No gallops. No rubs. ABDOMEN: Globular, soft, and nontender. No masses. Positive for urostomy. EXTREMITIES: No edema, no deformities. MEDICATIONS: Medications of May 21, 2020, was reviewed. LABORATORY DATA: Laboratories of May 21, 2020; white count 7.8, hemoglobin 9.8. Sodium 141, potassium 3.5, chloride 108, carbon dioxide 21, BUN 52, creatinine 2.51, GFR 25 mL/minute, calcium 8.5. May 20, 2020 chest x-ray, stable exam. Chronic lung changes. ASSESSMENT AND PLAN: 1. Shortness of breath, clinically much improved. Continuing current diuretic regimen. 2. Acute kidney injury/chronic renal failure, superimposed prerenal azotemia. This could be from an underlying diuretic regimen. Continue current management. No indication for any dialytic intervention. No changes will be made with Lasix. 3. Left upper lobe lung mass, eventual lung biopsy is being planned. Hematology is following. 4. Overall agree with current management. Recheck CBC and basic metabolic in a.m.. Job ID: [id number] MTDD
--- NOTE | 2020-05-21 11:48 | PRG ---
DATE OF SERVICE: 05/21/2020 SUBJECTIVE: The patient is doing reasonably well, has no complaints. OBJECTIVE: VITAL SIGNS: On exam, temperature 97.8, pulse 75, respirations are 22, blood pressure 101/57, O2 saturations 100% on 3 L. HEENT: Unremarkable. NECK: No JVD. LUNGS: Fairly clear. CARDIAC: S1 and S2, regular. ABDOMEN: Soft. EXTREMITIES: No edema. LABORATORY DATA: White blood cell count 7.8, hematocrit 30, and platelet count 199. Sodium 141, potassium 3.5, chloride 108, CO2 of 21, BUN 52, creatinine 2.5, glucose 101. ASSESSMENT: 1. Pulmonary edema. 2. History of nephrectomy. 3. Left upper lobe lung mass. 4. Gastroesophageal cancer. 5. Severe cardiomyopathy. PLAN: 1. Continue to wean oxygen as tolerated. 2. Transfer to telemetry unit or medical floor. Job ID: [id number]
[2020-05-21] MEDS: Guaifenesin DM 100-10/5 ML UDCUP PO PRN (12:39)
--- NOTE | 2020-05-21 16:47 | PDOC.HOSPP ---
- Subjective Encounter Date: 05/21/20 Encounter Time: 11:15 Subjective: pt up in bed no complains - Objective Vital Signs & Weight: Vital Signs (12 hours) Temp Pulse Resp BP BP Pulse Ox 05/21/20 15:42 76 12 05/21/20 14:00 98.3 F 73 16 118/60 96 05/21/20 11:28 97.8 F 05/21/20 10:25 70 19 99 05/21/20 09:29 125/64 05/21/20 08:00 99 05/21/20 07:17 97.8 F Weight Weight 188 lb 8 oz Most Recent Monitor Data Heart Rate from ECG 72 NIBP 109/56 NIBP BP-Mean 73 Respiration from ECG 22 SpO2 97 I&O: 05/20/20 05/21/20 05/22/20 06:59 06:59 06:59 Intake Total 100 Output Total 5320 778 3713 Balance -1500 -850 -1700 Result Diagrams: 05/21/20 03:21 05/21/20 03:21 Hospitalist ROS - Review of Systems Cardiovascular: denies: chest pain, palpitations, orthopnea, paroxysmal noc. dyspnea, edema, light headedness, other Gastrointestinal: denies: nausea, vomiting, abdominal pain, diarrhea, constipation, melena, hematochezia, other Genitourinary: denies: dysuria, frequency, incontinence, hematuria, retention, other - Medication Medications: Active Medications Generic Name Dose Route Start Last Admin Trade Name Freq PRN Reason Stop Dose Admin Albuterol/Ipratropium 3 ml 05/17/20 22:30 05/21/20 15:42 Ipratropium/Albuterol Sulfate 3 Ml Neb NEB 3 ml [id number] ANGÉLICA Administration Amiodarone HCl 200 mg 05/17/20 09:00 05/21/20 09:28 Amiodarone 200 Mg Tab PO 200 mg BID ANGÉLICA Administration Apixaban 5 mg 05/17/20 21:00 05/21/20 09:31 Apixaban 5 Mg Tab PO 5 mg BID ANGÉLICA Administration Ascorbic Acid 500 mg 05/17/20 09:00 05/21/20 09:28 Ascorbic Acid 500 Mg Chewable Tablet PO 500 mg DAILY ANGÉLICA Administration Aspirin 81 mg 05/17/20 09:00 05/21/20 09:29 Aspirin 81 Mg Enteric Coated Tablet PO 81 mg DAILY ANGÉLICA Administration Atorvastatin Calcium 10 mg 05/17/20 21:00 05/20/20 20:50 Atorvastatin Calcium 10 Mg Tab PO 10 mg HS ANGÉLICA Administration Benzonatate 100 mg 05/18/20 14:41 05/21/20 09:46 Benzonatate 100 Mg Cap PO 100 mg Q4H PRN Administration Cough Budesonide 0.5 mg 05/18/20 06:30 05/21/20 10:28 Budesonide 0.5 Mg/2 Ml Neb NEB 0.5 mg BID-RT ANGÉLICA Administration Calcitriol 0.25 mcg 05/17/20 21:00 05/20/20 20:50 Calcitriol 0.25 Mcg Cap PO 0.25 mcg HS ANGÉLICA Administration Carvedilol 6.25 mg 05/18/20 09:00 05/21/20 09:29 Carvedilol 6.25 Mg Tab PO 6.25 mg BID ANGÉLICA Administration Cyanocobalamin 500 mcg 05/17/20 09:00 05/21/20 09:27 Cyanocobalamin (Vitamin B-12) 1,000 Mcg Tab PO 500 mcg DAILY ANGÉLICA Administration Folic Acid 1 mg 05/17/20 09:00 05/21/20 09:31 Folic Acid 1 Mg Tab PO 1 mg DAILY ANGÉLICA Administration Furosemide 40 mg 05/18/20 09:00 05/21/20 09:32 Furosemide 40 Mg/4 Ml Vial SLOW IVP 40 mg BID ANGÉLICA Administration Guaifenesin 600 mg 05/18/20 21:00 05/21/20 09:29 Guaifenesin Er 600 Mg Tab PO 600 mg Q12HR ANGÉLICA Administration Guaifenesin/Dextromethorphan 15 ml 05/21/20 11:39 05/21/20 12:39 Guaifenesin Dm 100-10/5 Ml Udcup PO 15 ml Q4H PRN Administration Cough Cefepime HCl 2 gm/ Sodium 100 mls @ 200 mls/hr 05/18/20 03:00 05/21/20 04:01 Chloride IVPB 100 mls 0300 ANGÉLICA Administration Isosorbide Mononitrate 15 mg 05/18/20 09:00 05/21/20 09:28 Isosorbide Mononitrate Er 30 Mg Tab PO 15 mg DAILY ANGÉLICA Administration Loratadine 10 mg 05/17/20 09:00 05/21/20 09:31 Loratadine 10 Mg Tab PO 10 mg DAILY ANGÉLICA Administration Mometasone Furoate/Formoterol Fumar 2 puff 05/17/20 07:00 05/21/20 10:28 Mometasone 200 Mcg/Formoterol 5 Mcg 120 Puff Inhaler INH 2 puff DAILY-RT ANGÉLICA Administration Pantoprazole Sodium 40 mg 05/17/20 09:00 05/21/20 09:31 Pantoprazole 40 Mg Tab PO 40 mg BID ANGÉLICA Administration Pyridoxine HCl 100 mg 05/17/20 09:00 05/21/20 09:31 Pyridoxine 50 Mg (B6) Tab PO 100 mg DAILY ANGÉLICA Administration Saccharomyces Boulardii 250 mg 05/21/20 09:00 05/21/20 09:28 Saccharomyces Boulardii 250 Mg Cap PO 250 mg DAILY ANGÉLICA Administration - Exam Heart: negative: RRR, no murmur, no gallops, no rubs, normal peripheral pulses, irregular, diminshed peripheral pulses, murmur present, II/IV, III/IV Respiratory: negative: CTAB, no wheezes, no rales, no ronchi, normal chest expansion, no tachypnea, normal percussion, rales, rhonchi, tachypneic, wheezes Gastrointestinal: negative: soft, non-tender, non-distended, normal bowel sounds, no palpable masses, no hepatomegaly, no splenomegaly, no bruit, no guarding, no rigidity, tender to palpation, distended, diminished bowl sounds, voluntary guarding Hosp A/P (1) Acute and chronic respiratory failure with hypoxia Code(s): J96.21 - ACUTE AND CHRONIC RESPIRATORY FAILURE WITH HYPOXIA Status: Acute (2) Acute systolic (congestive) heart failure Code(s): I50.21 - ACUTE SYSTOLIC (CONGESTIVE) HEART FAILURE Status: Acute (3) Fever Code(s): R50.9 - FEVER, UNSPECIFIED Status: Acute (4) Diabetes mellitus Code(s): E11.9 - TYPE 2 DIABETES MELLITUS WITHOUT COMPLICATIONS Status: Chronic Qualifiers: Diabetes mellitus type: type 2 (5) History of deep vein thrombosis Code(s): Z86.718 - PERSONAL HISTORY OF OTHER VENOUS THROMBOSIS AND EMBOLISM Status: Chronic (6) Hyperlipidemia Code(s): E78.5 - HYPERLIPIDEMIA, UNSPECIFIED Status: Chronic (7) Adenocarcinoma Code(s): C80.1 - MALIGNANT (PRIMARY) NEOPLASM, UNSPECIFIED Status: Acute (8) Pneumonia Code(s): J18.9 - PNEUMONIA, UNSPECIFIED ORGANISM Status: Acute - Plan Patient is a 74-year-old male with past medical history of A. fib, hyperlipidemia, hypertension, bladder cancer, GE adenocarcinoma who comes in with complaints of fever and hypoxia. Patient also has a history of DVTs and PEs and is on Eliquis. 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 He apparently underwent endoscopies which indicated residual microscopic disease. Scan was done indicated right cervicothoracic junction lymph node concerning for possible metastasis. Patient underwent a CT chest without contrast which indicated new left upper lobe lung mass suspicious for malignancy mediastinal lymphadenopathy. Patient is currently on antibiotics. 05/20 patient continues to be on high flow on antibiotics. will continue eliquis. pt on iv diuretics. 05/21 patient is currently on 3 L nasal cannula. We will transfer him to medical floor. Patient to go to lung biopsy once he is stable this most likely will be done as an outpatient. We will continue IV antibiotics.
[2020-05-21] MEDS: Calcitriol 0.25 MCG CAP PO SCH (21:12)
[2020-05-21] MEDS: Atorvastatin Calcium 10 MG TAB PO SCH (21:12)
[2020-05-22] MEDS: Cefepime 2 GM in Sodium Chloride 0.9% 100 ML IVPB SCH (03:50)
[2020-05-22 04:23] LABS: #Eosinphils 0.3 thou/uL (0.0-0.7); #Lymphocytes 0.4 thou/uL (1.20-3.40); #Monocytes 0.5 thou/uL (0.11-0.59); #Neutrophils 5.7 thou/uL (1.40-6.50); %Basophils 0.2 % (0.0-1.0); %Eosinophils 3.8 % (0.0-10.0); %Lymphocytes 5.2 % (21.0-51.0); %Monocytes 7.2 % (0.0-10.0); %Neutrophils 83.7 % (42.0-75.0); Hemoglobin 9.9 g/dL (14.0-18.0); Mean Corpuscular HGB CONC 32.2 g/dL (32.0-36.0); Mean Corpuscular Hemoglobin 34.5 pg (27.0-31.0); Platelet Count 198 thou/uL (130-400); RBC Distribution Width 16.6 % (11.5-14.5); Red Blood Cell (RBC) Count 2.87 mill/uL (4.70-6.10); White Blood Cell (WBC) Count 6.8 thou/uL (4.8-10.8)
[2020-05-22 04:47] LABS: Anion Gap 17 mmol/L (10-20); BUN (Urea Nitrogen) 55 mg/dL (8.4-25.7); Calc. Creatinine Clearance 32 mL/min (70-130); Calcium 8.6 mg/dL (7.8-10.44); Carbon Dioxide 23 mmol/L (23-31); Chloride 104 mmol/L (98-107); Estimated GFR-MDRD 26; Glucose 106 mg/dL (83-110); Sodium 141 mmol/L (136-145)
[2020-05-22] MEDS: Mometasone 200 MCG/Formoterol 5 MCG 120 PUFF INHALER INH SCH (07:44)
[2020-05-22] MEDS: Budesonide 0.5 MG/2 ML NEB NEB SCH ×2 (07:47→19:25)
[2020-05-22] MEDS: Aspirin 81 mg Enteric Coated Tablet PO SCH (09:06)
[2020-05-22] MEDS: Loratadine 10 MG TAB PO SCH (09:06)
[2020-05-22] MEDS: Carvedilol 6.25 MG TAB PO SCH ×2 (09:06→21:06)
[2020-05-22] MEDS: Amiodarone 200 MG TAB PO SCH ×2 (09:06→21:06)
[2020-05-22] MEDS: Cyanocobalamin (Vitamin B-12) 1,000 MCG TAB PO SCH (09:07)
[2020-05-22] MEDS: guaiFENesin ER 600 MG TAB PO SCH ×2 (09:07→21:06)
[2020-05-22] MEDS: Apixaban 5 MG TAB PO SCH ×2 (09:08→21:06)
[2020-05-22] MEDS: pyridOXINE 50 MG (B6) TAB PO SCH (09:09)
[2020-05-22] MEDS: Saccharomyces boulardii 250 MG CAP PO SCH (09:09)
[2020-05-22] MEDS: Folic Acid 1 MG TAB PO SCH (09:09)
[2020-05-22] MEDS: Ascorbic Acid 500 mg Chewable Tablet PO SCH (09:09)
[2020-05-22] MEDS: Furosemide 40 MG/4 ML VIAL SLOW IVP SCH ×2 (09:09→21:06)
[2020-05-22] MEDS ORDERED: Potassium Chloride 20 MEQ TAB PO SCH (09:15)
[2020-05-22] MEDS: Guaifenesin DM 100-10/5 ML UDCUP PO PRN (09:19)
--- NOTE | 2020-05-22 10:07 | PRG ---
DATE OF SERVICE: 05/22/2020 SUBJECTIVE: Mr. De La Rosa is a 74-year-old white male, who was initially admitted for shortness of breath. He was found to be in CHF and started on diuretics. During the initial workup, he was found to have left upper lobe lung mass. We are following him up for his acute kidney injury on top of his chronic renal failure. Please note, his renal function is stabilizing. OBJECTIVE: VITAL SIGNS: Blood pressure 117/58, heart rate 72, respiratory rate 18, temperature 97.8, O2 saturation 95%. GENERAL: Noted to be awake, alert, comfortable, not in distress. SKIN: Adequate turgor. HEENT: He has slightly pale conjunctivae. Anicteric sclerae. No neck mass. No carotid bruits. No JVD. CHEST: No deformities. LUNGS: Clear breath sounds. HEART: Normal sinus rhythm. No murmur. No gallops. No rubs. ABDOMEN: Globular, soft, nontender. No masses. EXTREMITIES: No edema. No deformities. MEDICATIONS: Medications of May 22, 2020, reviewed. LABORATORIES: Laboratories of May 22, 2020; white count 6.8, hemoglobin 9.9. Sodium 141, potassium 3, chloride 104, carbon dioxide 23, BUN 55, creatinine 2.43, glucose 106, calcium 8.6. ASSESSMENT AND PLAN: 1. Acute kidney injury on top of his chronic renal failure. Stabilizing renal function. Creatinine 2.43, is slightly lower from yesterday. He has currently stage IV chronic renal failure. He is tolerating current diuretic regimen. No indication for any dialytic intervention. 2. Shortness of breath-multifactorial etiology-consider also superimposed CHF. Currently, on IV diuretics. 3. Left upper lobe lung mass-continue supportive care for eventual biopsy of the lung mass. 4. Recheck CBC, basic met in a.m. ADDENDUM: Mild hypokalemia, p.r.n. potassium replacement. Job ID: [id number]
--- NOTE | 2020-05-22 12:17 | PRG ---
DATE OF SERVICE: 05/22/2020 SUBJECTIVE: Evert De La Rosa is on oncology floor. OBJECTIVE: VITAL SIGNS: Temperature 97, pulse 70, respirations 20, sats . GENERAL: He has a nonproductive cough, but no fever or chills. CHEST: Extensive crackles bilaterally. CARDIAC: Normal S1, S2. No gallops. ABDOMEN: No masses. LABORATORY DATA: Creatinine is 2.43. White count 6000. ASSESSMENT: Respiratory failure, renal failure, congestive heart failure, lung mass. PLAN: Not much Pulmonary to offer. Continue low-flow O2, neb treatments. Low-dose steroids. Await additional input from Oncology. Job ID: [id number]
--- NOTE | 2020-05-22 17:01 | PDOC.MOPN ---
Interval History: on nasal cannula, breathing much better. - Vital Signs Vital Signs: Vital Signs (12 hours) Temp Pulse Resp BP BP BP Pulse Ox 05/22/20 15:02 74 16 89 L 05/22/20 12:52 97.8 F 72 18 118/63 96 05/22/20 11:24 70 20 88 L 05/22/20 10:25 05/22/20 09:06 128/60 05/22/20 08:00 95 05/22/20 07:53 97.8 F 72 18 117/58 L 95 05/22/20 07:47 90 L 05/22/20 07:46 73 20 90 L 05/22/20 07:44 73 20 93 L Pulse Ox Pulse Ox Pulse Ox 05/22/20 15:02 05/22/20 12:52 05/22/20 11:24 05/22/20 10:25 94 L 95 98 05/22/20 09:06 05/22/20 08:00 05/22/20 07:53 05/22/20 07:47 05/22/20 07:46 05/22/20 07:44 Weight Weight 186 lb 12.8 oz Most Recent Monitor Data Heart Rate from ECG 72 NIBP 109/56 NIBP BP-Mean 73 Respiration from ECG 22 SpO2 97 - Physical Exam General: Alert, Oriented x3, No acute distress HEENT: Atraumatic, PERRLA, EOMI, Mucous membr. moist/pink Lungs: Other (diminished ABDIFATAH) Cardiovascular: Regular rate, Normal S1, Normal S2, No murmurs, Gallops, Rubs Abdomen: Normal bowel sounds, Soft, No tenderness, No hepatospenomegaly, No masses Extremities: No clubbing, No cyanosis, No edema, Normal pulses, No tenderness/swelling Neurological: Normal gait, Normal speech, Strength at 5/5 X4 ext, Normal tone, Sensation intact, Cranial nerves 3-12 NL, Reflexes 2+ Psych/Mental Status: Mental status NL, Mood NL - Labs Result Diagrams: 05/22/20 04:08 05/22/20 04:08 Lab results: Laboratory Results - last 24 hr 05/22/20 04:08: WBC 6.8, RBC 2.87 L, Hgb 9.9 L, Hct 30.8 L, MCV 107.0 H, MCH 34.5 H, MCHC 32.2, RDW 16.6 H, Plt Count 198, MPV 8.0, Neutrophils % 83.7 H, Lymphocytes % 5.2 L, Monocytes % 7.2, Eosinophils % 3.8, Basophils % 0.2, Neutrophils # 5.7, Lymphocytes # 0.4 L, Monocytes # 0.5, Eosinophils # 0.3, Basophils # 0.0 05/22/20 04:08: Sodium 141, Potassium 3.0 L, Chloride 104, Carbon Dioxide 23, Anion Gap 17, BUN 55 H, Creatinine 2.43 H, Estimated GFR (MDRD) 26, Glucose 106, Calcium 8.6 Status: lab reviewed by me A/P - Problem (1) Pneumonia Current Visit: Yes Code(s): J18.9 - Status: Acute (2) Gastroesophageal cancer Current Visit: Yes Code(s): C16.0 - Status: Chronic (3) Chronic lung disease Current Visit: No Code(s): J98.4 - Status: Chronic (4) Chronic systolic heart failure Current Visit: No Code(s): I50.22 - Status: Chronic - Plan Plan: 1. wean O2 if possible 2. follow-up Dr. Pandya next Friday to discuss plan
[2020-05-22] MEDS ORDERED: Cepastat Lozenges 1 LOZ PO PRN (17:46)
--- NOTE | 2020-05-22 18:25 | PDOC.HOSPP ---
- Subjective Encounter Date: 05/22/20 Encounter Time: 11:15 Subjective: Patient up in bed denies any complaints - Objective Vital Signs & Weight: Vital Signs (12 hours) Temp Pulse Resp BP BP BP Pulse Ox 05/22/20 15:02 74 16 89 L 05/22/20 12:52 97.8 F 72 18 118/63 96 05/22/20 11:24 70 20 88 L 05/22/20 10:25 05/22/20 09:06 128/60 05/22/20 08:00 95 05/22/20 07:53 97.8 F 72 18 117/58 L 95 05/22/20 07:47 90 L 05/22/20 07:46 73 20 90 L 05/22/20 07:44 73 20 93 L Pulse Ox Pulse Ox Pulse Ox 05/22/20 15:02 05/22/20 12:52 05/22/20 11:24 05/22/20 10:25 94 L 95 98 05/22/20 09:06 05/22/20 08:00 05/22/20 07:53 05/22/20 07:47 05/22/20 07:46 05/22/20 07:44 Weight Weight 186 lb 12.8 oz Most Recent Monitor Data Heart Rate from ECG 72 NIBP 109/56 NIBP BP-Mean 73 Respiration from ECG 22 SpO2 97 I&O: 05/21/20 05/22/20 05/23/20 06:59 06:59 06:59 Intake Total 1080 1000 Output Total 850 5400 900 Balance -850 -4320 100 Result Diagrams: 05/22/20 04:08 05/22/20 04:08 Hospitalist ROS - Review of Systems Cardiovascular: denies: chest pain, palpitations, orthopnea, paroxysmal noc. dyspnea, edema, light headedness, other Gastrointestinal: denies: nausea, vomiting, abdominal pain, diarrhea, constipation, melena, hematochezia, other Genitourinary: denies: dysuria, frequency, incontinence, hematuria, retention, other - Medication Medications: Active Medications Generic Name Dose Route Start Last Admin Trade Name Freq PRN Reason Stop Dose Admin Albuterol/Ipratropium 3 ml 05/17/20 22:30 05/22/20 15:02 Ipratropium/Albuterol Sulfate 3 Ml Neb NEB 3 ml [id number] ANGÉLICA Administration Amiodarone HCl 200 mg 05/17/20 09:00 05/22/20 09:06 Amiodarone 200 Mg Tab PO 200 mg BID ANGÉLICA Administration Apixaban 5 mg 05/17/20 21:00 05/22/20 09:08 Apixaban 5 Mg Tab PO 5 mg BID ANGÉLICA Administration Ascorbic Acid 500 mg 05/17/20 09:00 05/22/20 09:09 Ascorbic Acid 500 Mg Chewable Tablet PO 500 mg DAILY ANGÉLICA Administration Aspirin 81 mg 05/17/20 09:00 05/22/20 09:06 Aspirin 81 Mg Enteric Coated Tablet PO 81 mg DAILY ANGÉLICA Administration Atorvastatin Calcium 10 mg 05/17/20 21:00 05/21/20 21:12 Atorvastatin Calcium 10 Mg Tab PO 10 mg HS ANGÉLICA Administration Benzonatate 100 mg 05/18/20 14:41 05/21/20 09:46 Benzonatate 100 Mg Cap PO 100 mg Q4H PRN Administration Cough Budesonide 0.5 mg 05/18/20 06:30 05/22/20 07:47 Budesonide 0.5 Mg/2 Ml Neb NEB 0.5 mg BID-RT ANGÉLICA Administration Calcitriol 0.25 mcg 05/17/20 21:00 05/21/20 21:12 Calcitriol 0.25 Mcg Cap PO 0.25 mcg HS ANGÉLICA Administration Carvedilol 6.25 mg 05/18/20 09:00 05/22/20 09:06 Carvedilol 6.25 Mg Tab PO 6.25 mg BID ANGÉLICA Administration Cyanocobalamin 500 mcg 05/17/20 09:00 05/22/20 09:07 Cyanocobalamin (Vitamin B-12) 1,000 Mcg Tab PO 500 mcg DAILY ANGÉLICA Administration Folic Acid 1 mg 05/17/20 09:00 05/22/20 09:09 Folic Acid 1 Mg Tab PO 1 mg DAILY ANGÉLICA Administration Furosemide 40 mg 05/18/20 09:00 05/22/20 09:09 Furosemide 40 Mg/4 Ml Vial SLOW IVP 40 mg BID ANGÉLICA Administration Guaifenesin 600 mg 05/18/20 21:00 05/22/20 09:07 Guaifenesin Er 600 Mg Tab PO 600 mg Q12HR ANGÉLICA Administration Guaifenesin/Codeine Phosphate 10 ml 05/18/20 14:42 10/04/20 23:20 Guaifenesin/Codeine Phosphate 200 Mg/20 Mg 10 Ml Ud Cup PO 10 ml Q6H PRN Administration Cough Guaifenesin/Dextromethorphan 15 ml 05/21/20 11:39 05/22/20 09:19 Guaifenesin Dm 100-10/5 Ml Udcup PO 15 ml Q4H PRN Administration Cough Isosorbide Mononitrate 15 mg 05/18/20 09:00 05/22/20 09:07 Isosorbide Mononitrate Er 30 Mg Tab PO 15 mg DAILY ANGÉLICA Administration Loratadine 10 mg 05/17/20 09:00 05/22/20 09:06 Loratadine 10 Mg Tab PO 10 mg DAILY ANGÉLICA Administration Mometasone Furoate/Formoterol Fumar 2 puff 05/17/20 07:00 05/22/20 07:44 Mometasone 200 Mcg/Formoterol 5 Mcg 120 Puff Inhaler INH 2 puff DAILY-RT ANGÉLICA Administration Pantoprazole Sodium 40 mg 05/17/20 09:00 05/22/20 09:09 Pantoprazole 40 Mg Tab PO 40 mg BID ANGÉLICA Administration Pyridoxine HCl 100 mg 05/17/20 09:00 05/22/20 09:09 Pyridoxine 50 Mg (B6) Tab PO 100 mg DAILY ANGÉLICA Administration Saccharomyces Boulardii 250 mg 05/21/20 09:00 05/22/20 09:09 Saccharomyces Boulardii 250 Mg Cap PO 250 mg DAILY ANGÉLICA Administration Throat Lozenges 1 chris 05/22/20 17:46 05/22/20 18:07 Cepastat Lozenges 1 Chris PO 1 chris PRN PRN Administration .SORE THROAT - Exam Neck: negative: supple, symmetric, no JVD, no thyromegaly, no lymphadenopathy, no carotid bruit, JVD Heart: negative: RRR, no murmur, no gallops, no rubs, normal peripheral pulses, irregular, diminshed peripheral pulses, murmur present, II/IV, III/IV Respiratory: negative: CTAB, no wheezes, no rales, no ronchi, normal chest expansion, no tachypnea, normal percussion, rales, rhonchi, tachypneic, wheezes Gastrointestinal: negative: soft, non-tender, non-distended, normal bowel sounds, no palpable masses, no hepatomegaly, no splenomegaly, no bruit, no guarding, no rigidity, tender to palpation, distended, diminished bowl sounds, voluntary guarding Hosp A/P (1) Acute and chronic respiratory failure with hypoxia Code(s): J96.21 - ACUTE AND CHRONIC RESPIRATORY FAILURE WITH HYPOXIA Status: Acute (2) Acute systolic (congestive) heart failure Code(s): I50.21 - ACUTE SYSTOLIC (CONGESTIVE) HEART FAILURE Status: Acute (3) Fever Code(s): R50.9 - FEVER, UNSPECIFIED Status: Acute (4) Diabetes mellitus Code(s): E11.9 - TYPE 2 DIABETES MELLITUS WITHOUT COMPLICATIONS Status: Chronic Qualifiers: Diabetes mellitus type: type 2 (5) History of deep vein thrombosis Code(s): Z86.718 - Status: Chronic (6) Hyperlipidemia Code(s): E78.5 - HYPERLIPIDEMIA, UNSPECIFIED Status: Chronic (7) Adenocarcinoma Code(s): C80.1 - MALIGNANT (PRIMARY) NEOPLASM, UNSPECIFIED Status: Acute (8) Pneumonia Code(s): J18.9 - PNEUMONIA, UNSPECIFIED ORGANISM Status: Acute - Plan Patient is a 74-year-old male with past medical history of A. fib, hyperlipidemia, hypertension, bladder cancer, GE adenocarcinoma who comes in with complaints of fever and hypoxia. Patient also has a history of DVTs and PEs and is on Eliquis. 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 He apparently underwent endoscopies which indicated residual microscopic disease. Scan was done indicated right cervicothoracic junction lymph node concerning for possible metastasis. Patient underwent a CT chest without contrast which indicated new left upper lobe lung mass suspicious for malignancy mediastinal lymphadenopathy. Patient is currently on antibiotics. 05/20 patient continues to be on high flow on antibiotics. will continue eliquis. pt on iv diuretics. 05/21 patient is currently on 3 L nasal cannula. We will transfer him to medical floor. Patient to go to lung biopsy once he is stable this most likely will be done as an outpatient. We will continue IV antibiotics. 05/22 patient up in bed feels well currently on 4 L nasal cannula. Will change his antibiotics to Omnicef. Patient has taken Omnicef in the past. Will discharge patient in a.m. if okay with all specialties. Patient will need home oxygen. Patient will have work-up for biopsy as outpatient.
[2020-05-22] MEDS: Atorvastatin Calcium 10 MG TAB PO SCH (21:06)
[2020-05-22] MEDS: Calcitriol 0.25 MCG CAP PO SCH (21:06)
[2020-05-22] MEDS: Cefdinir 300 MG CAP PO SCH (21:06)
[2020-05-22 22:01] VITALS: TEMP 97.7
[2020-05-23 06:19] LABS: #Basophils 0.1 thou/uL (0.0-0.2); #Eosinphils 0.3 thou/uL (0.0-0.7); #Lymphocytes 0.2 thou/uL (1.20-3.40); #Monocytes 0.6 thou/uL (0.11-0.59); #Neutrophils 5.9 thou/uL (1.40-6.50); %Basophils 1.2 % (0.0-1.0); %Eosinophils 4.6 % (0.0-10.0); %Lymphocytes 2.9 % (21.0-51.0); %Neutrophils 83.3 % (42.0-75.0); Hemoglobin 9.7 g/dL (14.0-18.0); Mean Corpuscular HGB CONC 32.9 g/dL (32.0-36.0); Mean Corpuscular Hemoglobin 35.1 pg (27.0-31.0); Mean Platelet Volume 8.2 fL (7.4-10.4); Platelet Count 193 thou/uL (130-400); RBC Distribution Width 16.2 % (11.5-14.5); Red Blood Cell (RBC) Count 2.78 mill/uL (4.70-6.10); White Blood Cell (WBC) Count 7.1 thou/uL (4.8-10.8)
[2020-05-23 06:39] LABS: Anion Gap 16 mmol/L (10-20); BUN (Urea Nitrogen) 56 mg/dL (8.4-25.7); Calc. Creatinine Clearance 30 mL/min (70-130); Calcium 8.4 mg/dL (7.8-10.44); Carbon Dioxide 23 mmol/L (23-31); Chloride 105 mmol/L (98-107); Estimated GFR-MDRD 24; Glucose 93 mg/dL (83-110); Potassium 3.4 mmol/L (3.5-5.1); Sodium 141 mmol/L (136-145)
[2020-05-23] MEDS: Mometasone 200 MCG/Formoterol 5 MCG 120 PUFF INHALER INH SCH (08:06)
[2020-05-23] MEDS: Budesonide 0.5 MG/2 ML NEB NEB SCH (08:06)
--- NOTE | 2020-05-23 08:46 | PRG ---
DATE OF SERVICE: 05/23/2020 SUBJECTIVE: Mr. De La Rosa is a 74-year-old white male, who was admitted for shortness of breath. He was found to have CHF. He was also found to have an incidental left upper lobe mass. We are following him up for his acute kidney injury on top of his chronic renal failure. He is currently on a diuretic regimen due to the CHF. He voices no new complaints. He denies any chest pain or shortness of breath. OBJECTIVE: VITAL SIGNS: Blood pressure is noted at 121/60 with heart rate of 71, O2 saturation is 96%, respiratory rate 16. GENERAL: Awake, sitting comfortable, not in overt distress. SKIN: Adequate turgor. HEENT: Slightly pale conjunctivae. Anicteric sclerae. NECK: No neck mass. No carotid bruits. No JVD. CHEST: No deformities. LUNGS: Decreased breath sounds. HEART: Normal sinus rhythm. No murmurs. No gallops. No rubs. ABDOMEN: Globular, soft, nontender. No masses. EXTREMITIES: Trace edema. MEDICATIONS: May 23, 2020, were reviewed. LABORATORY DATA: May 23, 2020; white count 7.1, hemoglobin 9.7. Sodium 141, potassium 3.4, chloride 105, carbon dioxide 23, BUN 56, creatinine 2.58, GFR 24 mL/minute, glucose 93, and calcium 8.4. ASSESSMENT AND PLAN: 1. Congestive heart failure - currently on IV diuretics. Continue current diuretic regimen. 2. Acute kidney injury/chronic renal failure. There is a superimposed prerenal azotemia on top of his chronic renal failure. Creatinine is acceptable. Continue to monitor. We will adjust Lasix as needed. If the patient is discharged, we will follow him up [facility]. 3. Left upper lobe lung mass - Oncology following for eventual biopsy of the said mass. Agree with current management. Job ID: [id number]
[2020-05-23] MEDS: Furosemide 40 MG/4 ML VIAL SLOW IVP SCH (09:30)
[2020-05-23] MEDS: Aspirin 81 mg Enteric Coated Tablet PO SCH (09:31)
[2020-05-23] MEDS: guaiFENesin ER 600 MG TAB PO SCH (09:31)
[2020-05-23] MEDS: Amiodarone 200 MG TAB PO SCH (09:31)
[2020-05-23] MEDS: Cyanocobalamin (Vitamin B-12) 1,000 MCG TAB PO SCH (09:32)
[2020-05-23] MEDS: pyridOXINE 50 MG (B6) TAB PO SCH (09:32)
[2020-05-23] MEDS: Folic Acid 1 MG TAB PO SCH (09:32)
[2020-05-23] MEDS: Ascorbic Acid 500 mg Chewable Tablet PO SCH (09:33)
[2020-05-23] MEDS: Cefdinir 300 MG CAP PO SCH (09:33)
[2020-05-23] MEDS: Loratadine 10 MG TAB PO SCH (09:34)
[2020-05-23] MEDS: Saccharomyces boulardii 250 MG CAP PO SCH (09:34)
[2020-05-23] MEDS: Carvedilol 6.25 MG TAB PO SCH (09:34)
[2020-05-23] MEDS: Apixaban 5 MG TAB PO SCH (09:35)
[2020-05-23 10:34] VITALS: BP 112/58
--- NOTE | 2020-05-23 11:15 | PRG ---
DATE OF SERVICE: 05/23/2020 OBJECTIVE: VITAL SIGNS: A 74-year-old gentleman who this morning sats 88% on room air, pulse 97, temperature 97.7, blood pressure 121/60, respiratory rate 18. CHEST: No wheezing. No crackles. CARDIAC: Normal S1 and S2. No gallops. ABDOMEN: No masses. LABORATORY DATA: Creatinine is 2.58. IMPRESSION: Respiratory failure, hypoxemia, abnormal chest x-ray, carcinoma of the esophagus, chronic obstructive pulmonary disease. PLAN: He is going to require low-flow O2 for home. Disposition as per primary care physician. He is going to undergo outpatient workup for his lung mass. Continue Dulera, neb treatments, and supportive care. Job ID: [id number]
[2020-05-23] MEDS ORDERED: Potassium Chloride 20 MEQ TAB PO SCH (13:30)
[2020-05-23 16:11] LABS: Bacteria/HPF None Seen HPF (None Seen); Bilirubin Negative (Negative); Blood, Urine 2+ (Negative); Clarity Clear (Clear); Glucose, Urine (Dipstick) Normal (Negative); Ketone, Urine Negative (Negative); Leukocyte Negative Leu/uL (Negative); Nitrite Negative (Negative); Protein, Urine (Dipstick) 30 mg/dL (Neg-Trace); Renal Epithelial 0-3 HPF (None Seen); Specific Gravity, Urine 1.011 (1.002-1.036); Squamous Epithelial None Seen HPF (0-3); Urobilinogen Normal mg/dL (Less than 2); pH, Urine 6.5 (5.0-9.0)
--- NOTE | 2020-05-23 16:23 | EKG ---
Test Reason : Blood Pressure : / mmHG Vent. Rate : 072 BPM Atrial Rate : 072 BPM P-R Int : 232 ms QRS Dur : 188 ms QT Int : 474 ms P-R-T Axes : 000 -05 225 degrees QTc Int : 519 ms Electronic atrial pacemaker Left bundle branch block Abnormal ECG Confirmed by MEL KAUR DO [id number]), editor managing director SARA SEPULVEDA ([id number] on 05/23/2020 4:22:31 PM Referred By: Confirmed By:MEL KAUR DO
--- NOTE | 2020-05-24 02:00 | DIS ---
DATE OF ADMISSION: 05/16/2020 DATE OF DISCHARGE: 05/23/2020 DISCHARGE DIAGNOSES: As of the following; 1. Acute on chronic respiratory failure with hypoxia. 2. Acute systolic heart failure. 3. Fever. 4. Diabetes. 5. Adenocarcinoma. 6. Left upper lobe lung mass. 7. Obstructive pneumonia. 8. History of DVT. HOSPITAL COURSE: The patient is a very pleasant 74-year-old male with history of atrial fibrillation, hyperlipidemia, hypertension, bladder cancer, and GE adenocarcinoma, who came in with complaints of fever and hypoxia. At this time, the patient underwent a CT, which indicated a new left upper lobe lung mass. This was concerning for malignancy. The patient was seen by Pulmonology and was initially put on IV antibiotics. He was also seen by Oncology. The patient continued to improve. He initially was on high-flow and then was downgraded to nasal cannula. The patient will require oxygenation at home. He will follow up as an outpatient with his oncologist for further evaluation of the lung findings. The patient has taken Omnicef in the past. We will continue that. He was on cefepime prior to that. While the patient was in the hospital, he was also diuresed. MEDICATIONS: His home medications will be as of the following. He is going to be on; 1. Eliquis 5 mg b.i.d. 2. Amiodarone 200 mg b.i.d. 3. Cefdinir 300 mg b.i.d. for the next couple days, total of 10 days. 4. Albuterol as needed. 5. Probiotic. 6. Carvedilol 6.25 b.i.d. 7. Advair 1 puff twice a day. 8. Aspirin 81 mg daily. 9. Isosorbide 50 mg daily. 10. Simvastatin 20 mg at bedtime. 11. Protonix 1 tablet b.i.d. 12. Multivitamin. PHYSICAL EXAMINATION: VITAL SIGNS: Temperature of 98.8, heart rate 61, respiratory rate 18, O2 saturations 93% on 3 L, and blood pressure 112/58. GENERAL: He is awake, alert, and oriented x3. Does not appear in distress. CV: S1 and S2 present. No murmurs, rubs, or gallops. ABDOMEN: Soft and nontender. Bowel sounds are present x2. Again, the patient will be discharged home. He will follow up with primary and also with his oncologist next week. He will also follow up with Pulmonary. Job ID: [id number]
== END 2020-05-23 17:09 | disposition home or self-care (01) | DRG 291 ==
LOC: ERS 21:22 → 2NO 22:51 → IMCU/EMU 05-18 13:09 → ONC 05-21 14:15
PROVIDERS: ADMIT Internal Medicine; ATTEND Internal Medicine
DX: I13.0 Hypertensive heart and chronic kidney disease with heart failure and stage 1 through stage 4 chronic kidney disease, or unspecified chronic kidney disease (principal); J96.21 Acute and chronic respiratory failure with hypoxia; I50.23 Acute on chronic systolic (congestive) heart failure; J18.8 Other pneumonia, unspecified organism; C78.02 Secondary malignant neoplasm of left lung; J44.0 Chronic obstructive pulmonary disease with (acute) lower respiratory infection; C16.0 Malignant neoplasm of cardia; I48.20 Chronic atrial fibrillation, unspecified; N25.81 Secondary hyperparathyroidism of renal origin; N17.9 Acute kidney failure, unspecified; I42.8 Other cardiomyopathies; Z20.828 Contact with and (suspected) exposure to other viral communicable diseases; E11.9 Type 2 diabetes mellitus without complications; E78.5 Hyperlipidemia, unspecified; K21.9 Gastro-esophageal reflux disease without esophagitis; N18.30 Chronic kidney disease, stage 3 unspecified; I25.10 Atherosclerotic heart disease of native coronary artery without angina pectoris; I34.0 Nonrheumatic mitral (valve) insufficiency; E87.6 Hypokalemia; Z86.718 Personal history of other venous thrombosis and embolism; Z88.2 Allergy status to sulfonamides; Z88.1 Allergy status to other antibiotic agents; Z88.8 Allergy status to other drugs, medicaments and biological substances; Z95.0 Presence of cardiac pacemaker; Z90.5 Acquired absence of kidney; Z85.51 Personal history of malignant neoplasm of bladder; Z95.810 Presence of automatic (implantable) cardiac defibrillator; Z91.040 Latex allergy status; Z79.899 Other long term (current) drug therapy; Z79.82 Long term (current) use of aspirin; Z79.01 Long term (current) use of anticoagulants; Z86.711 Personal history of pulmonary embolism
CPT/HCPCS: 36415; 71045; 71250; 80048; 81001; 82805; 83735; 83880; 85014; 85018; 85025; 85049; 85379; 85652; 86140; 93005; 93306; 93798; 93970; 94640; 94760; J0692; J1642; J1650; J1940; J2930; J3370; J3490; J7030; J7620; J7626; P9047; U0002

== ENCOUNTER 2020-06-18 06:52 | Inpatient (IN) | payer MEDICARE, OTHER ==
[2020-06-18 08:09] LABS: #Eosinphils 0.2 thou/uL (0.0-0.7); #Lymphocytes 0.3 thou/uL (1.20-3.40); #Monocytes 0.6 thou/uL (0.11-0.59); #Neutrophils 7.4 thou/uL (1.40-6.50); %Eosinophils 1.8 % (0.0-10.0); %Lymphocytes 3.3 % (21.0-51.0); %Monocytes 7.6 % (0.0-10.0); %Neutrophils 87.4 % (42.0-75.0); Hemoglobin 7.8 g/dL (14.0-18.0); Mean Corpuscular Hemoglobin 35.8 pg (27.0-31.0); Mean Platelet Volume 7.6 fL (7.4-10.4); Platelet Count 198 thou/uL (130-400); RBC Distribution Width 17.5 % (11.5-14.5); Red Blood Cell (RBC) Count 2.18 mill/uL (4.70-6.10); White Blood Cell (WBC) Count 8.5 thou/uL (4.8-10.8)
[2020-06-18] MEDS ORDERED: Morphine 4 MG/ML VIAL ONE ×2 (08:15→11:25)
[2020-06-18] MEDS ORDERED: Ondansetron PF 4 MG/2 ML Vial ONE ×2 (08:15→11:25)
[2020-06-18 08:39] LABS: ALT (SGPT) 39 U/L (8-55); AST (SGOT) 37 U/L (5-34); Albumin 2.7 g/dL (3.4-4.8); Alkaline Phosphatase 84 U/L (40-110); Anion Gap 17 mmol/L (10-20); BUN (Urea Nitrogen) 42 mg/dL (8.4-25.7); Bilirubin, Total 0.6 mg/dL (0.2-1.2); Calc. Creatinine Clearance 0 mL/min (70-130); Calcium 8.5 mg/dL (7.8-10.44); Carbon Dioxide 22 mmol/L (23-31); Chloride 102 mmol/L (98-107); Globulin 3.4 g/dL (2.4-3.5); Glucose 131 mg/dL (83-110); Potassium 4.4 mmol/L (3.5-5.1); Protein, Total 6.1 g/dL (5.8-8.1); Sodium 137 mmol/L (136-145)
[2020-06-18 08:59] LABS: CKMB 2.2 ng/mL (0-6.6)
--- NOTE | 2020-06-18 10:02 | CT ---
CT ABDOMEN AND PELVIS WITHOUT CONTRAST: 06/18/20 PROVIDED CLINICAL HISTORY: Decreased urinary output and back pain. COMPARISON: 01/25/2019 FINDINGS: There are partially visualized bilateral pleural fluid collections with patchy bilateral air space di sease and interstitial thickening. The liver is diffusely hyperdense. The spleen, pancreas and adrenal glands demonstrate an unremarkabl e CT appearance. Gallstones are seen. The right kidney is surgically absent. There is severe left hydronephrosis and left hydroureter. The urinary bladder is surgically absent with urinary diversion changes seen (by [facility] The left ureter is conspicuous dilated to the region of the pelvis. 4 mm calculus in the distal u reter near the junction with the pouch. The urinary reservoir does not contain a significant amount of fluid. There is air within the pouch. There is perinephric fat stranding on the left. There is no bowel dilatation, additional fat strandin g, free fluid or free air apparent. Vascular calcifications are noted involving the abdominal aorta. The osseous structures demonstrate no concerning lytic or blastic lesions. IMPRESSION: 1. Severe left hydroureteronephrosis, with a 4 mm calculus within the distal left ureter near the melina ction with the pouch. 2. Diffusely hyperdense liver, which can be seen in the setting of amiodarone therapy. Metabolic stor age diseases can also produce this appearance. 3. Cholelithiasis. 4. Bilateral pleural fluid and bibasilar interstitial and air space disease that may reflect pneumoni a or edema. POS: EVANGELINA
--- NOTE | 2020-06-18 11:27 | RAD ---
PORTABLE CHEST: 06/18/20 PROVIDED CLINICAL HISTORY: Difficulty with urination. COMPARISON: 05/20/2020 FINDINGS: The cardiac silhouette remains enlarged. Left subclavian cardiac pacing device is again noted in lobito lar position. Mass-like parenchymal opacity overlying the left upper lung zone is redemonstrated, stable. Spiculate d mass-like opacity in the right suprahilar region is redemonstrated. Patchy lower lung zone intersti tial opacities are again seen. No pleural fluid or pneumothorax apparent. Right subclavian implanted port is again seen in similar position. IMPRESSION: Persistent mass-like areas of parenchymal opacity involving both lungs, similar to prior. POS: EVANGELINA
[2020-06-18] MEDS ORDERED: Cefepime 0.5 GM in Admixture Fee 1 EACH IVPB SCH (11:30)
[2020-06-18] MEDS ORDERED: EPINEPHrine 1 MG/10 ML Abboject SYRINGE ONE (11:50)
[2020-06-18] MEDS ORDERED: Calcium Chloride 1 GM/10 ML Abboject SYRINGE ONE (11:50)
[2020-06-18] MEDS ORDERED: Sodium Bicarb 50 MEQ/50 ML Abboject 8.4% SYRINGE ONE (11:50)
[2020-06-18 11:56] LABS: Troponin I 0.037 ng/mL (< 0.028)
--- NOTE | 2020-06-18 11:56 | CT ---
CT THORACIC SPINE: 06/18/20 PROVIDED CLINICAL HISTORY: Back pain. COMPARISON: Chest CT from 05/17/2020 FINDINGS: Thoracic alignment appears normal. Thoracic vertebral body heights appear preserved. No concerning ly tic or blastic bony lesions are seen. There is no evidence for high-grade central canal stenosis by C T. Extensive pulmonary parenchymal findings as previously described with interval enlargement of left upper lobe and right suprahilar masses. Extensive emphysematous changes and interval increase in sushil ateral pleural fluid. Superimposed consolidation at the left lung base and interstitial thickening at both lung bases. IMPRESSION: 1. No evidence for an acute osseous abnormality. 2. Extensive lung findings which appear worsened since chest CT from 05/17/2020. Non-emergent follow- up dedicated chest CT is recommended. POS: EVANGELINA
--- NOTE | 2020-06-18 12:02 | CT ---
CT LUMBAR SPINE: 06/18/20 PROVIDED CLINICAL HISTORY: Back pain. FINDINGS: Five [id number]-[id number] lumbar type vertebral bodies are demonstrated. Lumbar alignment appears normal. Vertebral body heights are preserved. There is no evidence for fracture. Disk space height loss and e ndplate degenerative changes involving L4-L5 and, to a lesser extent, L3-L4. Bilateral facet arthriti s, mild in degree, noted at these levels. There is no evidence for high-grade central canal stenosis. Moderate chronic bilateral foraminal narrowing at L4-L5 and at L5-S1 and mild bilaterally at L3-L4. Better seen on the current study than on the CT of the abdomen and pelvis due to difference in positi oning of the ureteral interface with respect to the pouch and adjacent beam hardening artifact from m etallic clips is a 4 mm calculus within the distal right ureter. IMPRESSION: 1. No evidence for an acute osseous abnormality. 2. Degenerative changes involving the lumbar spine. 3. Better seen on this study is a 4 mm calculus within the distal right ureter, near the junction wit h the pouch. POS: EVANGELINA
[2020-06-18] MEDS ORDERED: Morphine 4 MG/ML VIAL SLOW IVP PRN (12:26)
[2020-06-18] MEDS ORDERED: Fentanyl 100 MCG/2 ML VIAL SLOW IVP PRN ×2 (12:27)
[2020-06-18] MEDS ORDERED: Cefepime 0.5 GM in Sodium Chloride 0.9% 100 ML IVPB SCH (12:30)
[2020-06-18] MEDS ORDERED: Acetaminophen 325 MG TAB PO PRN (12:39)
[2020-06-18] MEDS ORDERED: Senokot S 8.6-50 MG TAB PO PRN (12:39)
[2020-06-18] MEDS ORDERED: Ondansetron PF 4 MG/2 ML Vial IVP PRN (12:39)
--- NOTE | 2020-06-18 14:59 | HP ---
CHIEF COMPLAINT: Left flank pain. HISTORY OF PRESENT ILLNESS: The patient is a very pleasant 74-year-old male, who was just recently discharged from the hospital on 05/24. His recent diagnosis was acute on chronic respiratory failure with hypoxia. He is on 3 L of nasal cannula at home. Also, left upper lobe lung mass, which was new and history of DVTs. He came into the hospital for pain to his left flank area. The patient states that he fell around . He got up to go to the bathroom and went up to sit in the chair and this time, he lost his balance and fell and hit his left flank area. He initially attributed this pain to his fall. However, the also noticed for the past couple of days, he has been having some decreased urine output. The patient denies any fevers or chills, any nausea, vomiting, or diarrhea. He decided to come into the hospital for further evaluation. In regard to the left lung mass. I did talk with the patient in regard to this. The patient states that he did see Oncology, there is going to be no intervention given his high risk for requiring intubation and pneumothorax. The patient in the ED underwent a CT of abdomen and pelvis, which indicated a severe left hydroureteronephrosis with a 4 mm calculus within the distal left ureter near the junction of the pouch. PAST MEDICAL HISTORY: Heart failure, atrial fibrillation, GERD, hyperlipidemia, DVTs, hypertension, COPD, GEJ adenocarcinoma, bladder cancer, and anemia. PAST SURGICAL HISTORY: He has had ablation x2, pacemaker defibrillator, artificial bladder, bladder and prostate resection, nephrectomy of the right, and EGD showing residual nodule of the GE in 05/2019. EGD done on December of 2019, 3 mm nodule of the GEJ, which indicated fibrosis seen in the distal esophagus secondary to radiation treatment. SOCIAL HISTORY: Denies any alcohol use, drug use, or smoking history. He is a full code. I did discuss this with the patient, he wants to be resuscitated. He lives at home with his . ALLERGIES: HE IS ALLERGIC TO BACITRACIN, BACTRIM, CODEINE, ERYTHROMYCIN, LASIX, LEVAQUIN, PHENERGAN, SULFA, PROMETHAZINE, AND TRIMETHOPRIM. FAMILY HISTORY: No history of heart disease or strokes. MEDICATIONS: He is on; 1. Protonix 40 mg twice a day. 2. Simvastatin 20 mg daily. 3. Aspirin 81 mg daily. 4. Eliquis 5 mg b.i.d. 5. Isosorbide 5 mg daily. 6. Carvedilol 6.25 twice a day. 7. Lasix 60 mg daily. REVIEW OF SYSTEMS: All negative except for the ones mentioned in the HPI. PHYSICAL EXAMINATION: VITAL SIGNS: As of the following; temperature of 98.7, respirations of 19, blood pressure 125/64, heart rate 70, and O2 saturations 98% on room air. GENERAL: He is awake, alert, and oriented x3. He does appear ill. CV: S1 and S2 present. No murmurs, rubs, gallops. LUNGS: Clear to auscultation. No rhonchi or wheezes noted. ABDOMEN: Obese. Bowel sounds are present x2. He does have pain upon palpation to his left lower abdominal area and some into the left flank area. He does have an Henry pouch to his right stoma to his right lower abdomen area. EXTREMITIES: His right lower extremity is greater than the left, which is not new. He does have +1 to +2 pitting edema. LABORATORY RESULTS: As of the following; WBCs of 8.5, hemoglobin of 7.8, hematocrit of 23.7, and platelets of 198. Chemistry; sodium of 137, potassium of 4.4, BUN of 42, and creatinine of 2.65. He had mild elevated troponins. However, he has no chest pain. Mildly elevated AST at 37. He did have a CT of abdomen and pelvis, which indicated severe left hydroureteronephrosis with 4 mm calculus within the distal left ureter in the junction with the pouch. Diffuse hyperdense liver, which was seen in the setting of amiodarone, cholelithiasis, and bilateral pleural effusion. He also had a CT thoracic showed extensive lung findings, which appears to be worsened since the CT from April 2020. Also, the lumbar spine CT indicated no evidence of acute osseous abnormalities, just a 4 mm calculus that was noted in the distal right ureter. However, from what I am understanding, he had a right nephrectomy and he does have a left kidney with significant hydronephrosis. However, the stone is noted on the right side, which could be where the junction is. He also had a chest x-ray, which indicated persistent mass in both lungs. ASSESSMENT AND PLAN: The patient is a 74-year-old male, who presents to the hospital with left flank pain. 1. Left hydronephrosis, most likely secondary to an obstructing stone. Urology has been notified. We will hold Eliquis for today for any possible procedures. The patient has decreased urine output. We will put him on a regular diet. N.P.O. after midnight tomorrow. I will also start him on some antibiotics. 2. Acute kidney injury on chronic kidney disease, stage 3. We will continue to monitor. Nephrology has been consulted. 3. Mild elevated troponins. This appears to be his baseline most likely related to demand related. 4. Left lung mass. The patient is aware of this and no intervention will be done about this. The patient is currently not in any chemotherapy. 5. I discussed code status with this patient, he wants to be full code for now. 6. Anemia. We will continue to monitor. Job ID: [id number]
--- NOTE | 2020-06-18 15:58 | CON ---
DATE OF CONSULTATION: 06/18/2020 REQUESTING PHYSICIAN: Dr. Cueto. REASON FOR CONSULTATION: Left hydronephrosis and left ureteral stone in a solitary kidney. HISTORY OF PRESENT ILLNESS: Mr. De La Rosa is a 74-year-old male with past medical history significant for bladder cancer, status post radical cystectomy and subsequent right nephroureterectomy. The patient has a solitary kidney and has an Howell pouch urinary diversion, through which he catheterizes four times per day. The patient also has recent diagnosis of chronic respiratory failure with hypoxia. He is on 3 L nasal cannula at home. He has a left upper lobe lung mass, which is new. He has a history of DVTs and is on Eliquis. The patient presented to the hospital for acute onset of left-sided flank pain. He had a fall at home three days prior. He reports that he did hit his left flank area. Over the past couple of days, he has had significantly decreased urine output. No gross hematuria. Currently, his pain is a 5/10. This has ranged from 3 to 7 since he has been in the hospital. His pouch was catheterized at presentation, and there was minimal urine output. REVIEW OF SYSTEMS: Full 12-point review of systems was performed and is negative other than that mentioned in the HPI. PAST MEDICAL HISTORY: CHF, atrial fibrillation, gastroesophageal reflux disease, hyperlipidemia, DVT, hypertension, COPD, GE junction adenocarcinoma, urothelial carcinoma of the bladder, and chronic anemia. PAST SURGICAL HISTORY: Ablation x2, pacemaker defibrillator, radical cystectomy with Howell pouch urinary diversion, right nephroureterectomy, and EGD. FAMILY HISTORY: Noncontributory. SOCIAL HISTORY: No alcohol, tobacco, or illicit drugs. He is full code. He lives at home with his between [facility]. ALLERGIES: BACITRACIN, BACTRIM, CODEINE, ERYTHROMYCIN, LASIX, LEVAQUIN, PHENERGAN, SULFA, PROMETHAZINE, AND TRIMETHOPRIM. MEDICATIONS: Protonix 40 mg b.i.d., simvastatin 20 mg daily, aspirin 81 mg daily, Eliquis 5 mg b.i.d., isosorbide 5 mg daily, carvedilol 6.25 mg b.i.d., and Lasix 60 mg daily. PHYSICAL EXAMINATION: VITAL SIGNS: Temperature 98.7, respirations 18, blood pressure 125/64, heart rate 70, and oxygen saturation 98% on room air. GENERAL: He is awake and alert and oriented x3. No apparent distress. CARDIOVASCULAR: Regular rate and rhythm. PULMONARY: Breathing unlabored. ABDOMEN: Soft, nontender/nondistended. No CVA tenderness. No suprapubic tenderness to palpation. Small stoma in the midline, appears to be patent. EXTREMITIES: Warm and well perfused. 1 to 2+ pitting edema. LABORATORY DATA: White blood cell 8.5, hemoglobin 7.8, hematocrit 23.7, and platelets 198. Sodium 137, potassium 4.4, BUN 42, and creatinine 2.65. Troponin slightly elevated. RADIOLOGY DATA: CT of the abdomen and pelvis demonstrates left hydroureteronephrosis and periureteral and perinephric stranding. There is increased density in the distal left ureter near the junction with the pouch concerning for a possible 4 mm stone. These films were reviewed and agreed with radiologist's interpretation. ASSESSMENT: A 74-year-old male with left hydronephrosis, solitary kidney, decreased urine output, history of urothelial carcinoma of the bladder, now with a new lung mass, recent diagnosis of GE junction adenocarcinoma. PLAN: The patient has significant hydronephrosis of his solitary left kidney. This is possibly secondary to a stone, although upon review of the films, there is an increased density in that area, but there is a significant focal increased density in that area concerning for debris versus a stone. The patient continues to have minimal urine output. His creatinine is currently at his baseline. He has no electrolyte abnormalities. He is hemodynamically stable. He will, however, likely require decompression of this left collecting system. Unfortunately, given the fact that he has an Howell pouch urinary diversion, the only way to feasibly do this is to place a left percutaneous nephrostomy. The patient is on Eliquis and he took a dose this morning. For now, we will monitor him overnight. Plan for left percutaneous nephrostomy placement tomorrow. This was discussed with Radiology. If the patient's clinical condition worsens, this may need to be performed sooner than that, although ideally, we would have more time off his Eliquis. The patient is a primary patient of Dr. Garcia. Dr. Garcia will be updated tomorrow and will likely resume his care if he is available. Job ID: [id number]
[2020-06-18] MEDS ORDERED: Acetaminophen 325 MG TAB ONE (17:22)
[2020-06-18] MEDS ORDERED: PROTHROMBIN COMPLEX CONCENTRATE IV SCH ×2 (18:45→19:00)
[2020-06-18] MEDS ORDERED: Fentanyl 100 MCG/2 ML VIAL ONE (18:57)
[2020-06-18] MEDS ORDERED: Atorvastatin Calcium 10 MG TAB PO SCH (21:00)
[2020-06-18] MEDS ORDERED: Calcitriol 0.25 MCG CAP PO SCH (21:00)
[2020-06-18] MEDS ORDERED: Carvedilol 6.25 MG TAB PO SCH (21:00)
--- NOTE | 2020-06-18 21:21 | CT ---
CT GUIDED LEFT SIDED PERCUTANEOUS NEPHROSTOMY PLACEMENT: INDICATION: Left-sided hydronephrosis and obstructing calculus; emergent need for decompression due to sepsis and hypotension. TECHNIQUE: Informed consent was obtained. Preprocedure CT images were obtained for guidance purposes only. The p atient, prior to the procedure, underwent reversal of the patient's Eliquis utilizing K-Sentra. A site overlying the left posterior lateral aspect of the abdomen was marked. Site was prepped and drap ed in the usual sterile fashion. Buffered 1% lidocaine was administered to overlying subcutaneous tissues. The radiology nurse administered 25 mcg of IV fentanyl for the examination. A 5 Tristanian 15 cm Yueh catheter was then guided down to a posterior calyx of the lower pole left kidney. The calyx was accessed and there was spontaneous return of turbid appearing urine. An 035 soft tipped Amplatz w alexx was then advanced into the renal collecting system and confirmed with fluoroscopy. The Yueh catheter was removed and a 8 Tristanian 35 cm nephrostomy catheter was then guided over the wire into the left renal pelvis. A 10 mL sample of urine was obtained for urinary cultures. The left renal pelvis was then decompressed with a gravity bag. The catheter was then sewn in place with 0 silk sutu re. A Percu-Stay device was also placed on the patient's skin. The patient tolerated the procedure without difficulty. Postprocedural images demonstrated no significant perinephric hematoma. No signif icant intraparenchymal hematoma is evident. Total time for the procedure was one hour. IMPRESSION: Successful CT-guided left nephrostomy tube placement. Transcribed Date/Time: 06/19/2020 6:47 AM
[2020-06-18] MEDS: Senokot S 8.6-50 MG TAB PO SCH (22:11)
[2020-06-18 22:32] LABS: Bacteria/HPF 4+ HPF (None Seen); Bilirubin Negative (Negative); Blood, Urine 3+ (Negative); Clarity Extra Turbid (Clear); Glucose, Urine (Dipstick) Normal (Negative); Ketone, Urine Negative (Negative); Leukocyte 500 Leu/uL (Negative); Nitrite Negative (Negative); Protein, Urine (Dipstick) 300 mg/dL (Neg-Trace); RBC/HPF Greater than 50 HPF (0-3); Specific Gravity, Urine 1.012 (1.002-1.036); Squamous Epithelial None Seen HPF (0-3); Urobilinogen Normal mg/dL (Less than 2); WBC/HPF Greater than 50 HPF (0-3); pH, Urine 8.5 (5.0-9.0)
[2020-06-18 22:34] LABS: Urine Culture Reflex Yes Yes
[2020-06-19] MEDS ORDERED: Cefepime 1 GM in Sodium Chloride 0.9% 100 ML IVPB SCH (02:00)
[2020-06-19 04:55] LABS: #Lymphocytes 0.2 thou/uL (1.20-3.40); #Monocytes 0.6 thou/uL (0.11-0.59); %Eosinophils 0.3 % (0.0-10.0); %Lymphocytes 1.9 % (21.0-51.0); %Monocytes 5.8 % (0.0-10.0); Hemoglobin 8.1 g/dL (14.0-18.0); Mean Corpuscular HGB CONC 32.7 g/dL (32.0-36.0); Mean Corpuscular Hemoglobin 34.2 pg (27.0-31.0); Platelet Count 138 thou/uL (130-400); RBC Distribution Width 19.1 % (11.5-14.5); Red Blood Cell (RBC) Count 2.36 mill/uL (4.70-6.10); White Blood Cell (WBC) Count 10.9 thou/uL (4.8-10.8)
[2020-06-19 05:18] LABS: Anion Gap 16 mmol/L (10-20); BUN (Urea Nitrogen) 55 mg/dL (8.4-25.7); Calc. Creatinine Clearance 21 mL/min (70-130); Calcium 7.8 mg/dL (7.8-10.44); Carbon Dioxide 22 mmol/L (23-31); Chloride 105 mmol/L (98-107); Glucose 106 mg/dL (83-110); Potassium 5.2 mmol/L (3.5-5.1); Sodium 138 mmol/L (136-145)
[2020-06-19] MEDS: Senokot S 8.6-50 MG TAB PO SCH (08:01)
[2020-06-19] MEDS ORDERED: Albumin 25% 25 GM/100 ML BOT IVPB ONE (08:56)
[2020-06-19] MEDS ORDERED: Cyanocobalamin (Vitamin B-12) 1,000 MCG TAB PO SCH (09:00)
[2020-06-19] MEDS ORDERED: Folic Acid 1 MG TAB PO SCH (09:00)
[2020-06-19] MEDS ORDERED: Multivit, Therapeutic 1 TAB PO SCH (09:00)
[2020-06-19] MEDS ORDERED: Aspirin 81 mg Enteric Coated Tablet PO SCH (09:00)
[2020-06-19] MEDS ORDERED: Mometasone 200 MCG/Formoterol 5 MCG 120 PUFF INHALER INH SCH (09:00)
[2020-06-19] MEDS ORDERED: pyridOXINE 50 MG (B6) TAB PO SCH ×2 (09:00)
[2020-06-19] MEDS ORDERED: Epoetin (ESRD) 20,000 UNITS/ML SC SCH (09:15)
--- NOTE | 2020-06-19 09:38 | CON ---
DATE OF CONSULTATION: 06/19/20 HISTORY OF PRESENT ILLNESS: Mr. De La Rosa is a 74-year-old white male with known history of chronic renal failure, left upper lobe lung mass, DVT and was initially admitted for left flank pain. Imaging showed that he had a left hydronephrosis. An emergent percutaneous nephrostomy was done. We are now being consulted for his chronic renal failure. Please note that the creatinine has worsen from a baseline of 2.6 to a most recent value of 4.0. REVIEW OF SYSTEMS: Positive for left flank pain. No syncopal episode. No chest pain or shortness of breath. No diarrhea. No constipation. Appetite and energy level are decreased. No fever or chills. No hematochezia. No melena. No hematemesis. No headache. No sore throat. Occasional joint pains. MEDICATIONS: 1. Acetaminophen 650 mg q.8 p.r.n. 2. Atorvastatin 10 mg tablet at bedtime. 3. Calcitriol 0.25 mcg tablet at bedtime. 4. Cefepime 0.5 g IV daily. 5. Cyanocobalamin as directed. 6. Fentanyl 25 mcg IV q.2 p.r.n. 7. Folic acid 0.4 mg once a day. 8. Fluticasone nasal inhaler as needed. 9. Multivitamin daily. 10. Protonix 40 mg b.i.d. PAST MEDICAL HISTORY: 1. Chronic renal failure from a presumed hypertensive nephropathy. 2. History of gastric/esophageal carcinoma. 3. Secondary hyperparathyroidism, history of CHF/decreased EF-cardiomyopathy, chronic lung disease, history of lung mass, DJD, history of bladder cancer-in remission, recently diagnosed with left hydronephrosis. PAST SURGICAL HISTORY: Status post bladder resection with ileal conduit placement, status post cystoscopy, status post right nephrectomy, status post prostatectomy, status post colonoscopy, status post upper GI endoscopy, status post hernia repair of abdominal wall, status post AICD placement, status post cardiac cath. SOCIAL HISTORY: The patient is and lives in [place]. No drug abuse. No smoking. No alcohol. Sedentary lifestyle. Status post blood transfusion. FAMILY HISTORY: No family history of ESRD. ALLERGIES: BACTRIM, CODEINE, ERYTHROMYCIN, LEVAQUIN, NEOMYCIN, PENICILLIN. TRAUMA: None. IMMUNIZATION: Up-to-date. HOSPITALIZATIONS: Please see past medical history. PHYSICAL EXAMINATION: VITAL SIGNS: Blood pressure is noted at 83/48, heart rate 70, respiratory rate 16, temperature 99.3, O2 saturation 94%. GENERAL: The patient is awake, supine, comfortable, not in overt distress. SKIN: Adequate turgor. HEENT: He has slightly pale conjunctivae. Anicteric sclerae. NECK: No neck mass. No carotid bruits. No JVD. CHEST: No deformities. LUNGS: Decreased breath sounds. BACK: Positive for left nephrostomy. ABDOMEN: Globular, soft, nontender. No masses. Positive for ileal conduit. EXTREMITIES: No edema. NEUROLOGIC: Awake and oriented to 3 spheres. Moving all extremities. No tremors. No asterixis. No ataxia. LABORATORY DATA: Laboratories of June 19, 2020; white count 10.9, hemoglobin 8.1. Sodium 138, potassium 5.2, chloride 105, carbon dioxide 22, BUN 55, creatinine 4, glucose 106, calcium 7.8. Troponin I 0.07, albumin 2.7. June 18, 2020, BUN 42, creatinine 2.65. CT scan of the abdomen and pelvis shows left hydronephrosis. CT of the thoracic spine, no osseous lesions noted. Chest x-ray, no overt CHF. Positive for lung masses. ASSESSMENT AND PLAN: 1. Acute kidney injury/chronic renal failure-I suspect a superimposed hemodynamically-mediated renal dysfunction. Creatinine has worsen from 2.6 to a most recent value of 4.0 overnight. Please note, urinalysis did not show any evidence of acute tubular necrosis. The patient's blood pressure is actually on the lower side. I have started albumin infusion at 25 g IV q.6 to improve intravascular volume. I do not see any indication for any emergent hemodialysis at the present time with this patient. 2. Urinary tract infection/urosepsis. Currently, on empiric IV antibiotics. 3. Left hydronephrosis, status post percutaneous nephrostomy placed. Urology is following. 4. Anemia. We can start patient on Epogen 7500 units subcu q.week. Recheck CBC and basic met in a.m. Job ID: [id number] [facility]
[2020-06-19] MEDS: Albumin 25% 25 GM/100 ML BOT IVPB SCH ×2 (10:10→14:50)
[2020-06-19] MEDS ORDERED: EPINEPHrine 1 MG/10 ML Abboject SYRINGE ONE (11:40)
[2020-06-19] MEDS ORDERED: Sodium Bicarb 50 MEQ/50 ML Abboject 8.4% SYRINGE ONE (11:40)
[2020-06-19] MEDS ORDERED: EPOETIN ALFA-EPBX (ESRD) 4,000 UNIT/ML VIAL SC SCH (12:00)
[2020-06-19] MEDS ORDERED: Cefepime 0.5 GM in Sodium Chloride 0.9% 100 ML IVPB SCH (14:00)
--- NOTE | 2020-06-19 14:47 | PDOC.HOSPP ---
- Subjective Encounter Date: 06/19/20 Subjective: The patient is status post nephrostomy tube placement. His pain is controlled. - Objective Vital Signs & Weight: Vital Signs (12 hours) Temp Pulse Resp BP BP BP Pulse Ox 06/19/20 11:55 99.3 F 70 16 103/51 L 95 06/19/20 08:00 94 L 06/19/20 07:55 99.3 F 70 16 95/47 L 94 L 06/19/20 06:59 95 06/19/20 06:57 70 20 95 06/19/20 04:10 98.2 F 72 18 83/48 L 93 L Weight Weight 202 lb 3.2 oz I&O: 06/18/20 06/19/20 06/20/20 06:59 06:59 06:59 Intake Total 420 Output Total 200 Balance 220 Result Diagrams: 06/19/20 04:45 06/19/20 04:45 Hospitalist ROS - Medication Medications: Active Medications Generic Name Dose Route Start Last Admin Trade Name Freq PRN Reason Stop Dose Admin Acetaminophen 650 mg 06/18/20 12:39 06/19/20 12:26 Acetaminophen 325 Mg Tab PO 650 mg Q8H PRN Administration Headache/Fever/Mild Pain (1-3) Albumin Human 25 gm 06/19/20 10:00 06/19/20 10:10 Albumin 25% 25 Gm/100 Ml Bot IVPB 06/20/20 04:01 25 gm Q6H ANGÉLICA Administration Atorvastatin Calcium 10 mg 06/18/20 21:00 06/18/20 22:11 Atorvastatin Calcium 10 Mg Tab PO Not Given HS ANGÉLICA Calcitriol 0.25 mcg 06/18/20 21:00 06/18/20 22:11 Calcitriol 0.25 Mcg Cap PO Not Given HS ANGÉLICA Cyanocobalamin 1,000 mcg 06/19/20 09:00 06/19/20 08:00 Cyanocobalamin (Vitamin B-12) 1,000 Mcg Tab PO 1,000 mcg DAILY ANGÉLICA Administration Folic Acid 0.4 mg 06/19/20 09:00 06/19/20 11:22 Folic Acid 1 Mg Tab PO Not Given DAILY ANGÉLICA Mometasone Furoate/Formoterol Fumar 2 puff 06/19/20 09:00 06/19/20 06:57 Mometasone 200 Mcg/Formoterol 5 Mcg 120 Puff Inhaler INH 2 puff QAM ANGÉLICA Administration Multivitamins 1 tab 06/19/20 09:00 06/19/20 08:01 Multivit, Therapeutic 1 Tab PO 1 tab DAILY ANGÉLICA Administration Pantoprazole Sodium 40 mg 06/18/20 21:00 06/19/20 08:00 Pantoprazole 40 Mg Tab PO 40 mg BID ANGÉLICA Administration Pyridoxine HCl 250 mg 06/19/20 09:00 06/19/20 11:23 Pyridoxine 50 Mg (B6) Tab PO Not Given DAILY ANGÉLICA Senna/Docusate Sodium 1 tab 06/18/20 21:00 06/19/20 08:01 Senokot S 8.6-50 Mg Tab PO 1 tab BID ANGÉLICA Administration - Exam ENT: normocephalic atraumatic Neck: supple, no JVD Respiratory: normal chest expansion, no tachypnea Gastrointestinal: soft Extremities: no cyanosis, no clubbing Neurological: no weakness, no focal deficits Hosp A/P (1) Acute kidney injury superimposed on chronic kidney disease Code(s): N17.9 - ACUTE KIDNEY FAILURE, UNSPECIFIED; N18.9 - CHRONIC KIDNEY DISEASE, UNSPECIFIED Status: Acute (2) Urinary obstruction Status: Acute (3) History of bladder cancer Code(s): Z85.51 - PERSONAL HISTORY OF MALIGNANT NEOPLASM OF BLADDER Status: A cute (4) Lung mass Code(s): R91.8 - OTHER NONSPECIFIC ABNORMAL FINDING OF LUNG FIELD Status: Acute (5) Chronic systolic heart failure Code(s): I50.22 - CHRONIC SYSTOLIC (CONGESTIVE) HEART FAILURE Status: Chronic (6) Diabetes mellitus Code(s): E11.9 - TYPE 2 DIABETES MELLITUS WITHOUT COMPLICATIONS Status: Chronic (7) Hyperlipidemia Code(s): E78.5 - HYPERLIPIDEMIA, UNSPECIFIED Status: Chronic (8) Hypertension Code(s): I10 - ESSENTIAL (PRIMARY) HYPERTENSION Status: Chronic - Plan Status post left nephrostomy tube. Continue to monitor urine output. Creatinine level worsened since yesterday likely due to renal obstruction. There is mild hyperkalemia but no acute indication for hemodialysis per nephrology. The patient will continue outpatient follow-up for the lung mass with his oncologist. Continue current medical management.
--- NOTE | 2020-06-19 15:10 | PRG ---
DATE OF SERVICE: 06/19/2020 This is a patient I have taken care of off and on through the years. He is 74-year-old. He had a history of bladder cancer, had a cystectomy, prostatectomy, and Danuta pouch done. 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 I do not think it was related to cancer. I would have to review my chart at office, I think it was actually related to the recurrent infections, possibly the stones. This was all done before even moving [facility]. He came in with left flank pain and decreased urine output, I think it was yesterday. His creatinine initially was normal, then went up to 4, he had a nephrostomy tube placed for a fairly significant left hydronephrosis with a possible stone in the area where the ureter comes into the [place] pouch. He has white cells, red cells, and some bacteria in the urine and he is on cefepime currently. He is afebrile. His creatinine has not yet been repeated. He was anemic. He is receiving some blood for that I believe and I think Dr. Brody is going to put him on Epogen. He also has a lot of other underlying health disease. He has a [facility]iPort in and sees Dr. Pandya. I think he sees him for, I think it was gastric cancer perhaps and I do not know at this point in time, if he will be receiving any further therapy in that regard. Currently, he appears comfortable. His nephrostomy tube is draining, the urine is clearing up. Again, he does not have unstable vital signs. So, at this point, we will leave this tube in for next couple of days. See what his culture shows, make sure he is on the correct antibiotics, see what his creatinine does. We will need to look at perhaps trying to see if Radiology could get a wire and maybe an internal or external stent across this. I think it will be probably difficult to get to the ureter from his pouch, so this may have to be presented from above. But we are going to wait until we know his culture results, until his creatinine stabilized. I will follow along with you at this time. Job ID: [id number]
--- NOTE | 2020-06-19 16:12 | CT ---
CT GUIDED LEFT SIDED PERCUTANEOUS NEPHROSTOMY PLACEMENT: INDICATION: Left-sided hydronephrosis and obstructing calculus; emergent need for decompression due to sepsis and hypotension. TECHNIQUE: Informed consent was obtained. Preprocedure CT images were obtained for guidance purposes only. The p atient, prior to the procedure, underwent reversal of the patient's Eliquis utilizing K-Sentra. A site overlying the left posterior lateral aspect of the abdomen was marked. Site was prepped and drap ed in the usual sterile fashion. Buffered 1% lidocaine was administered to overlying subcutaneous tissues. The radiology nurse administered 25 mcg of IV fentanyl for the examination. A 5 Burmese 15 cm Yueh catheter was then guided down to a posterior calyx of the lower pole left kidney. The calyx was accessed and there was spontaneous return of turbid appearing urine. An 035 soft tipped Amplatz w alexx was then advanced into the renal collecting system and confirmed with fluoroscopy. The Yueh catheter was removed and a 8 Burmese 35 cm nephrostomy catheter was then guided over the wire into the left renal pelvis. A 10 mL sample of urine was obtained for urinary cultures. The left renal pelvis was then decompressed with a gravity bag. The catheter was then sewn in place with 0 silk sutu re. A Percu-Stay device was also placed on the patient's skin. The patient tolerated the procedure without difficulty. Postprocedural images demonstrated no significant perinephric hematoma. No signif icant intraparenchymal hematoma is evident. Total time for the procedure was one hour. IMPRESSION: Successful CT-guided left nephrostomy tube placement. Transcribed Date/Time: 06/19/2020 4:12 PM
[2020-06-19] MEDS ORDERED: Norepinephrine 8 MG/0.9% NS 250 ML IVPB SCH (17:15)
[2020-06-19 17:24] LABS: Actual Bicarbonate (HCO3a) 15.9 mEq/L (22-28); Analyzer IN Cardio OR; Base Excess (BEa) -11.2 mEq/L (-2.0 to +3.0); CO2 Tension 40.3 mmHg (35.0-45.0); Carboxyhemoglobin (COHb) 1.3 gm% (0.0-3.0); Hemoglobin (Hb) 8.7 g/dL (14.0-18.0); O2 Tension (PaO2), arterial 107.9 mmHg (> 70.0); Potassium - ABG Lab 6.11 mmol/L (3.70-5.30)
[2020-06-19 17:25] LABS: pH, Arterial 7.21 (7.35-7.45)
--- NOTE | 2020-06-19 17:33 | RAD ---
Portable frontal chest radiograph: 06/19/2020 COMPARISON: 06/18/2020 HISTORY: Respiratory distress, intubated patient FINDINGS: Endotracheal tube present, distal tip overlying the region of the clavicular heads. There i s enlargement of the cardiac silhouette. There is a CT injectable right-sided Port-A-Cath. Stable dual lead transvenous AICD. There is worsening dense opacity in the medial left upper lobe/left perihilar region. Dense opacity a lso noted within both lung bases, left greater than right, nonspecific. Opacity within the lung bases has worsened since the prior exam. Supine nature of the exam limits assessment for pneumothorax and pleural fluid. IMPRESSION: Interval intubation. Worsening nonspecific parenchymal opacity in the left perihilar destiny on and left upper lobe as well as worsening bibasilar opacity. Findings may be related to edema, infectious pneumonitis, and/or aspiration. Short-term follow-up imaging following treatment advised. The chest could be better assessed with follow-up CT as clinically warranted.
[2020-06-19] MEDS ORDERED: Norepinephrine 8 MG/0.9% NS 250 ML ONE (17:35)
[2020-06-19 17:50] LABS: Actual Bicarbonate (HCO3a) 13.3 mEq/L (22-28); Base Excess (BEa) -12.9 mEq/L (-2.0 to +3.0); CO2 Tension 31.7 mmHg (35.0-45.0); Carboxyhemoglobin (COHb) 0.7 gm% (0.0-3.0); Hemoglobin (Hb) 7.9 g/dL (14.0-18.0); O2 Tension (PaO2), arterial 202.7 mmHg (> 70.0); Potassium - ABG Lab 5.85 mmol/L (3.70-5.30)
[2020-06-19 17:53] LABS: ALV-art Gradient 470.675 mmHg (0-20); Puncture Site ALINE; pH, Arterial 7.24 (7.35-7.45)
[2020-06-19] MEDS ORDERED: Sodium Bicarbonate 150 MEQ in Dextrose 5% in Water 1,000 ML IV SCH (18:00)
[2020-06-19 18:04] LABS: #Lymphocytes 0.6 thou/uL (1.20-3.40); #Monocytes 0.4 thou/uL (0.11-0.59); %Basophils 0.3 % (0.0-1.0); %Eosinophils 0.4 % (0.0-10.0); %Lymphocytes 8.9 % (21.0-51.0); %Monocytes 5.2 % (0.0-10.0); %Neutrophils 85.3 % (42.0-75.0); Hemoglobin 7.5 g/dL (14.0-18.0); Mean Corpuscular HGB CONC 32.6 g/dL (32.0-36.0); Mean Platelet Volume 8.9 fL (7.4-10.4); Platelet Count 124 thou/uL (130-400); RBC Distribution Width 19.1 % (11.5-14.5); Red Blood Cell (RBC) Count 2.13 mill/uL (4.70-6.10); White Blood Cell (WBC) Count 7.1 thou/uL (4.8-10.8)
[2020-06-19 18:25] LABS: Anion Gap 23 mmol/L (10-20); BUN (Urea Nitrogen) 57 mg/dL (8.4-25.7); Calc. Creatinine Clearance 20 mL/min (70-130); Calcium 7.4 mg/dL (7.8-10.44); Carbon Dioxide 12 mmol/L (23-31); Chloride 110 mmol/L (98-107); Glucose 91 mg/dL (83-110); Potassium 5.8 mmol/L (3.5-5.1); Sodium 139 mmol/L (136-145)
[2020-06-19] MEDS ORDERED: Hydrocortisone Sod Succ/PF 250 mg/2 ml Vial SLOW IVP SCH (18:30)
[2020-06-19] MEDS ORDERED: Vasopressin 20 UNIT, Admixture Fee 1 EACH in Sodium Chloride 0.9% 50 ML IV SCH (18:45)
[2020-06-19] MEDS ORDERED: EPINEPHrine 4 MG in Dextrose 5% in Water 250 ML IV SCH (18:45)
[2020-06-19 18:48] VITALS: BP 71/31
[2020-06-19 19:08] VITALS: TEMP 97
--- NOTE | 2020-06-19 21:54 | CON ---
DATE OF CONSULTATION: 06/19/2020 HISTORY OF PRESENT ILLNESS: Mr. De La Rosa is a 74-year-old male, who had a nephrostomy tube placed yesterday. Today, he was doing well according to the when she left at 10:30 this morning. He came back this afternoon and he was telling her that something was not right. The tells me that a assistant in nursing and instructor came in to take blood pressure and had difficulty getting blood pressures. Shanti Ojeda was called followed by Shanti Iverson. He had no chest compressions. PAST MEDICAL HISTORY: Remarkable for: 1. A complicated urological history. He has had a bladder cancer resected. He has had a kidney resected. He has had prostate cancer and had prostate resected. 2. 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 3. History of cardiomyopathy. 4. History of atrial fibrillation with two ablation procedures. 5. History of pacemaker defibrillator. He said the battery replaced once as it was firing with atrial fibrillation apparently according to his . 6. History of lipid disorder. 7. 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 I did not find this out until after I had placed his lines on that side. FAMILY HISTORY: Negative for lung disease in early age. SOCIAL HISTORY: He is a nonsmoker, nondrinker. ALLERGIES: HE HAS BACITRACIN, BACTRIM, CODEINE, ERYTHROMYCIN, FUROSEMIDE, LEVAQUIN, PHENERGAN ALLERGIES. MEDICATIONS: Have been reviewed. REVIEW OF SYSTEMS: Not obtainable. PHYSICAL EXAMINATION: GENERAL: He is intubated. VITAL SIGNS: Pressures in the 70s. HEENT: His pupils react. Sclerae are anicteric. He is orally intubated. NECK: Without lymphadenopathy. LUNGS: Clear anteriorly. HEART: Regular rhythm. ABDOMEN: Soft. EXTREMITIES: With asymmetry with his right lower extremity larger than his left with a nephrostomy tube in place. When he arrived, given his hypotension, need for pressors, his right groin was shaved and prepped with Betadine followed by chlorhexidine. An introducer needle was inserted in the femoral vein on the right and wire was passed. Triple-lumen catheter was inserted and sewn in place x2. Femoral artery was then cannulated using 5-Chadian introducer needle. A wire was passed and a Cook 5-Chadian arterial line was inserted and sewn in place. Dressings were applied. He has good waveform when connected to the monitor. He was hyperventilated. He was started on bicarb drip. He was initially on Levophed. An epinephrine drip and vasopressin were added. Cortisol level was drawn. Stress dose steroids were given. I just received a call from the nurse that the family wants to withdraw care. This will be done shortly. Critical care time 35 min excluding procedures. Job ID: [id number] MTDD
--- NOTE | 2020-06-20 00:20 | CON ---
DATE OF CONSULTATION: 06/19/2020 Critical care time was 90 minutes, independent of procedures performed. I did meet with the also after all the above. I answered all of her questions. She wanted to make him a do not resuscitate. Patient is wanting at that time to continue with everything until her daughter arrived. She was coming from [place], [place]. Critical care time 90 min excluding procedures. Job ID: [id number] MTDD
--- NOTE | 2020-06-20 14:25 | DIS ---
DATE OF ADMISSION: 06/18/2020 DATE OF DISCHARGE: 06/19/2020 DISCHARGE DIAGNOSES: 1. Septic shock. 2. Complicated urinary tract infection. 3. History of bladder cancer. 4. Lung mass. 5. Chronic systolic heart failure. 6. Diabetes mellitus. 7. Hyperlipidemia. 8. Hypertension. DISPOSITION: The patient on 06/20/20. HISTORY OF PRESENT ILLNESS AND HOSPITAL COURSE: The patient was a 74-year-old male with past medical history of chronic kidney disease, bladder cancer, congestive heart failure, and lung mass was admitted to the hospital for complicated urinary tract infection and urinary obstruction requiring nephrostomy tube placement. The patient's hospitalization was complicated by septic shock despite being on IV antibiotics. His condition deteriorated and ultimately his family decided to pursue comfort care. The patient succumbed to his illness at 8:05 p.m. on 06/20/2020. Job ID: [id number]
--- NOTE | 2020-06-21 12:25 | PQF ---
CLINICAL DOCUMENTATION CLARIFICATION FORM: Dear : Bird Sandra MD Date / Time: 06/21/2020 Please exercise your independent, professional judgment in responding to the clarification form. Clinical indicators are provided on the bottom of this form for your review Please check appropriate box(es): [ ] Sepsis due to: [ >] Severe sepsis with associated acute organ dysfunction: [ ] Acute Respiratory Failure [> ] Acute Kidney injury w/o ATN [ ] Acute Kidney Injury w ATN [ ] Encephalopathy (metabolic) (septic) [ ] Disseminated Intravascular Coagulopathy (DIC) [ ] Hepatic Failure [ ] Additional/Other: please specify: [ ] Septic Shock [ ] Localized infection without sepsis [ ] SIRS due to non-infectious process (please specify etiology) [ ] with organ dysfunction [ ] without organ dysfunction [ ] Other diagnosis (Please specify if any) [ ] Unable to determine In addition, please specify: Present on Admission (POA): [> ] Yes [ ] No [ ] Unable to determine Physician Signature: Date/Time: For continuity of documentation, please document condition throughout progress notes and discharge summary. Thank You To be completed by CDI/Coding staff for physician review: Present Clinical Indicators - Signs / Symptoms / Labs Results and Location in Medical Record [ ] Altered mental status, increased confusion, obtunded [ ] Fever or hypothermia (<96.8 F/36 C or > 100.4 F/38C) [x] Respiratory rate >20/min, hypoxemia, and or hypercapnia RR-30 H vitals on 06/19 [ ] Heart Rate/Tachycardia (>90 bpm), SBP<100mmHg [x] Acute organ dysfunction/failure SHARI on CKD 3 H&P on 06/18 [ ] Metabolic acidosis Lactic Acid >2mmol/L OR 36mg/dL, [x] Oliguria , increase BUN/Cr, decreased GFR, elevated liver enzymes Cr-4.17 - Laboratory on 06/19 [x] Urinary tract infection/urosepsis. Consult on 06/19 [x] Left sided hydronephrosis & obstructing calculus, emergent need for decompression due to sepsis & hypotension Guidance needle placement CT on 06/18 [x] BP 71/31 L Vitals on 06/19 [x] WBC count 10.9 H Laboratory on 06/19 [ ] Hyperglycemia in absence of diabetes mellitus [ ] Positive blood cultures Present Risk Factors Results and Location in Medical Record [ ] Infection/Bacteremia [ ] Pneumonia, UTI, infected wound, gangrenous gall bladder Diabetes or Cancer [ ] Surgery / surgical instrumentation / trauma Ruptured/perforated bowel, ruptured appendix [ ] Immunosuppression [x] Advancing Age 74 M H&P on 06/18 Present Treatments Results and Location in Medical Record [ ] Initiation Sepsis Protocol ICU [ ] Daily CBC, blood/sputum/wound cx [ ] ID Consult [ ] IV Antibiotics broad spectrum [ ] IV ?uids [x] Vasopressors IV Medication from 06/19 [ ] Consultants; ID, GI, Pulmonary, Hematology CDS/Slaughterer Religious Ritual Signature: AAS Phone #: Date/Time: 06/21/2020 This is a permanent part of the Medical Record MTDD
--- NOTE | 2020-06-21 15:26 | PQF ---
CLINICAL DOCUMENTATION CLARIFICATION FORM: Dear Dr. Sandra Date: 07-05-20 Please exercise your independent, professional judgment in responding to the clarification form. Clinical indicators are provided on the bottom of this form for your review. Please check appropriate box(es): [> ] Acute Respiratory Failure: [> ] with Hypoxia [ ] with Hypercapnia [ ] Acute On Chronic Respiratory Failure: [ ] with Hypoxia [ ] with Hypercapnia [ ] Chronic Respiratory Failure only [ ] with Hypoxia [ ] with Hypercapnia [ ] Other diagnosis [ ] Unable to determine In addition, please specify: Present on Admission (POA): [> ] Yes [ ] No [ ] Unable to determine For continuity of documentation, please document condition throughout progress notes and discharge summary. Thank You. To be completed by CDI/Coding staff for physician review: CLINICAL INDICATORS - SIGNS / SYMPTOMS / LABS / RESULTS AND LOCATION IN MR 11-1 ED: O2 SAT 96-98% on 2-3LNC usually on home O2 @ 2LNC - recently found mass on lung - then put on O2 - was in the 80's so they bumped his O2 to 3L RR 14-24 - Consult (Ronaldo): Hypotension - ABG: pH @ 1642 7.21 @ 1742 7.24 Vital Signs 11- @ 1847 71/31 11-2 MAP 99-35 O2 Sat 11-2 @0146-6074 91@-50% 11-2 Respiratory Therapy Note - Macho Olguin - code green called - placed on NRB due to patient desat and lethargy. Vineet ABD and ran, then code blue called upon returning to pt. Pt intubated shortly after and transported to CCU. RISK FACTORS / RESULTS AND LOCATION IN MR 11-1 H&P ([facility]): Recent dx of acute on chronic respiratory failure w/ hypoxia. DCd from hospital 05-24-20. He is on 3L of NC at home. Left upper lob lung mass PMH: heart failure; adenocarcinoma; bladder cancer; with artificial bladder; nephrectomy on right; TREATMENTS / RESULTS AND LOCATION IN MR 11-2 ABG - Consult (Ronaldo): Physical exam he is intubated Triple-lumen catheter placed right femoral artery need for pressors Bicarb drip Initially on Levophed an Epinephrine drip and vasopressin were added Cortisol level drawn Stress dose steroids given -2 On Vent @ 1729 Vent turned off 11-2 @ 1945 Acute Respiratory Failure: ABG pH < 7.35 or > 7.45; Decreased oxygen saturation (<90% room air or < 95% on oxygen); PCO2 > 50 mm Hg; PO2 <60623 60 mm Hg; Labored or rapid respirations ARDS: Dx Criteria [Emmet ARDS]: Respiratory symptoms within one week of a known clinical insult (e.g. shock, infection, surgery, trauma) Bilateral opacities in CXR/Chest CT not due to CHF or fluid CDS Signature: Padma De León RN, CCDS Phone #: [phone] [email or web address] This is a permanent part of the Medical Record [facility]
--- NOTE | 2020-06-24 16:56 | EKG ---
Test Reason : Blood Pressure : / mmHG Vent. Rate : 071 BPM Atrial Rate : 071 BPM P-R Int : 000 ms QRS Dur : 200 ms QT Int : 506 ms P-R-T Axes : 000 066 269 degrees QTc Int : 549 ms Electronic atrial pacemaker Left bundle branch block Abnormal ECG Confirmed by BRAYAN ALMONTE ([id number]), video editor RIKKI REAL ([id number]) on 06/24/2020 4:56:09 PM Referred By: Confirmed By:BRAYAN ALMONTE
== END 2020-06-19 20:05 | disposition expired | DRG 871 ==
LOC: ERS 06:52 → ERHOLD 11:43 → 2NO 20:59 → CCU 06-19 17:16
PROVIDERS: ADMIT Internal Medicine; ATTEND Internal Medicine
PROC: 0T9130Z Drainage of Left Kidney with Drainage Device, Percutaneous Approach (ICD-10-PCS; principal; 2020-06-18)
PROC: 3E033XZ Introduction of Vasopressor into Peripheral Vein, Percutaneous Approach (ICD-10-PCS; 2020-06-19)
PROC: 06HY33Z Insertion of Infusion Device into Lower Vein, Percutaneous Approach (ICD-10-PCS; 2020-06-19)
DX: A41.9 Sepsis, unspecified organism (principal); R65.21 Severe sepsis with septic shock; J96.01 Acute respiratory failure with hypoxia; N13.2 Hydronephrosis with renal and ureteral calculous obstruction; I50.22 Chronic systolic (congestive) heart failure; I13.0 Hypertensive heart and chronic kidney disease with heart failure and stage 1 through stage 4 chronic kidney disease, or unspecified chronic kidney disease; I42.9 Cardiomyopathy, unspecified; N17.9 Acute kidney failure, unspecified; N25.81 Secondary hyperparathyroidism of renal origin; I48.91 Unspecified atrial fibrillation; K21.9 Gastro-esophageal reflux disease without esophagitis; E78.5 Hyperlipidemia, unspecified; J44.9 Chronic obstructive pulmonary disease, unspecified; E11.22 Type 2 diabetes mellitus with diabetic chronic kidney disease; N18.30 Chronic kidney disease, stage 3 unspecified; E87.5 Hyperkalemia; Z51.5 Encounter for palliative care; Z66 Do not resuscitate; R77.8 Other specified abnormalities of plasma proteins; R91.8 Other nonspecific abnormal finding of lung field; Z79.899 Other long term (current) drug therapy; Z88.2 Allergy status to sulfonamides; Z88.1 Allergy status to other antibiotic agents; Z88.8 Allergy status to other drugs, medicaments and biological substances; Z79.01 Long term (current) use of anticoagulants; Z88.0 Allergy status to penicillin; Z79.82 Long term (current) use of aspirin; Z85.51 Personal history of malignant neoplasm of bladder; D64.9 Anemia, unspecified; Z86.718 Personal history of other venous thrombosis and embolism; Z90.5 Acquired absence of kidney; Z85.01 Personal history of malignant neoplasm of esophagus; Z88.6 Allergy status to analgesic agent; Z90.79 Acquired absence of other genital organ(s); Z95.810 Presence of automatic (implantable) cardiac defibrillator
CPT/HCPCS: 36415; 36416; 36430; 50020; 71045; 72128; 72131; 74176; 77002; 80048; 80053; 81001; 82533; 82550; 82553; 82805; 83605; 84484; 85025; 86850; 86900; 86901; 87077; 87086; 87186; 93005; 94002; 94664; 96365; 96375; 96376; C1729; C9132; J0171; J0692; J1720; J2270; J2405; J3010; J3490; J7070; P9016; P9047; Q5105